=== PATIENT | male | born 1960 | race African-American/Black ===

== ENCOUNTER 2016-07-12 13:59 | Emergency (ER) | payer MEDICARE, OTHER ==
[~2016-07-12] VITALS: Ht 188 cm; Wt 100.0 kg
[~2016-07-12 13:59] MED LIST: ALBU8HFA4 IH; BUPR-93 PO; DOCU250C91 PO; MIRT30TA2 PO; NICO21T TD; OMEP20 PO; TAMS0.4C32 PO
[2016-07-12 14:23] VITALS: BP 123/71
[2016-07-12] MEDS ORDERED: OXYC10IR PO (14:43)
[2016-07-12] MEDS ORDERED: OXYM20TA14 PO (14:43)
[2016-07-12] MEDS ORDERED: METH10SO PO (14:43)
[2016-07-12] MEDS ORDERED: KETOROLAC TROMETHAMINE 30 MG/ML VIAL IVP ONE (18:00)
[2016-07-12 18:26] LABS: BASOPHILS % (AUTO) 0.8 % (0.0-2.0); EOSINOPHILS % (AUTO) 2.6 % (1.0-6.0); HEMATOCRIT 39.8 % (41-53); HEMOGLOBIN 12.5 g/dL (13.5-17.5); LYMPHOCYTES # (AUTO) 4.5 K/uL (1.0-4.8); LYMPHOCYTES % (AUTO) 46.9 % (22.0-44.0); MEAN CORPUSCULAR HEMOGLOBIN 28.5 pg (26.0-34.0); MEAN CORPUSCULAR HGB CONC 31.3 G/dL (31.0-37.0); MEAN CORPUSCULAR VOLUME 91 fL (80-100); MONOCYTES # (AUTO) 1.1 K/uL (0.1-1.0); MONOCYTES % (AUTO) 11.5 % (2.0-9.0); NEUTROPHILS # (AUTO) 3.7 K/uL (1.8-7.7); NEUTROPHILS % (AUTO) 38.2 % (40.0-70.0); PLATELET COUNT (AUTO) 353 K/uL (150-450); RED BLOOD CELL COUNT(AUTO) 4.38 MIL/uL (4.50-5.90); RED CELL DISTRIBUTION WIDTH 16.1 % (11.5-14.5); WHITE BLOOD COUNT (AUTO) 9.7 K/uL (4.5-11.0)
[2016-07-12 18:38] LABS: ANION GAP 6 mmol/L (8-16); CALCIUM, TOTAL 8.7 mg/dL (8.8-10.5); CARBON DIOXIDE 30 mmol/L (22-29); CHLORIDE 103 mmol/L (98-107); CREATININE 1.14 mg/dL (0.60-1.30); GLOMERULAR FILTR. RATE CALC > 60 mL/min (>60); POTASSIUM 4.1 mmol/L (3.5-5.1); SODIUM SERUM 139 mmol/L (136-145); UREA NITROGEN, BLOOD 6 mg/dL (7-18)
[2016-07-12 18:40] LABS: PROTHROMBIN TIME 10.8 SEC (9.4-11.6)
[2016-07-12 18:45] LABS: ALANINE AMINOTRANSFERASE 63 U/L (12-78); ASPARTATE AMINOTRANSFERASE 37 U/L (15-37); BILIRUBIN,TOTAL 0.2 mg/dL (0.1-1.0); TOTAL PROTEIN, SERUM 8.5 g/dL (6.4-8.2)
[2016-07-12] MEDS ORDERED: KETOROLAC TROMETHAMINE 60 MG/2 ML VIAL IM ONE (19:00)
[2016-07-12] MEDS ORDERED: MORPHINE SULFATE 10 MG/ML SYRINGE IM ONE (19:30)
[2016-07-12] MEDS ORDERED: ONDANSETRON HCL 4 MG/2 ML VIAL IM ONE (19:30)
[2016-07-12] MEDS ORDERED: CEPHALEXIN MONOHYDRATE 500 MG CAPSULE PO ONE (19:30)
[2016-07-12] MEDS ORDERED: SULFAMETHOX/TRIMETH DS 800-160 MG/TABLET PO ONE (19:30)
== END 2016-07-12 19:57 | disposition home or self-care (01) ==
LOC: EMS 14:01
DX: L03.116 Cellulitis of left lower limb (principal); F17.210 Nicotine dependence, cigarettes, uncomplicated; Z91.013 Allergy to seafood
CPT/HCPCS: 36415; 80053; 85025; 85610; 85730; 93971; 96372; 99285; J1885; J2270; J2405

== ENCOUNTER 2016-10-03 21:38 | Inpatient (IN) | payer MEDICARE, MEDICAID ==
[~2016-10-03] VITALS: Ht 188 cm; Wt 93.0 kg
[~2016-10-03 21:38] MED LIST changes: -ALBU8HFA4 IH; -DOCU250C91 PO; +METH10SO PO; -NICO21T TD; -OMEP20 PO; +OXYC10IR PO; +OXYM20TA14 PO; -TAMS0.4C32 PO
[2016-10-03] MEDS ORDERED: QUEtiapine FUMARATE 100 MG TABLET PO PRN (22:30)
[2016-10-03 22:56] VITALS: BP 127/78
[2016-10-04 00:21] VITALS: BP 139/77
[2016-10-04] MEDS: ZOLPIDEM TARTRATE 10 MG TABLET PO PRN ×2 (00:38→21:23)
[2016-10-04] MEDS: LORazepam 2 MG TABLET PO PRN (04:10)
[2016-10-04 08:47] VITALS: BP 123/77
[2016-10-04] MEDS: BuPROPion HCL XL 150 MG ER TABLET PO SCH (09:04)
[2016-10-04] MEDS ORDERED: LOPERAMIDE HCL 2 MG CAPSULE PO PRN (09:15)
[2016-10-04] MEDS ORDERED: PETROLATUM,WHITE 71 GM JELLY TP PRN (09:15)
[2016-10-04] MEDS ORDERED: IBUPROFEN 600 MG TABLET PO PRN (09:15)
[2016-10-04] MEDS ORDERED: MAGNESIUM HYDROXIDE SUSPENSION 30 ML UDCUP PO PRN (09:15)
[2016-10-04] MEDS ORDERED: ALBUTEROL SULFATE HFA 90 MCG/PUFF 8 GM INHALER IH PRN (09:15)
[2016-10-04] MEDS ORDERED: ACETAMINOPHEN 325 MG TABLET PO PRN (09:15)
[2016-10-04] MEDS ORDERED: ONDANSETRON HCL 4 MG TABLET PO PRN (09:15)
[2016-10-04] MEDS ORDERED: MAG HYDROX/AL HYDROX/SIMETH ES 30 ML SUSPENSION UDCUP PO PRN (09:15)
[2016-10-04] MEDS ORDERED: BENZOCAINE/MENTHOL LOZENGE MM PRN (09:15)
[2016-10-04] MEDS ORDERED: BACITRACIN 28.4 GM OINTMENT TP PRN (09:15)
[2016-10-04] MEDS ORDERED: METHADONE HCL 10 MG/5 ML SOLUTION ORAL.SYG PO SCH (09:15)
[2016-10-04] MEDS ORDERED: CloNIDine HCL 0.1 MG TABLET PO PRN (09:15)
[2016-10-04] MEDS: NICOTINE 21 MG/24 HOUR PATCH TD SCH (12:52)
[2016-10-04] MEDS ORDERED: METHADONE HCL 10 MG/5 ML SOLUTION ORAL.SYG PO ONE (15:15)
[2016-10-04] MEDS: OxyCODONE HCL 10 MG IR TABLET PO SCH ×2 (16:27→20:34)
[2016-10-04 16:31] VITALS: BP 135/88
[2016-10-04] MEDS ORDERED: DENTURE ADHESIVE 68 GM CREAM DT PRN (19:30)
[2016-10-04] MEDS: MIRTAZAPINE 15 MG TABLET PO SCH (20:34)
[2016-10-05 00:40] VITALS: BP 113/74
[2016-10-05] MEDS: LORazepam 2 MG TABLET PO PRN ×2 (00:44→17:43)
[2016-10-05] MEDS: METHADONE HCL 10 MG/5 ML SOLUTION ORAL.SYG PO SCH (06:57)
[2016-10-05 08:38] VITALS: BP 125/82
[2016-10-05] MEDS: NICOTINE 21 MG/24 HOUR PATCH TD SCH (09:07)
[2016-10-05] MEDS: TAMSULOSIN HCL 0.4 MG CAPSULE PO SCH (09:07)
[2016-10-05] MEDS: OxyCODONE HCL 10 MG IR TABLET PO SCH ×4 (09:07→20:07)
[2016-10-05] MEDS: MULTIVITAMINS WITH MINERALS, THERAPEUTIC TABLET PO SCH (09:07)
[2016-10-05] MEDS: BuPROPion HCL XL 150 MG ER TABLET PO SCH (09:08)
[2016-10-05] MEDS: OMEPRAZOLE 20 MG CAPSULE PO SCH (09:08)
[2016-10-05] MEDS: DOCUSATE SODIUM 100 MG CAPSULE PO SCH (09:08)
[2016-10-05 16:17] VITALS: BP 137/78
[2016-10-05] MEDS: MIRTAZAPINE 15 MG TABLET PO SCH (20:07)
[2016-10-06 00:10] VITALS: BP 138/66
[2016-10-06] MEDS: LORazepam 2 MG TABLET PO PRN (01:21)
[2016-10-06 06:00] VITALS: BP 127/79
[2016-10-06] MEDS: METHADONE HCL 10 MG/5 ML SOLUTION ORAL.SYG PO SCH (06:09)
[2016-10-06 08:24] VITALS: BP 115/60
[2016-10-06] MEDS: OMEPRAZOLE 20 MG CAPSULE PO SCH (09:17)
[2016-10-06] MEDS: DOCUSATE SODIUM 100 MG CAPSULE PO SCH (09:17)
[2016-10-06] MEDS: BuPROPion HCL XL 150 MG ER TABLET PO SCH (09:17)
[2016-10-06] MEDS: TAMSULOSIN HCL 0.4 MG CAPSULE PO SCH (09:17)
[2016-10-06] MEDS: MULTIVITAMINS WITH MINERALS, THERAPEUTIC TABLET PO SCH (09:17)
[2016-10-06] MEDS: NICOTINE 21 MG/24 HOUR PATCH TD SCH (09:18)
[2016-10-06] MEDS: OxyCODONE HCL 10 MG IR TABLET PO SCH ×4 (09:21→20:07)
[2016-10-06 16:07] VITALS: BP 110/73
[2016-10-06] MEDS: MIRTAZAPINE 15 MG TABLET PO SCH (20:06)
[2016-10-06] MEDS: ZOLPIDEM TARTRATE 10 MG TABLET PO PRN (21:00)
[2016-10-07 00:44] VITALS: BP 104/65
[2016-10-07] MEDS: LORazepam 2 MG TABLET PO PRN ×2 (00:57→18:41)
[2016-10-07 05:53] VITALS: BP 119/70
[2016-10-07] MEDS: METHADONE HCL 10 MG/5 ML SOLUTION ORAL.SYG PO SCH (05:54)
[2016-10-07 08:29] VITALS: BP 117/73
[2016-10-07] MEDS: DOCUSATE SODIUM 100 MG CAPSULE PO SCH (08:29)
[2016-10-07] MEDS: OMEPRAZOLE 20 MG CAPSULE PO SCH (08:29)
[2016-10-07] MEDS: BuPROPion HCL XL 150 MG ER TABLET PO SCH (08:29)
[2016-10-07] MEDS: MULTIVITAMINS WITH MINERALS, THERAPEUTIC TABLET PO SCH (08:29)
[2016-10-07] MEDS: TAMSULOSIN HCL 0.4 MG CAPSULE PO SCH (08:29)
[2016-10-07] MEDS: OxyCODONE HCL 10 MG IR TABLET PO SCH ×4 (08:30→21:09)
[2016-10-07] MEDS: NICOTINE 21 MG/24 HOUR PATCH TD SCH (08:30)
[2016-10-07 16:11] VITALS: BP 114/70
[2016-10-07] MEDS: MIRTAZAPINE 15 MG TABLET PO SCH (21:08)
[2016-10-07] MEDS: ZOLPIDEM TARTRATE 10 MG TABLET PO PRN (22:38)
[2016-10-08 01:28] VITALS: BP 112/62
[2016-10-08] MEDS: LORazepam 2 MG TABLET PO PRN ×2 (01:33→23:51)
[2016-10-08 05:41] VITALS: BP 138/72
[2016-10-08] MEDS: METHADONE HCL 10 MG/5 ML SOLUTION ORAL.SYG PO SCH (05:44)
[2016-10-08 08:22] VITALS: BP 114/72
[2016-10-08] MEDS: NICOTINE 21 MG/24 HOUR PATCH TD SCH (09:15)
[2016-10-08] MEDS: MULTIVITAMINS WITH MINERALS, THERAPEUTIC TABLET PO SCH (09:16)
[2016-10-08] MEDS: OMEPRAZOLE 20 MG CAPSULE PO SCH (09:17)
[2016-10-08] MEDS: DOCUSATE SODIUM 100 MG CAPSULE PO SCH (09:17)
[2016-10-08] MEDS: BuPROPion HCL XL 150 MG ER TABLET PO SCH (09:17)
[2016-10-08] MEDS: OxyCODONE HCL 10 MG IR TABLET PO SCH ×4 (09:18→20:17)
[2016-10-08] MEDS: TAMSULOSIN HCL 0.4 MG CAPSULE PO SCH (10:25)
[2016-10-08 16:34] VITALS: BP 122/79
[2016-10-08] MEDS: MIRTAZAPINE 15 MG TABLET PO SCH (20:17)
[2016-10-08] MEDS: ZOLPIDEM TARTRATE 10 MG TABLET PO PRN (22:04)
[2016-10-09 00:01] VITALS: BP 124/86
[2016-10-09] MEDS: METHADONE HCL 10 MG/5 ML SOLUTION ORAL.SYG PO SCH (06:01)
[2016-10-09 08:11] LABS: BASOPHILS % (AUTO) 0.7 % (0.0-2.0); HEMATOCRIT 36.9 % (41-53); HEMOGLOBIN 12.3 g/dL (13.5-17.5); LYMPHOCYTES # (AUTO) 3.1 K/uL (1.0-4.8); LYMPHOCYTES % (AUTO) 47.6 % (22.0-44.0); MEAN CORPUSCULAR HEMOGLOBIN 30.3 pg (26.0-34.0); MEAN CORPUSCULAR HGB CONC 33.2 G/dL (31.0-37.0); MEAN CORPUSCULAR VOLUME 91 fL (80-100); MONOCYTES # (AUTO) 0.8 K/uL (0.1-1.0); NEUTROPHILS # (AUTO) 2.3 K/uL (1.8-7.7); NEUTROPHILS % (AUTO) 35.7 % (40.0-70.0); PLATELET COUNT (AUTO) 282 K/uL (150-450); RED BLOOD CELL COUNT(AUTO) 4.04 MIL/uL (4.50-5.90); RED CELL DISTRIBUTION WIDTH 15.8 % (11.5-14.5); WHITE BLOOD COUNT (AUTO) 6.5 K/uL (4.5-11.0)
[2016-10-09 08:28] VITALS: BP 119/76
[2016-10-09 09:00] LABS: ALANINE AMINOTRANSFERASE 73 U/L (12-78); ALBUMIN 2.9 g/dL (3.4-5.0); ANION GAP 5 mmol/L (8-16); ASPARTATE AMINOTRANSFERASE 55 U/L (15-37); BILIRUBIN,TOTAL 0.2 mg/dL (0.1-1.0); CALCIUM, TOTAL 8.6 mg/dL (8.8-10.5); CARBON DIOXIDE 30 mmol/L (22-29); CHLORIDE 105 mmol/L (98-107); CREATININE 1.12 mg/dL (0.60-1.30); GLOMERULAR FILTR. RATE CALC > 60 mL/min (>60); POTASSIUM 4.8 mmol/L (3.5-5.1); SODIUM SERUM 140 mmol/L (136-145); THYROID STIMULATING HORMONE 3.79 uIU/mL (0.36-3.74); TOTAL PROTEIN, SERUM 7.3 g/dL (6.4-8.2); UREA NITROGEN, BLOOD 13 mg/dL (7-18)
[2016-10-09] MEDS: DOCUSATE SODIUM 100 MG CAPSULE PO SCH (09:04)
[2016-10-09] MEDS: TAMSULOSIN HCL 0.4 MG CAPSULE PO SCH (09:04)
[2016-10-09] MEDS: MULTIVITAMINS WITH MINERALS, THERAPEUTIC TABLET PO SCH (09:05)
[2016-10-09] MEDS: OxyCODONE HCL 10 MG IR TABLET PO SCH ×3 (09:05→16:09)
[2016-10-09] MEDS: BuPROPion HCL XL 150 MG ER TABLET PO SCH (09:05)
[2016-10-09] MEDS: OMEPRAZOLE 20 MG CAPSULE PO SCH (09:05)
[2016-10-09 09:07] LABS: HEMOGLOBIN A1C 5.7 % (4.5-6.2)
[2016-10-09] MEDS: NICOTINE 21 MG/24 HOUR PATCH TD SCH (09:07)
[2016-10-09] MEDS: FUROSEMIDE 20 MG TABLET PO SCH ×2 (09:45→16:08)
[2016-10-09 16:17] VITALS: BP 117/66
[2016-10-09] MEDS ORDERED: OMEP20 PO (17:37)
[2016-10-09] MEDS ORDERED: TAMS0.4C32 PO (17:37)
[2016-10-09] MEDS ORDERED: FURO40 PO (17:37)
[2016-10-09] MEDS ORDERED: DSS100 PO (17:40)
== END 2016-10-09 19:35 | disposition home or self-care (01) | DRG 885 ==
LOC: B2X 22:32 → EDSTATUS 22:59 → B2X 10-07 15:29
PROVIDERS: ADMIT Psychiatry & Neurology Psychiatry; ATTEND Psychiatry & Neurology Psychiatry
DX: F33.2 Major depressive disorder, recurrent severe without psychotic features (principal); R45.851 Suicidal ideations; F11.20 Opioid dependence, uncomplicated; Z91.14 Patient's other noncompliance with medication regimen; I10 Essential (primary) hypertension; G47.00 Insomnia, unspecified; G89.4 Chronic pain syndrome; J44.9 Chronic obstructive pulmonary disease, unspecified; K59.00 Constipation, unspecified; K21.9 Gastro-esophageal reflux disease without esophagitis; M16.10 Unilateral primary osteoarthritis, unspecified hip; M17.0 Bilateral primary osteoarthritis of knee; N40.0 Benign prostatic hyperplasia without lower urinary tract symptoms; Z96.653 Presence of artificial knee joint, bilateral; F12.90 Cannabis use, unspecified, uncomplicated; E78.5 Hyperlipidemia, unspecified; B18.2 Chronic viral hepatitis C; F17.210 Nicotine dependence, cigarettes, uncomplicated; Z79.899 Other long term (current) drug therapy; Z79.51 Long term (current) use of inhaled steroids; Z79.1 Long term (current) use of non-steroidal anti-inflammatories (NSAID); Z99.3 Dependence on wheelchair; Z71.41 Alcohol abuse counseling and surveillance of alcoholic; Z71.6 Tobacco abuse counseling; Z82.49 Family history of ischemic heart disease and other diseases of the circulatory system; Z59.0 Homelessness
CPT/HCPCS: 83036; 84439; 84443

== ENCOUNTER 2016-10-17 04:59 | Inpatient (IN) | payer MEDICARE, MEDICAID ==
[~2016-10-17] VITALS: Ht 188 cm; Wt 102.5 kg
[~2016-10-17 04:59] MED LIST changes: +DSS100 PO; +FURO40 PO; +OMEP20 PO; -OXYC10IR PO; -OXYM20TA14 PO; +TAMS0.4C32 PO
[2016-10-17] MEDS ORDERED: OXYC10 PO (05:15)
[2016-10-17 05:34] LABS: BASOPHILS % (AUTO) 1.5 % (0.0-2.0); EOSINOPHILS % (AUTO) 3.2 % (1.0-6.0); HEMOGLOBIN 12.9 g/dL (13.5-17.5); LYMPHOCYTES # (AUTO) 2.6 K/uL (1.0-4.8); LYMPHOCYTES % (AUTO) 31.8 % (22.0-44.0); MEAN CORPUSCULAR HGB CONC 33.1 G/dL (31.0-37.0); MEAN CORPUSCULAR VOLUME 91 fL (80-100); MONOCYTES % (AUTO) 11.7 % (2.0-9.0); NEUTROPHILS # (AUTO) 4.3 K/uL (1.8-7.7); NEUTROPHILS % (AUTO) 51.8 % (40.0-70.0); PLATELET COUNT (AUTO) 333 K/uL (150-450); RED BLOOD CELL COUNT(AUTO) 4.29 MIL/uL (4.50-5.90); RED CELL DISTRIBUTION WIDTH 15.4 % (11.5-14.5); WHITE BLOOD COUNT (AUTO) 8.3 K/uL (4.5-11.0)
[2016-10-17 05:42] LABS: ANION GAP 7 mmol/L (8-16); CALCIUM, TOTAL 8.8 mg/dL (8.8-10.5); CARBON DIOXIDE 27 mmol/L (22-29); CHLORIDE 103 mmol/L (98-107); CREATININE 1.02 mg/dL (0.60-1.30); GLOMERULAR FILTR. RATE CALC > 60 mL/min (>60); POTASSIUM 4.1 mmol/L (3.5-5.1); SODIUM SERUM 137 mmol/L (136-145); UREA NITROGEN, BLOOD 11 mg/dL (7-18)
[2016-10-17 05:47] LABS: ALANINE AMINOTRANSFERASE 72 U/L (12-78); ALBUMIN 2.9 g/dL (3.4-5.0); ASPARTATE AMINOTRANSFERASE 47 U/L (15-37); BILIRUBIN,TOTAL 0.2 mg/dL (0.1-1.0); TOTAL PROTEIN, SERUM 8.8 g/dL (6.4-8.2)
[2016-10-17] MEDS ORDERED: ONDANSETRON HCL 4 MG TABLET PO PRN (08:15)
[2016-10-17] MEDS ORDERED: BACITRACIN 28.4 GM OINTMENT TP PRN (08:15)
[2016-10-17] MEDS ORDERED: LOPERAMIDE HCL 2 MG CAPSULE PO PRN (08:15)
[2016-10-17] MEDS ORDERED: ACETAMINOPHEN 325 MG TABLET PO PRN (08:15)
[2016-10-17] MEDS ORDERED: MAG HYDROX/AL HYDROX/SIMETH ES 30 ML SUSPENSION UDCUP PO PRN (08:15)
[2016-10-17] MEDS ORDERED: MAGNESIUM HYDROXIDE SUSPENSION 30 ML UDCUP PO PRN (08:15)
[2016-10-17] MEDS ORDERED: PETROLATUM,WHITE 71 GM JELLY TP PRN (08:15)
[2016-10-17] MEDS ORDERED: ALBUTEROL SULFATE HFA 90 MCG/PUFF 8 GM INHALER IH PRN (08:15)
[2016-10-17] MEDS ORDERED: CloNIDine HCL 0.1 MG TABLET PO PRN (08:15)
[2016-10-17] MEDS ORDERED: IBUPROFEN 600 MG TABLET PO PRN (08:15)
[2016-10-17] MEDS ORDERED: BENZOCAINE/MENTHOL LOZENGE [8 LOZENGES/PACKET] MM PRN (08:30)
[2016-10-17] MEDS: METHADONE HCL 10 MG/5 ML SOLUTION ORAL.SYG PO SCH ×2 (09:00→14:56)
[2016-10-17] MEDS: OMEPRAZOLE 20 MG CAPSULE PO SCH (09:45)
[2016-10-17] MEDS: TAMSULOSIN HCL 0.4 MG CAPSULE PO SCH (09:45)
[2016-10-17] MEDS: DOCUSATE SODIUM 100 MG CAPSULE PO SCH (09:45)
[2016-10-17] MEDS: FUROSEMIDE 40 MG TABLET PO SCH (09:45)
[2016-10-17] MEDS: OxyCODONE HCL 10 MG IR TABLET PO PRN ×2 (11:47→19:09)
[2016-10-17 11:49] VITALS: BP 126/69
[2016-10-17 17:58] VITALS: BP 119/67
[2016-10-17 19:07] VITALS: BP 124/77
[2016-10-17] MEDS: ZOLPIDEM TARTRATE 10 MG TABLET PO PRN (22:49)
[2016-10-18] MEDS: LORazepam 1 MG TABLET PO PRN (00:11)
[2016-10-18 00:25] VITALS: BP 122/60
[2016-10-18] MEDS: OxyCODONE HCL 10 MG IR TABLET PO PRN ×4 (02:08→22:17)
[2016-10-18] MEDS: NICOTINE 21 MG/24 HOUR PATCH TD SCH (08:06)
[2016-10-18] MEDS: DOCUSATE SODIUM 100 MG CAPSULE PO SCH (08:07)
[2016-10-18] MEDS: OMEPRAZOLE 20 MG CAPSULE PO SCH (08:07)
[2016-10-18] MEDS: FUROSEMIDE 40 MG TABLET PO SCH (08:07)
[2016-10-18] MEDS: BuPROPion HCL XL 150 MG ER TABLET PO SCH (08:07)
[2016-10-18] MEDS: TAMSULOSIN HCL 0.4 MG CAPSULE PO SCH (08:07)
[2016-10-18 08:30] VITALS: BP 124/64
[2016-10-18] MEDS: METHADONE HCL 10 MG/5 ML SOLUTION ORAL.SYG PO SCH (08:36)
[2016-10-18 09:35] VITALS: BP 130/70
[2016-10-18 16:02] VITALS: BP 117/66
[2016-10-18 19:22] LABS: APPEARANCE,URINE CLEAR (CLEAR); GLUCOSE, URINE (UA) NEGATIVE (NEGATIVE); KETONES,URINE NEGATIVE (NEGATIVE); LEUKOCYTE ESTERASE ,URINE NEGATIVE (NEGATIVE); OCCULT BLOOD,URINE NEGATIVE (NEGATIVE); PH,URINE 5.5 (5.0-8.0); PROTEIN,URINE NEGATIVE (NEGATIVE)
[2016-10-18 19:28] LABS: ADD UA MICROSCOPIC NO
[2016-10-18] MEDS: MIRTAZAPINE 15 MG TABLET PO SCH (20:45)
[2016-10-18 22:13] VITALS: BP 120/68
[2016-10-19 04:00] VITALS: BP 126/79
[2016-10-19] MEDS: OxyCODONE HCL 10 MG IR TABLET PO PRN ×4 (04:05→22:33)
[2016-10-19] MEDS: FERROUS SULFATE 325 MG EC TABLET PO SCH ×2 (06:44→16:31)
[2016-10-19 09:00] VITALS: BP 119/67
[2016-10-19] MEDS: METHADONE HCL 10 MG/5 ML SOLUTION ORAL.SYG PO SCH (09:39)
[2016-10-19] MEDS: TAMSULOSIN HCL 0.4 MG CAPSULE PO SCH (09:47)
[2016-10-19] MEDS: NICOTINE 21 MG/24 HOUR PATCH TD SCH (09:47)
[2016-10-19] MEDS: DOCUSATE SODIUM 100 MG CAPSULE PO SCH (09:48)
[2016-10-19] MEDS: FUROSEMIDE 40 MG TABLET PO SCH (09:48)
[2016-10-19] MEDS: BuPROPion HCL XL 150 MG ER TABLET PO SCH (09:48)
[2016-10-19] MEDS: OMEPRAZOLE 20 MG CAPSULE PO SCH (09:48)
[2016-10-19 16:25] VITALS: BP 113/67
[2016-10-19] MEDS: MIRTAZAPINE 15 MG TABLET PO SCH (20:06)
[2016-10-19 22:25] VITALS: BP 105/71
[2016-10-20] VITALS (7 sets, daily range): BP systolic 110–136; BP diastolic 63–79
[2016-10-20] MEDS: ZOLPIDEM TARTRATE 10 MG TABLET PO PRN (00:34)
[2016-10-20] MEDS: LORazepam 1 MG TABLET PO PRN ×2 (02:11→14:49)
[2016-10-20] MEDS: QUEtiapine FUMARATE 100 MG TABLET PO PRN (02:12)
[2016-10-20] MEDS: OxyCODONE HCL 10 MG IR TABLET PO PRN ×4 (05:04→23:41)
[2016-10-20] MEDS: FERROUS SULFATE 325 MG EC TABLET PO SCH ×2 (06:30→16:23)
[2016-10-20] MEDS: TAMSULOSIN HCL 0.4 MG CAPSULE PO SCH (09:05)
[2016-10-20] MEDS: DOCUSATE SODIUM 100 MG CAPSULE PO SCH (09:05)
[2016-10-20] MEDS: OMEPRAZOLE 20 MG CAPSULE PO SCH (09:05)
[2016-10-20] MEDS: METHADONE HCL 10 MG/5 ML SOLUTION ORAL.SYG PO SCH (09:05)
[2016-10-20] MEDS: BuPROPion HCL XL 150 MG ER TABLET PO SCH (09:06)
[2016-10-20] MEDS: NICOTINE 21 MG/24 HOUR PATCH TD SCH (09:06)
[2016-10-20] MEDS: FUROSEMIDE 40 MG TABLET PO SCH (09:06)
[2016-10-20] MEDS: MIRTAZAPINE 15 MG TABLET PO SCH (20:36)
[2016-10-21 00:40] VITALS: BP 120/75
[2016-10-21] MEDS: ZOLPIDEM TARTRATE 10 MG TABLET PO PRN (00:53)
[2016-10-21] MEDS: QUEtiapine FUMARATE 100 MG TABLET PO PRN (00:54)
[2016-10-21 06:00] VITALS: BP 111/64
[2016-10-21] MEDS: OxyCODONE HCL 10 MG IR TABLET PO PRN ×4 (06:21→22:17)
[2016-10-21] MEDS: FERROUS SULFATE 325 MG EC TABLET PO SCH ×2 (06:49→16:10)
[2016-10-21] MEDS: FUROSEMIDE 40 MG TABLET PO SCH (08:49)
[2016-10-21] MEDS: BuPROPion HCL XL 150 MG ER TABLET PO SCH (08:49)
[2016-10-21] MEDS: OMEPRAZOLE 20 MG CAPSULE PO SCH (08:49)
[2016-10-21] MEDS: TAMSULOSIN HCL 0.4 MG CAPSULE PO SCH (08:49)
[2016-10-21] MEDS: DOCUSATE SODIUM 100 MG CAPSULE PO SCH (08:49)
[2016-10-21 09:38] VITALS: BP 131/63
[2016-10-21] MEDS: METHADONE HCL 10 MG/5 ML SOLUTION ORAL.SYG PO SCH (09:55)
[2016-10-21] MEDS: NICOTINE 21 MG/24 HOUR PATCH TD SCH (10:00)
[2016-10-21 11:51] VITALS: BP 119/70
[2016-10-21 16:14] VITALS: BP 124/69
[2016-10-21] MEDS: MIRTAZAPINE 15 MG TABLET PO SCH (20:22)
[2016-10-21 22:09] VITALS: BP 120/72
[2016-10-22 00:30] VITALS: BP 115/64
[2016-10-22] MEDS: ZOLPIDEM TARTRATE 10 MG TABLET PO PRN ×2 (00:44→22:58)
[2016-10-22] MEDS: FERROUS SULFATE 325 MG EC TABLET PO SCH ×2 (06:53→17:07)
[2016-10-22] MEDS: OxyCODONE HCL 10 MG IR TABLET PO PRN ×2 (07:36→19:07)
[2016-10-22 07:40] VITALS: BP 144/85
[2016-10-22] MEDS: METHADONE HCL 10 MG/5 ML SOLUTION ORAL.SYG PO SCH (08:21)
[2016-10-22] MEDS: TAMSULOSIN HCL 0.4 MG CAPSULE PO SCH (08:21)
[2016-10-22] MEDS: FUROSEMIDE 40 MG TABLET PO SCH (08:22)
[2016-10-22] MEDS: NICOTINE 21 MG/24 HOUR PATCH TD SCH (08:22)
[2016-10-22] MEDS: OMEPRAZOLE 20 MG CAPSULE PO SCH (08:22)
[2016-10-22] MEDS: BuPROPion HCL XL 150 MG ER TABLET PO SCH (08:22)
[2016-10-22] MEDS: DOCUSATE SODIUM 100 MG CAPSULE PO SCH (08:22)
[2016-10-22 16:15] VITALS: BP 115/64
[2016-10-22 19:07] VITALS: BP 125/70
[2016-10-22] MEDS: MIRTAZAPINE 30 MG TABLET PO SCH (20:50)
[2016-10-23] VITALS (8 sets, daily range): BP systolic 103–130; BP diastolic 65–87
[2016-10-23] MEDS: OxyCODONE HCL 10 MG IR TABLET PO PRN ×4 (01:20→20:04)
[2016-10-23] MEDS: FERROUS SULFATE 325 MG EC TABLET PO SCH ×2 (06:43→17:18)
[2016-10-23] MEDS: OMEPRAZOLE 20 MG CAPSULE PO SCH (09:10)
[2016-10-23] MEDS: FUROSEMIDE 40 MG TABLET PO SCH (09:10)
[2016-10-23] MEDS: DOCUSATE SODIUM 100 MG CAPSULE PO SCH (09:10)
[2016-10-23] MEDS: BuPROPion HCL XL 150 MG ER TABLET PO SCH (09:10)
[2016-10-23] MEDS: TAMSULOSIN HCL 0.4 MG CAPSULE PO SCH (09:10)
[2016-10-23] MEDS: NICOTINE 21 MG/24 HOUR PATCH TD SCH (09:11)
[2016-10-23] MEDS: METHADONE HCL 10 MG/5 ML SOLUTION ORAL.SYG PO SCH (09:12)
[2016-10-23] MEDS: MIRTAZAPINE 30 MG TABLET PO SCH (20:40)
[2016-10-24] MEDS: ZOLPIDEM TARTRATE 10 MG TABLET PO PRN ×2 (00:30→22:02)
[2016-10-24] MEDS: LORazepam 1 MG TABLET PO PRN ×3 (00:31→23:56)
[2016-10-24 00:48] VITALS: BP 110/68
[2016-10-24] MEDS: OxyCODONE HCL 10 MG IR TABLET PO PRN ×4 (02:05→20:27)
[2016-10-24 02:07] VITALS: BP 119/70
[2016-10-24] MEDS: DENTURE ADHESIVE 68 GM CREAM DT PRN (06:19)
[2016-10-24] MEDS: FERROUS SULFATE 325 MG EC TABLET PO SCH ×2 (06:19→16:55)
[2016-10-24] MEDS: DOCUSATE SODIUM 100 MG CAPSULE PO SCH (08:02)
[2016-10-24] MEDS: OMEPRAZOLE 20 MG CAPSULE PO SCH (08:02)
[2016-10-24] MEDS: TAMSULOSIN HCL 0.4 MG CAPSULE PO SCH (08:03)
[2016-10-24] MEDS: NICOTINE 21 MG/24 HOUR PATCH TD SCH (08:03)
[2016-10-24] MEDS: BuPROPion HCL XL 150 MG ER TABLET PO SCH (08:04)
[2016-10-24] MEDS: FUROSEMIDE 40 MG TABLET PO SCH (08:04)
[2016-10-24 08:14] VITALS: BP 154/92
[2016-10-24] MEDS: METHADONE HCL 10 MG/5 ML SOLUTION ORAL.SYG PO SCH (10:01)
[2016-10-24 16:27] VITALS: BP 123/80
[2016-10-24 18:36] VITALS: BP 127/67
[2016-10-24 20:02] VITALS: BP 117/63
[2016-10-24] MEDS: MIRTAZAPINE 30 MG TABLET PO SCH (20:34)
[2016-10-25 00:18] VITALS: BP 118/65
[2016-10-25] MEDS: OxyCODONE HCL 10 MG IR TABLET PO PRN (03:19)
[2016-10-25 03:21] VITALS: BP 127/69
[2016-10-25] MEDS: DENTURE ADHESIVE 68 GM CREAM DT PRN (05:43)
[2016-10-25] MEDS: FERROUS SULFATE 325 MG EC TABLET PO SCH ×2 (06:37→17:11)
[2016-10-25 09:00] VITALS: BP 123/85
[2016-10-25] MEDS: OMEPRAZOLE 20 MG CAPSULE PO SCH (09:32)
[2016-10-25] MEDS: FUROSEMIDE 40 MG TABLET PO SCH (09:32)
[2016-10-25] MEDS: TAMSULOSIN HCL 0.4 MG CAPSULE PO SCH (09:32)
[2016-10-25] MEDS: DOCUSATE SODIUM 100 MG CAPSULE PO SCH (09:32)
[2016-10-25] MEDS: NICOTINE 21 MG/24 HOUR PATCH TD SCH (09:33)
[2016-10-25] MEDS: BuPROPion HCL XL 150 MG ER TABLET PO SCH (09:33)
[2016-10-25] MEDS: OxyCODONE HCL 10 MG IR TABLET PO SCH ×4 (09:38→21:05)
[2016-10-25] MEDS: METHADONE HCL 10 MG/5 ML SOLUTION ORAL.SYG PO SCH (09:44)
[2016-10-25 17:32] VITALS: BP 146/84
[2016-10-25] MEDS: LORazepam 1 MG TABLET PO PRN (19:54)
[2016-10-25] MEDS: QUEtiapine FUMARATE 100 MG TABLET PO PRN (19:54)
[2016-10-25] MEDS: MIRTAZAPINE 30 MG TABLET PO SCH (21:04)
[2016-10-26] MEDS: ZOLPIDEM TARTRATE 10 MG TABLET PO PRN (01:46)
[2016-10-26 02:00] VITALS: BP 115/71
[2016-10-26] MEDS: LORazepam 1 MG TABLET PO PRN ×2 (04:10→18:53)
[2016-10-26] MEDS: QUEtiapine FUMARATE 100 MG TABLET PO PRN (04:10)
[2016-10-26 04:13] VITALS: BP 119/68
[2016-10-26] MEDS: FERROUS SULFATE 325 MG EC TABLET PO SCH ×2 (06:44→16:33)
[2016-10-26] MEDS: DOCUSATE SODIUM 100 MG CAPSULE PO SCH (08:14)
[2016-10-26 08:15] VITALS: BP 123/69
[2016-10-26] MEDS: FUROSEMIDE 40 MG TABLET PO SCH (08:15)
[2016-10-26] MEDS: BuPROPion HCL XL 150 MG ER TABLET PO SCH (08:15)
[2016-10-26] MEDS: OxyCODONE HCL 10 MG IR TABLET PO SCH ×4 (08:15→21:17)
[2016-10-26] MEDS: OMEPRAZOLE 20 MG CAPSULE PO SCH (08:15)
[2016-10-26] MEDS: TAMSULOSIN HCL 0.4 MG CAPSULE PO SCH (08:15)
[2016-10-26] MEDS: METHADONE HCL 10 MG/5 ML SOLUTION ORAL.SYG PO SCH (08:16)
[2016-10-26] MEDS: NICOTINE 21 MG/24 HOUR PATCH TD SCH (08:26)
[2016-10-26 16:05] VITALS: BP 115/64
[2016-10-26] MEDS: MIRTAZAPINE 30 MG TABLET PO SCH (21:16)
[2016-10-27] MEDS: ZOLPIDEM TARTRATE 10 MG TABLET PO PRN (00:21)
[2016-10-27 00:22] VITALS: BP 112/69
[2016-10-27 05:00] VITALS: BP 119/64
[2016-10-27] MEDS: LORazepam 1 MG TABLET PO PRN (05:00)
[2016-10-27] MEDS: FERROUS SULFATE 325 MG EC TABLET PO SCH ×2 (06:40→16:32)
[2016-10-27] MEDS: METHADONE HCL 10 MG/5 ML SOLUTION ORAL.SYG PO SCH (08:27)
[2016-10-27] MEDS: TAMSULOSIN HCL 0.4 MG CAPSULE PO SCH (08:28)
[2016-10-27] MEDS: NICOTINE 21 MG/24 HOUR PATCH TD SCH (08:28)
[2016-10-27] MEDS: OxyCODONE HCL 10 MG IR TABLET PO SCH ×4 (08:28→20:43)
[2016-10-27] MEDS: FUROSEMIDE 40 MG TABLET PO SCH (08:29)
[2016-10-27] MEDS: BuPROPion HCL XL 150 MG ER TABLET PO SCH (08:29)
[2016-10-27] MEDS: OMEPRAZOLE 20 MG CAPSULE PO SCH (08:29)
[2016-10-27] MEDS: DOCUSATE SODIUM 100 MG CAPSULE PO SCH (08:29)
[2016-10-27 08:47] VITALS: BP 121/63
[2016-10-27 18:31] VITALS: BP 115/65
[2016-10-27] MEDS: MIRTAZAPINE 30 MG TABLET PO SCH (20:44)
[2016-10-28] VITALS: BP 118/62
[2016-10-28] MEDS: ZOLPIDEM TARTRATE 10 MG TABLET PO PRN (00:03)
[2016-10-28] MEDS: LORazepam 1 MG TABLET PO PRN ×2 (02:24→18:42)
[2016-10-28] MEDS: QUEtiapine FUMARATE 100 MG TABLET PO PRN (02:25)
[2016-10-28] MEDS: FERROUS SULFATE 325 MG EC TABLET PO SCH ×2 (06:56→18:34)
[2016-10-28 09:00] VITALS: BP 117/59
[2016-10-28] MEDS: DOCUSATE SODIUM 100 MG CAPSULE PO SCH (09:05)
[2016-10-28] MEDS: OMEPRAZOLE 20 MG CAPSULE PO SCH (09:05)
[2016-10-28] MEDS: FUROSEMIDE 40 MG TABLET PO SCH (09:05)
[2016-10-28] MEDS: TAMSULOSIN HCL 0.4 MG CAPSULE PO SCH (09:05)
[2016-10-28] MEDS: OxyCODONE HCL 10 MG IR TABLET PO SCH ×4 (09:05→20:53)
[2016-10-28] MEDS: BuPROPion HCL XL 150 MG ER TABLET PO SCH (09:06)
[2016-10-28] MEDS: NICOTINE 21 MG/24 HOUR PATCH TD SCH (09:08)
[2016-10-28] MEDS: METHADONE HCL 10 MG/5 ML SOLUTION ORAL.SYG PO SCH (09:24)
[2016-10-28 16:15] VITALS: BP 111/66
[2016-10-28] MEDS: MIRTAZAPINE 30 MG TABLET PO SCH (20:53)
[2016-10-28 20:54] VITALS: BP 126/79
[2016-10-29] MEDS: LORazepam 1 MG TABLET PO PRN (00:44)
[2016-10-29 00:58] VITALS: BP 119/74
[2016-10-29] MEDS: QUEtiapine FUMARATE 100 MG TABLET PO PRN (03:01)
[2016-10-29] MEDS: FERROUS SULFATE 325 MG EC TABLET PO SCH (06:34)
[2016-10-29] MEDS: METHADONE HCL 10 MG/5 ML SOLUTION ORAL.SYG PO SCH (09:00)
[2016-10-29] MEDS: TAMSULOSIN HCL 0.4 MG CAPSULE PO SCH (09:00)
[2016-10-29] MEDS: DOCUSATE SODIUM 100 MG CAPSULE PO SCH (09:00)
[2016-10-29] MEDS: OMEPRAZOLE 20 MG CAPSULE PO SCH (09:00)
[2016-10-29] MEDS: BuPROPion HCL XL 150 MG ER TABLET PO SCH (09:00)
[2016-10-29] MEDS: FUROSEMIDE 40 MG TABLET PO SCH (09:00)
[2016-10-29] MEDS: OxyCODONE HCL 10 MG IR TABLET PO SCH ×2 (09:00→12:37)
[2016-10-29] MEDS: NICOTINE 21 MG/24 HOUR PATCH TD SCH (09:00)
[2016-10-29] MEDS ORDERED: MIRT30 PO (12:54)
[2016-10-29] MEDS ORDERED: OMEP20 PO (12:56)
[2016-10-29] MEDS ORDERED: FURO40 PO (12:56)
[2016-10-29] MEDS ORDERED: FERR-89 PO (12:56)
[2016-10-29] MEDS ORDERED: DSS100 PO (12:56)
[2016-10-29] MEDS ORDERED: TAMS0.4C32 PO (12:56)
== END 2016-10-29 13:30 | disposition home or self-care (01) | DRG 885 ==
LOC: EMS 05:00 → AHU 05:58 → 3EX 16:50
PROVIDERS: ADMIT Psychiatry & Neurology Psychiatry; ATTEND Psychiatry & Neurology Psychiatry
DX: F33.2 Major depressive disorder, recurrent severe without psychotic features (principal); R45.851 Suicidal ideations; F11.20 Opioid dependence, uncomplicated; B18.2 Chronic viral hepatitis C; E78.5 Hyperlipidemia, unspecified; F17.210 Nicotine dependence, cigarettes, uncomplicated; F41.9 Anxiety disorder, unspecified; G47.00 Insomnia, unspecified; G89.4 Chronic pain syndrome; I10 Essential (primary) hypertension; Z96.653 Presence of artificial knee joint, bilateral; J44.9 Chronic obstructive pulmonary disease, unspecified; K21.9 Gastro-esophageal reflux disease without esophagitis; N40.0 Benign prostatic hyperplasia without lower urinary tract symptoms; Z59.0 Homelessness; Z82.49 Family history of ischemic heart disease and other diseases of the circulatory system; Z91.14 Patient's other noncompliance with medication regimen; Z99.3 Dependence on wheelchair; Z56.0 Unemployment, unspecified; Z91.013 Allergy to seafood
CPT/HCPCS: 80307; 87081; 97161; 97165; 97530; 99285; G0480

== ENCOUNTER 2017-02-24 19:32 | Inpatient (IN) | payer MEDICARE, MEDICAID ==
[~2017-02-24] VITALS: Ht 188 cm; Wt 106.4 kg
[~2017-02-24 19:32] MED LIST changes: +FERR-89 PO; -METH10SO PO; +MIRT30 PO; -MIRT30TA2 PO
[2017-02-24] MEDS ORDERED: METH10 PO (19:48)
[2017-02-24 20:20] VITALS: BP 128/72
[2017-02-24] MEDS ORDERED: DENTURE ADHESIVE 68 GM CREAM DT PRN (21:45)
[2017-02-24] MEDS: MIRTAZAPINE 15 MG TABLET PO SCH (21:48)
[2017-02-24] MEDS: DIVALPROEX SODIUM 500 MG ER TABLET PO SCH (21:48)
[2017-02-24] MEDS ORDERED: INFLUENZA VIRUS VACCINE QVS 2017-18 (3YR+)/PF 60 MCG/0.5 ML SYRINGE IM ONE (22:30)
[2017-02-24] MEDS ORDERED: -PHARMACY VACCINE NOTE- MISC ONE (22:30)
[2017-02-25 04:25] VITALS: BP 134/67
[2017-02-25] MEDS ORDERED: METHADONE HCL 10 MG TABLET PO SCH (06:00)
[2017-02-25] MEDS: FERROUS SULFATE 325 MG EC TABLET PO SCH ×2 (06:37→17:10)
[2017-02-25 08:51] VITALS: BP 116/69
[2017-02-25] MEDS: DOCUSATE SODIUM 100 MG CAPSULE PO SCH (09:05)
[2017-02-25] MEDS: BuPROPion HCL XL 150 MG ER TABLET PO SCH (09:05)
[2017-02-25] MEDS: TAMSULOSIN HCL 0.4 MG CAPSULE PO SCH (09:05)
[2017-02-25] MEDS: FUROSEMIDE 40 MG TABLET PO SCH (09:06)
[2017-02-25] MEDS: METHADONE HCL 10 MG TABLET PO SCH (09:06)
[2017-02-25] MEDS: OMEPRAZOLE 20 MG CAPSULE PO SCH (09:06)
[2017-02-25] MEDS: NICOTINE 21 MG/24 HOUR PATCH TD SCH (09:07)
[2017-02-25] MEDS ORDERED: ACETAMINOPHEN 325 MG TABLET PO PRN (12:30)
[2017-02-25] MEDS ORDERED: MAGNESIUM HYDROXIDE SUSPENSION 30 ML UDCUP PO PRN (12:30)
[2017-02-25] MEDS ORDERED: CloNIDine HCL 0.1 MG TABLET PO PRN (12:30)
[2017-02-25] MEDS ORDERED: IBUPROFEN 600 MG TABLET PO PRN (12:30)
[2017-02-25] MEDS ORDERED: ALBUTEROL SULFATE HFA 90 MCG/PUFF 8 GM INHALER IH PRN (12:30)
[2017-02-25] MEDS ORDERED: MAG HYDROX/AL HYDROX/SIMETH ES 30 ML SUSPENSION UDCUP PO PRN (12:30)
[2017-02-25] MEDS ORDERED: LOPERAMIDE HCL 2 MG CAPSULE PO PRN (12:30)
[2017-02-25] MEDS ORDERED: BACITRACIN 28.4 GM OINTMENT TP PRN (12:30)
[2017-02-25] MEDS ORDERED: BENZOCAINE/MENTHOL LOZENGE MM PRN (12:30)
[2017-02-25] MEDS ORDERED: ONDANSETRON HCL 4 MG TABLET PO PRN (12:30)
[2017-02-25] MEDS ORDERED: PETROLATUM,WHITE 71 GM JELLY TP PRN (12:30)
[2017-02-25 16:24] VITALS: BP 132/66
[2017-02-25] MEDS: CARISOPRODOL 350 MG TABLET PO SCH (17:54)
[2017-02-25] MEDS: MIRTAZAPINE 15 MG TABLET PO SCH (20:28)
[2017-02-25] MEDS: DIVALPROEX SODIUM 500 MG ER TABLET PO SCH (20:28)
[2017-02-25] MEDS: ZOLPIDEM TARTRATE 5 MG TABLET PO PRN (21:25)
[2017-02-26 00:52] VITALS: BP 118/70
[2017-02-26] MEDS: LORazepam 1 MG TABLET PO PRN ×2 (00:53→12:38)
[2017-02-26 06:13] LABS: GLUCOMETER DEV NAME(LOC) BV2S; GLUCOSE,POINT OF CARE 108 MG/DL (70-110)
[2017-02-26] MEDS: FERROUS SULFATE 325 MG EC TABLET PO SCH ×2 (06:25→16:02)
[2017-02-26 08:10] LABS: HEMATOCRIT 42.6 % (41-53); HEMOGLOBIN 14.4 g/dL (13.5-17.5); MEAN CORPUSCULAR HEMOGLOBIN 31.3 pg (26.0-34.0); MEAN CORPUSCULAR HGB CONC 33.8 G/dL (31.0-37.0); MEAN CORPUSCULAR VOLUME 92 fL (80-100); PLATELET COUNT (AUTO) 217 K/uL (150-450)
[2017-02-26 08:39] LABS: ANION GAP 8 mmol/L (8-16); CALCIUM, TOTAL 8.7 mg/dL (8.8-10.5); CARBON DIOXIDE 26 mmol/L (22-29); CHLORIDE 104 mmol/L (98-107); CHOLESTEROL 123 mg/dL (131-200); GLOMERULAR FILTR. RATE CALC > 60 mL/min (>60); GLUCOSE,RANDOM 115 mg/dL (70-110); HDL CHOLESTEROL 61 mg/dL (40-60); LDL CHOL (CALC.) 41 mg/dL (0-130); PHOSPHORUS 3.5 mg/dL (2.5-4.9); POTASSIUM 4.4 mmol/L (3.5-5.1); SODIUM SERUM 138 mmol/L (136-145); THYROID STIMULATING HORMONE 0.98 uIU/mL (0.36-3.74); TRIGLYCERIDES 107 mg/dL (15-150); UREA NITROGEN, BLOOD 17 mg/dL (7-18)
[2017-02-26 08:43] VITALS: BP 117/60
[2017-02-26] MEDS: METHADONE HCL 10 MG TABLET PO SCH (08:58)
[2017-02-26] MEDS: TAMSULOSIN HCL 0.4 MG CAPSULE PO SCH (08:59)
[2017-02-26] MEDS: OMEPRAZOLE 20 MG CAPSULE PO SCH (08:59)
[2017-02-26] MEDS: BuPROPion HCL XL 150 MG ER TABLET PO SCH (08:59)
[2017-02-26] MEDS: CARISOPRODOL 350 MG TABLET PO SCH ×2 (08:59→16:02)
[2017-02-26] MEDS: FUROSEMIDE 40 MG TABLET PO SCH (08:59)
[2017-02-26] MEDS: DOCUSATE SODIUM 100 MG CAPSULE PO SCH (08:59)
[2017-02-26] MEDS: NICOTINE 21 MG/24 HOUR PATCH TD SCH (09:00)
[2017-02-26 11:22] LABS: BAND NEUTROPHILS % (MANUAL) 1 % (1-5); EOSINOPHILS % (MANUAL) 1 % (1-6); LYMPHOCYTES % (MANUAL) 31 % (22-44); MONOCYTES % (MANUAL) 7 % (2-9); SEGMENTED NEUTROPHILS % 60 % (40-70)
[2017-02-26 16:18] VITALS: BP 111/67
[2017-02-26] MEDS: DIVALPROEX SODIUM 500 MG ER TABLET PO SCH (20:06)
[2017-02-26] MEDS: MIRTAZAPINE 15 MG TABLET PO SCH (20:06)
[2017-02-26] MEDS: ZOLPIDEM TARTRATE 5 MG TABLET PO PRN (20:32)
[2017-02-27 02:18] VITALS: BP 123/73
[2017-02-27] MEDS: QUEtiapine FUMARATE 100 MG TABLET PO PRN (02:21)
[2017-02-27] MEDS: FERROUS SULFATE 325 MG EC TABLET PO SCH ×2 (06:58→16:33)
[2017-02-27 08:26] VITALS: BP 100/62
[2017-02-27 08:56] LABS: ANION GAP 6 mmol/L (8-16); CALCIUM, TOTAL 8.7 mg/dL (8.8-10.5); CARBON DIOXIDE 28 mmol/L (22-29); CHLORIDE 106 mmol/L (98-107); CREATININE 1.09 mg/dL (0.60-1.30); GLOMERULAR FILTR. RATE CALC > 60 mL/min (>60); GLUCOSE,RANDOM 114 mg/dL (70-110); POTASSIUM 4.2 mmol/L (3.5-5.1); SODIUM SERUM 140 mmol/L (136-145); UREA NITROGEN, BLOOD 19 mg/dL (7-18)
[2017-02-27 09:05] VITALS: BP 112/62
[2017-02-27] MEDS: METHADONE HCL 10 MG TABLET PO SCH (09:05)
[2017-02-27] MEDS: CARISOPRODOL 350 MG TABLET PO SCH ×2 (09:05→16:33)
[2017-02-27] MEDS: OMEPRAZOLE 20 MG CAPSULE PO SCH (09:05)
[2017-02-27] MEDS: FUROSEMIDE 40 MG TABLET PO SCH (09:05)
[2017-02-27] MEDS: DOCUSATE SODIUM 100 MG CAPSULE PO SCH (09:05)
[2017-02-27] MEDS: TAMSULOSIN HCL 0.4 MG CAPSULE PO SCH (09:05)
[2017-02-27] MEDS: BuPROPion HCL XL 150 MG ER TABLET PO SCH (09:05)
[2017-02-27] MEDS: CHOLECALCIFEROL (VIT D3) 1,000 UNITS TABLET PO SCH (09:06)
[2017-02-27] MEDS: NICOTINE 21 MG/24 HOUR PATCH TD SCH (09:07)
[2017-02-27] MEDS: LORazepam 1 MG TABLET PO PRN (14:02)
[2017-02-27 17:20] VITALS: BP 118/73
[2017-02-27] MEDS: MIRTAZAPINE 15 MG TABLET PO SCH (20:31)
[2017-02-27] MEDS: DIVALPROEX SODIUM 500 MG ER TABLET PO SCH (20:31)
[2017-02-27] MEDS: ZOLPIDEM TARTRATE 5 MG TABLET PO PRN (21:34)
[2017-02-28 01:44] VITALS: BP 111/75
[2017-02-28] MEDS: QUEtiapine FUMARATE 100 MG TABLET PO PRN (01:47)
[2017-02-28] MEDS: FERROUS SULFATE 325 MG EC TABLET PO SCH ×2 (06:13→16:09)
[2017-02-28 08:36] VITALS: BP 108/69
[2017-02-28 09:10] VITALS: BP 112/70
[2017-02-28] MEDS: CHOLECALCIFEROL (VIT D3) 1,000 UNITS TABLET PO SCH (09:13)
[2017-02-28] MEDS: CARISOPRODOL 350 MG TABLET PO SCH ×2 (09:13→16:09)
[2017-02-28] MEDS: OMEPRAZOLE 20 MG CAPSULE PO SCH (09:13)
[2017-02-28] MEDS: DOCUSATE SODIUM 100 MG CAPSULE PO SCH (09:13)
[2017-02-28] MEDS: FUROSEMIDE 40 MG TABLET PO SCH (09:14)
[2017-02-28] MEDS: BuPROPion HCL XL 150 MG ER TABLET PO SCH (09:14)
[2017-02-28] MEDS: METHADONE HCL 10 MG TABLET PO SCH (09:14)
[2017-02-28] MEDS: TAMSULOSIN HCL 0.4 MG CAPSULE PO SCH (09:14)
[2017-02-28] MEDS: NICOTINE 21 MG/24 HOUR PATCH TD SCH (09:14)
[2017-02-28] MEDS: LORazepam 1 MG TABLET PO PRN (16:09)
[2017-02-28 16:22] VITALS: BP 114/67
[2017-02-28] MEDS: DIVALPROEX SODIUM 500 MG ER TABLET PO SCH (20:04)
[2017-02-28] MEDS: MIRTAZAPINE 15 MG TABLET PO SCH (20:04)
[2017-02-28] MEDS: ZOLPIDEM TARTRATE 5 MG TABLET PO PRN (21:53)
[2017-03-01 00:16] VITALS: BP 120/79
[2017-03-01] MEDS: QUEtiapine FUMARATE 100 MG TABLET PO PRN (04:18)
[2017-03-01] MEDS: FERROUS SULFATE 325 MG EC TABLET PO SCH ×2 (06:29→16:14)
[2017-03-01 09:05] VITALS: BP 125/68
[2017-03-01] MEDS: DOCUSATE SODIUM 100 MG CAPSULE PO SCH (09:06)
[2017-03-01] MEDS: OMEPRAZOLE 20 MG CAPSULE PO SCH (09:06)
[2017-03-01] MEDS: CARISOPRODOL 350 MG TABLET PO SCH ×2 (09:06→16:14)
[2017-03-01] MEDS: FUROSEMIDE 40 MG TABLET PO SCH (09:06)
[2017-03-01] MEDS: CHOLECALCIFEROL (VIT D3) 1,000 UNITS TABLET PO SCH (09:06)
[2017-03-01] MEDS: BuPROPion HCL XL 150 MG ER TABLET PO SCH (09:06)
[2017-03-01] MEDS: TAMSULOSIN HCL 0.4 MG CAPSULE PO SCH (09:06)
[2017-03-01] MEDS: METHADONE HCL 10 MG TABLET PO SCH (09:07)
[2017-03-01] MEDS: NICOTINE 21 MG/24 HOUR PATCH TD SCH (09:08)
[2017-03-01] MEDS: LORazepam 1 MG TABLET PO PRN (15:44)
[2017-03-01 16:18] VITALS: BP 118/69
[2017-03-01] MEDS: DIVALPROEX SODIUM 500 MG ER TABLET PO SCH (20:12)
[2017-03-01] MEDS: MIRTAZAPINE 15 MG TABLET PO SCH (20:12)
[2017-03-01] MEDS: ZOLPIDEM TARTRATE 5 MG TABLET PO PRN (21:02)
[2017-03-02] MEDS: LORazepam 1 MG TABLET PO PRN ×2 (02:14→12:13)
[2017-03-02 02:17] VITALS: BP 127/69
[2017-03-02] MEDS: FERROUS SULFATE 325 MG EC TABLET PO SCH ×2 (06:40→16:46)
[2017-03-02 08:18] VITALS: BP 112/62
[2017-03-02] MEDS: FUROSEMIDE 40 MG TABLET PO SCH (08:48)
[2017-03-02] MEDS: CHOLECALCIFEROL (VIT D3) 1,000 UNITS TABLET PO SCH (08:48)
[2017-03-02] MEDS: METHADONE HCL 10 MG TABLET PO SCH (08:48)
[2017-03-02] MEDS: BuPROPion HCL XL 150 MG ER TABLET PO SCH (08:48)
[2017-03-02] MEDS: TAMSULOSIN HCL 0.4 MG CAPSULE PO SCH (08:48)
[2017-03-02] MEDS: OMEPRAZOLE 20 MG CAPSULE PO SCH (08:48)
[2017-03-02] MEDS: CARISOPRODOL 350 MG TABLET PO SCH ×2 (08:48→16:46)
[2017-03-02] MEDS: DOCUSATE SODIUM 100 MG CAPSULE PO SCH (08:48)
[2017-03-02] MEDS: NICOTINE 21 MG/24 HOUR PATCH TD SCH (08:49)
[2017-03-02 16:13] VITALS: BP 117/79
[2017-03-02] MEDS: MIRTAZAPINE 15 MG TABLET PO SCH (20:13)
[2017-03-02] MEDS: ZOLPIDEM TARTRATE 5 MG TABLET PO PRN (20:13)
[2017-03-02] MEDS: DIVALPROEX SODIUM 500 MG ER TABLET PO SCH (20:13)
[2017-03-03 00:01] VITALS: BP 117/76
[2017-03-03] MEDS: LORazepam 1 MG TABLET PO PRN ×2 (00:06→14:35)
[2017-03-03] MEDS: QUEtiapine FUMARATE 100 MG TABLET PO PRN (02:10)
[2017-03-03] MEDS: FERROUS SULFATE 325 MG EC TABLET PO SCH ×2 (06:36→16:38)
[2017-03-03 08:18] VITALS: BP 122/68
[2017-03-03] MEDS: BuPROPion HCL XL 150 MG ER TABLET PO SCH (09:01)
[2017-03-03] MEDS: CARISOPRODOL 350 MG TABLET PO SCH ×2 (09:01→16:38)
[2017-03-03] MEDS: CHOLECALCIFEROL (VIT D3) 1,000 UNITS TABLET PO SCH (09:01)
[2017-03-03] MEDS: DOCUSATE SODIUM 100 MG CAPSULE PO SCH (09:01)
[2017-03-03] MEDS: TAMSULOSIN HCL 0.4 MG CAPSULE PO SCH (09:01)
[2017-03-03] MEDS: FUROSEMIDE 40 MG TABLET PO SCH (09:01)
[2017-03-03] MEDS: OMEPRAZOLE 20 MG CAPSULE PO SCH (09:01)
[2017-03-03] MEDS: METHADONE HCL 10 MG TABLET PO SCH (09:02)
[2017-03-03] MEDS: NICOTINE 21 MG/24 HOUR PATCH TD SCH (09:03)
[2017-03-03 16:07] VITALS: BP 119/66
[2017-03-03] MEDS: ZOLPIDEM TARTRATE 5 MG TABLET PO PRN (20:21)
[2017-03-03] MEDS: DIVALPROEX SODIUM 500 MG ER TABLET PO SCH (20:21)
[2017-03-03] MEDS: MIRTAZAPINE 15 MG TABLET PO SCH (20:21)
[2017-03-04 00:26] VITALS: BP 117/70
[2017-03-04] MEDS: LORazepam 1 MG TABLET PO PRN ×2 (00:39→13:22)
[2017-03-04] MEDS: FERROUS SULFATE 325 MG EC TABLET PO SCH ×2 (06:48→16:39)
[2017-03-04 08:18] VITALS: BP 99/60
[2017-03-04] MEDS: DOCUSATE SODIUM 100 MG CAPSULE PO SCH (08:46)
[2017-03-04] MEDS: METHADONE HCL 10 MG TABLET PO SCH (08:48)
[2017-03-04] MEDS: FUROSEMIDE 40 MG TABLET PO SCH (08:49)
[2017-03-04] MEDS: TAMSULOSIN HCL 0.4 MG CAPSULE PO SCH (08:49)
[2017-03-04] MEDS: OMEPRAZOLE 20 MG CAPSULE PO SCH (08:49)
[2017-03-04] MEDS: CARISOPRODOL 350 MG TABLET PO SCH ×2 (08:50→16:39)
[2017-03-04] MEDS: CHOLECALCIFEROL (VIT D3) 1,000 UNITS TABLET PO SCH (08:50)
[2017-03-04] MEDS: BuPROPion HCL XL 150 MG ER TABLET PO SCH (08:51)
[2017-03-04] MEDS: NICOTINE 21 MG/24 HOUR PATCH TD SCH (08:52)
[2017-03-04 09:30] VITALS: BP 120/72
[2017-03-04 16:05] VITALS: BP 111/63
[2017-03-04] MEDS: DIVALPROEX SODIUM 500 MG ER TABLET PO SCH (20:33)
[2017-03-04] MEDS: MIRTAZAPINE 15 MG TABLET PO SCH (20:33)
[2017-03-04] MEDS: ZOLPIDEM TARTRATE 5 MG TABLET PO PRN (21:16)
[2017-03-05 02:25] VITALS: BP 117/74
[2017-03-05] MEDS: LORazepam 1 MG TABLET PO PRN ×2 (02:28→14:49)
[2017-03-05] MEDS: FERROUS SULFATE 325 MG EC TABLET PO SCH ×2 (06:34→16:53)
[2017-03-05 08:57] VITALS: BP 92/42
[2017-03-05 09:20] VITALS: BP 119/70
[2017-03-05] MEDS: METHADONE HCL 10 MG TABLET PO SCH (09:21)
[2017-03-05] MEDS: CHOLECALCIFEROL (VIT D3) 1,000 UNITS TABLET PO SCH (09:21)
[2017-03-05] MEDS: CARISOPRODOL 350 MG TABLET PO SCH ×2 (09:21→16:53)
[2017-03-05] MEDS: TAMSULOSIN HCL 0.4 MG CAPSULE PO SCH (09:21)
[2017-03-05] MEDS: DOCUSATE SODIUM 100 MG CAPSULE PO SCH (09:23)
[2017-03-05] MEDS: FUROSEMIDE 40 MG TABLET PO SCH (09:23)
[2017-03-05] MEDS: BuPROPion HCL XL 150 MG ER TABLET PO SCH (09:23)
[2017-03-05] MEDS: OMEPRAZOLE 20 MG CAPSULE PO SCH (09:23)
[2017-03-05] MEDS: NICOTINE 21 MG/24 HOUR PATCH TD SCH (09:26)
[2017-03-05 16:04] VITALS: BP 119/76
[2017-03-05] MEDS: MIRTAZAPINE 15 MG TABLET PO SCH (20:02)
[2017-03-05] MEDS: DIVALPROEX SODIUM 500 MG ER TABLET PO SCH (20:03)
[2017-03-05] MEDS: ZOLPIDEM TARTRATE 5 MG TABLET PO PRN (21:04)
[2017-03-06 00:10] VITALS: BP 113/70
[2017-03-06] MEDS: LORazepam 1 MG TABLET PO PRN ×2 (00:18→11:58)
[2017-03-06] MEDS: QUEtiapine FUMARATE 100 MG TABLET PO PRN (02:44)
[2017-03-06] MEDS: FERROUS SULFATE 325 MG EC TABLET PO SCH ×2 (06:07→16:33)
[2017-03-06 08:00] VITALS: BP 104/63
[2017-03-06 08:50] VITALS: BP 114/70
[2017-03-06] MEDS: FUROSEMIDE 40 MG TABLET PO SCH (08:50)
[2017-03-06] MEDS: DOCUSATE SODIUM 100 MG CAPSULE PO SCH (08:51)
[2017-03-06] MEDS: CHOLECALCIFEROL (VIT D3) 1,000 UNITS TABLET PO SCH (08:51)
[2017-03-06] MEDS: METHADONE HCL 10 MG TABLET PO SCH (08:51)
[2017-03-06] MEDS: OMEPRAZOLE 20 MG CAPSULE PO SCH (08:51)
[2017-03-06] MEDS: TAMSULOSIN HCL 0.4 MG CAPSULE PO SCH (08:51)
[2017-03-06] MEDS: CARISOPRODOL 350 MG TABLET PO SCH ×2 (08:51→16:33)
[2017-03-06] MEDS: BuPROPion HCL XL 150 MG ER TABLET PO SCH (08:51)
[2017-03-06] MEDS: NICOTINE 21 MG/24 HOUR PATCH TD SCH (08:52)
[2017-03-06 16:18] VITALS: BP 117/72
[2017-03-06] MEDS: DIVALPROEX SODIUM 500 MG ER TABLET PO SCH (20:24)
[2017-03-06] MEDS: MIRTAZAPINE 15 MG TABLET PO SCH (20:24)
[2017-03-06] MEDS: ZOLPIDEM TARTRATE 5 MG TABLET PO PRN (21:13)
[2017-03-07 00:16] VITALS: BP 117/63
[2017-03-07] MEDS: QUEtiapine FUMARATE 100 MG TABLET PO PRN (02:29)
[2017-03-07] MEDS: FERROUS SULFATE 325 MG EC TABLET PO SCH ×2 (06:23→16:30)
[2017-03-07 08:30] VITALS: BP 120/69
[2017-03-07] MEDS: CHOLECALCIFEROL (VIT D3) 1,000 UNITS TABLET PO SCH (08:59)
[2017-03-07] MEDS: CARISOPRODOL 350 MG TABLET PO SCH ×3 (08:59→16:30)
[2017-03-07] MEDS: DOCUSATE SODIUM 100 MG CAPSULE PO SCH (08:59)
[2017-03-07] MEDS: TAMSULOSIN HCL 0.4 MG CAPSULE PO SCH (09:00)
[2017-03-07] MEDS: BuPROPion HCL XL 150 MG ER TABLET PO SCH (09:00)
[2017-03-07] MEDS: METHADONE HCL 10 MG TABLET PO SCH (09:00)
[2017-03-07] MEDS: FUROSEMIDE 40 MG TABLET PO SCH (09:00)
[2017-03-07] MEDS: OMEPRAZOLE 20 MG CAPSULE PO SCH (09:00)
[2017-03-07] MEDS: NICOTINE 21 MG/24 HOUR PATCH TD SCH (09:01)
[2017-03-07] MEDS: LORazepam 1 MG TABLET PO PRN ×2 (11:07→18:42)
[2017-03-07 16:03] VITALS: BP 122/78
[2017-03-07] MEDS: DIVALPROEX SODIUM 500 MG ER TABLET PO SCH (20:32)
[2017-03-07] MEDS: MIRTAZAPINE 15 MG TABLET PO SCH (20:32)
[2017-03-07] MEDS: ZOLPIDEM TARTRATE 5 MG TABLET PO PRN (21:32)
[2017-03-08] MEDS: QUEtiapine FUMARATE 100 MG TABLET PO PRN (00:40)
[2017-03-08 00:44] VITALS: BP 125/77
[2017-03-08] MEDS: LORazepam 1 MG TABLET PO PRN ×2 (04:14→19:14)
[2017-03-08] MEDS: FERROUS SULFATE 325 MG EC TABLET PO SCH ×2 (06:57→16:07)
[2017-03-08 08:11] VITALS: BP 102/60
[2017-03-08 08:55] VITALS: BP 110/79
[2017-03-08] MEDS: FUROSEMIDE 40 MG TABLET PO SCH (08:57)
[2017-03-08] MEDS: DOCUSATE SODIUM 100 MG CAPSULE PO SCH (08:57)
[2017-03-08] MEDS: CHOLECALCIFEROL (VIT D3) 1,000 UNITS TABLET PO SCH (08:57)
[2017-03-08] MEDS: CARISOPRODOL 350 MG TABLET PO SCH ×3 (08:57→16:59)
[2017-03-08] MEDS: TAMSULOSIN HCL 0.4 MG CAPSULE PO SCH (08:57)
[2017-03-08] MEDS: BuPROPion HCL XL 150 MG ER TABLET PO SCH (08:57)
[2017-03-08] MEDS: OMEPRAZOLE 20 MG CAPSULE PO SCH (08:57)
[2017-03-08] MEDS: METHADONE HCL 10 MG TABLET PO SCH (08:58)
[2017-03-08] MEDS: NICOTINE 21 MG/24 HOUR PATCH TD SCH (08:58)
[2017-03-08 16:00] VITALS: BP 123/73
[2017-03-08] MEDS: DIVALPROEX SODIUM 500 MG ER TABLET PO SCH (20:12)
[2017-03-08] MEDS: MIRTAZAPINE 15 MG TABLET PO SCH (20:12)
[2017-03-08] MEDS: ZOLPIDEM TARTRATE 5 MG TABLET PO PRN (20:13)
[2017-03-09 00:22] VITALS: BP 121/79
[2017-03-09] MEDS: LORazepam 1 MG TABLET PO PRN ×3 (00:25→19:46)
[2017-03-09] MEDS: FERROUS SULFATE 325 MG EC TABLET PO SCH ×2 (07:03→16:46)
[2017-03-09 08:13] LABS: BASOPHILS % (AUTO) 0.6 % (0.0-2.0); HEMATOCRIT 40.9 % (41-53); HEMOGLOBIN 13.6 g/dL (13.5-17.5); LYMPHOCYTES # (AUTO) 3.7 K/uL (1.0-4.8); LYMPHOCYTES % (AUTO) 48.5 % (22.0-44.0); MEAN CORPUSCULAR HGB CONC 33.3 G/dL (31.0-37.0); MEAN CORPUSCULAR VOLUME 93 fL (80-100); MONOCYTES % (AUTO) 13.1 % (2.0-9.0); NEUTROPHILS # (AUTO) 2.7 K/uL (1.8-7.7); NEUTROPHILS % (AUTO) 34.8 % (40.0-70.0); PLATELET COUNT (AUTO) 228 K/uL (150-450); RED BLOOD CELL COUNT(AUTO) 4.38 MIL/uL (4.50-5.90); RED CELL DISTRIBUTION WIDTH 15.5 % (11.5-14.5)
[2017-03-09 08:28] VITALS: BP 106/62
[2017-03-09 08:30] VITALS: BP 117/74
[2017-03-09] MEDS: TAMSULOSIN HCL 0.4 MG CAPSULE PO SCH (08:30)
[2017-03-09] MEDS: FUROSEMIDE 40 MG TABLET PO SCH (08:30)
[2017-03-09] MEDS: CARISOPRODOL 350 MG TABLET PO SCH ×3 (08:30→16:46)
[2017-03-09] MEDS: OMEPRAZOLE 20 MG CAPSULE PO SCH (08:30)
[2017-03-09] MEDS: DOCUSATE SODIUM 100 MG CAPSULE PO SCH (08:30)
[2017-03-09] MEDS: CHOLECALCIFEROL (VIT D3) 1,000 UNITS TABLET PO SCH (08:30)
[2017-03-09] MEDS: BuPROPion HCL XL 150 MG ER TABLET PO SCH (08:30)
[2017-03-09] MEDS: METHADONE HCL 10 MG TABLET PO SCH (08:31)
[2017-03-09] MEDS: NICOTINE 21 MG/24 HOUR PATCH TD SCH (08:31)
[2017-03-09 08:36] LABS: ANION GAP 7 mmol/L (8-16); CALCIUM, TOTAL 8.6 mg/dL (8.8-10.5); CARBON DIOXIDE 27 mmol/L (22-29); CHLORIDE 105 mmol/L (98-107); CREATININE 0.89 mg/dL (0.60-1.30); GLOMERULAR FILTR. RATE CALC > 60 mL/min (>60); GLUCOSE,RANDOM 98 mg/dL (70-110); PHOSPHORUS 4.2 mg/dL (2.5-4.9); POTASSIUM 4.9 mmol/L (3.5-5.1); SODIUM SERUM 139 mmol/L (136-145); UREA NITROGEN, BLOOD 21 mg/dL (7-18)
[2017-03-09] MEDS: QUEtiapine FUMARATE 100 MG TABLET PO PRN (15:30)
[2017-03-09 16:05] VITALS: BP 119/65
[2017-03-09] MEDS: MIRTAZAPINE 15 MG TABLET PO SCH (20:14)
[2017-03-09] MEDS: DIVALPROEX SODIUM 500 MG ER TABLET PO SCH (20:14)
[2017-03-09] MEDS: ZOLPIDEM TARTRATE 5 MG TABLET PO PRN (21:09)
[2017-03-10] MEDS: QUEtiapine FUMARATE 100 MG TABLET PO PRN ×2 (00:16→10:23)
[2017-03-10 00:52] VITALS: BP 117/68
[2017-03-10] MEDS: LORazepam 1 MG TABLET PO PRN (06:07)
[2017-03-10] MEDS: FERROUS SULFATE 325 MG EC TABLET PO SCH ×2 (06:52→16:34)
[2017-03-10 08:30] VITALS: BP 104/60
[2017-03-10 08:58] VITALS: BP 116/73
[2017-03-10] MEDS: BuPROPion HCL XL 150 MG ER TABLET PO SCH (08:59)
[2017-03-10] MEDS: FUROSEMIDE 40 MG TABLET PO SCH (08:59)
[2017-03-10] MEDS: CHOLECALCIFEROL (VIT D3) 1,000 UNITS TABLET PO SCH (08:59)
[2017-03-10] MEDS: DOCUSATE SODIUM 100 MG CAPSULE PO SCH (08:59)
[2017-03-10] MEDS: TAMSULOSIN HCL 0.4 MG CAPSULE PO SCH (08:59)
[2017-03-10] MEDS: OMEPRAZOLE 20 MG CAPSULE PO SCH (08:59)
[2017-03-10] MEDS: METHADONE HCL 10 MG TABLET PO SCH (09:00)
[2017-03-10] MEDS: CARISOPRODOL 350 MG TABLET PO SCH ×3 (09:00→16:34)
[2017-03-10] MEDS: NICOTINE 21 MG/24 HOUR PATCH TD SCH (09:00)
[2017-03-10 16:19] VITALS: BP 117/70
[2017-03-10] MEDS: DIVALPROEX SODIUM 500 MG ER TABLET PO SCH (20:31)
[2017-03-10] MEDS: MIRTAZAPINE 15 MG TABLET PO SCH (20:31)
[2017-03-10] MEDS: ZOLPIDEM TARTRATE 5 MG TABLET PO PRN (21:01)
[2017-03-11 00:24] VITALS: BP 122/77
[2017-03-11] MEDS: LORazepam 1 MG TABLET PO PRN ×2 (00:26→10:58)
[2017-03-11] MEDS: QUEtiapine FUMARATE 100 MG TABLET PO PRN ×2 (03:51→15:40)
[2017-03-11] MEDS: FERROUS SULFATE 325 MG EC TABLET PO SCH ×2 (06:25→17:16)
[2017-03-11] MEDS: CHOLECALCIFEROL (VIT D3) 1,000 UNITS TABLET PO SCH (08:34)
[2017-03-11] MEDS: CARISOPRODOL 350 MG TABLET PO SCH ×3 (08:34→17:16)
[2017-03-11] MEDS: BuPROPion HCL XL 150 MG ER TABLET PO SCH (08:34)
[2017-03-11] MEDS: FUROSEMIDE 40 MG TABLET PO SCH (08:34)
[2017-03-11] MEDS: TAMSULOSIN HCL 0.4 MG CAPSULE PO SCH (08:34)
[2017-03-11] MEDS: OMEPRAZOLE 20 MG CAPSULE PO SCH (08:34)
[2017-03-11] MEDS: DOCUSATE SODIUM 100 MG CAPSULE PO SCH (08:34)
[2017-03-11 08:36] VITALS: BP 112/71
[2017-03-11] MEDS: METHADONE HCL 10 MG TABLET PO SCH (08:37)
[2017-03-11] MEDS: NICOTINE 21 MG/24 HOUR PATCH TD SCH (08:37)
[2017-03-11 16:00] VITALS: BP 109/70
[2017-03-11] MEDS: MIRTAZAPINE 15 MG TABLET PO SCH (20:30)
[2017-03-11] MEDS: DIVALPROEX SODIUM 500 MG ER TABLET PO SCH (20:30)
[2017-03-11] MEDS: ZOLPIDEM TARTRATE 5 MG TABLET PO PRN (21:33)
[2017-03-12 00:43] VITALS: BP 118/76
[2017-03-12] MEDS: LORazepam 1 MG TABLET PO PRN ×3 (00:45→11:01)
[2017-03-12 05:05] VITALS: BP 128/74
[2017-03-12] MEDS: FERROUS SULFATE 325 MG EC TABLET PO SCH ×2 (06:32→16:31)
[2017-03-12] MEDS: CARISOPRODOL 350 MG TABLET PO SCH ×3 (08:37→16:31)
[2017-03-12] MEDS: OMEPRAZOLE 20 MG CAPSULE PO SCH (08:37)
[2017-03-12] MEDS: BuPROPion HCL XL 150 MG ER TABLET PO SCH (08:37)
[2017-03-12] MEDS: DOCUSATE SODIUM 100 MG CAPSULE PO SCH (08:37)
[2017-03-12] MEDS: CHOLECALCIFEROL (VIT D3) 1,000 UNITS TABLET PO SCH (08:37)
[2017-03-12] MEDS: FUROSEMIDE 40 MG TABLET PO SCH (08:37)
[2017-03-12] MEDS: TAMSULOSIN HCL 0.4 MG CAPSULE PO SCH (08:37)
[2017-03-12] MEDS: METHADONE HCL 10 MG TABLET PO SCH (08:38)
[2017-03-12] MEDS: NICOTINE 21 MG/24 HOUR PATCH TD SCH (08:38)
[2017-03-12 08:39] VITALS: BP 122/78
[2017-03-12 16:35] VITALS: BP 122/74
[2017-03-12] MEDS: DIVALPROEX SODIUM 500 MG ER TABLET PO SCH (20:34)
[2017-03-12] MEDS: MIRTAZAPINE 15 MG TABLET PO SCH (20:34)
[2017-03-12] MEDS: ZOLPIDEM TARTRATE 5 MG TABLET PO PRN (21:03)
[2017-03-13] MEDS: QUEtiapine FUMARATE 100 MG TABLET PO PRN ×3 (01:13→16:18)
[2017-03-13] MEDS: LORazepam 1 MG TABLET PO PRN ×3 (01:13→14:30)
[2017-03-13 01:19] VITALS: BP 120/81
[2017-03-13] MEDS: FERROUS SULFATE 325 MG EC TABLET PO SCH ×2 (07:04→17:05)
[2017-03-13 08:40] VITALS: BP 121/60
[2017-03-13] MEDS: DOCUSATE SODIUM 100 MG CAPSULE PO SCH (08:42)
[2017-03-13] MEDS: METHADONE HCL 10 MG TABLET PO SCH (08:42)
[2017-03-13] MEDS: TAMSULOSIN HCL 0.4 MG CAPSULE PO SCH (08:42)
[2017-03-13] MEDS: OMEPRAZOLE 20 MG CAPSULE PO SCH (08:42)
[2017-03-13] MEDS: CHOLECALCIFEROL (VIT D3) 1,000 UNITS TABLET PO SCH (08:42)
[2017-03-13] MEDS: FUROSEMIDE 40 MG TABLET PO SCH (08:42)
[2017-03-13] MEDS: BuPROPion HCL XL 150 MG ER TABLET PO SCH (08:42)
[2017-03-13] MEDS: CARISOPRODOL 350 MG TABLET PO SCH ×3 (08:43→17:05)
[2017-03-13] MEDS: NICOTINE 21 MG/24 HOUR PATCH TD SCH (08:43)
[2017-03-13 16:23] VITALS: BP 110/64
[2017-03-13] MEDS: MIRTAZAPINE 15 MG TABLET PO SCH (20:32)
[2017-03-13] MEDS: DIVALPROEX SODIUM 500 MG ER TABLET PO SCH (20:32)
[2017-03-13] MEDS: ZOLPIDEM TARTRATE 5 MG TABLET PO PRN (21:08)
[2017-03-14] MEDS: LORazepam 1 MG TABLET PO PRN ×5 (00:05→23:59)
[2017-03-14] MEDS: QUEtiapine FUMARATE 100 MG TABLET PO PRN ×3 (00:05→23:59)
[2017-03-14 01:03] VITALS: BP 120/81
[2017-03-14] MEDS: FERROUS SULFATE 325 MG EC TABLET PO SCH ×2 (07:11→17:04)
[2017-03-14 08:21] VITALS: BP 100/66
[2017-03-14 08:35] VITALS: BP 117/68
[2017-03-14] MEDS: BuPROPion HCL XL 150 MG ER TABLET PO SCH (08:35)
[2017-03-14] MEDS: OMEPRAZOLE 20 MG CAPSULE PO SCH (08:35)
[2017-03-14] MEDS: CHOLECALCIFEROL (VIT D3) 1,000 UNITS TABLET PO SCH (08:35)
[2017-03-14] MEDS: FUROSEMIDE 40 MG TABLET PO SCH (08:35)
[2017-03-14] MEDS: METHADONE HCL 10 MG TABLET PO SCH (08:35)
[2017-03-14] MEDS: TAMSULOSIN HCL 0.4 MG CAPSULE PO SCH (08:35)
[2017-03-14] MEDS: CARISOPRODOL 350 MG TABLET PO SCH ×3 (08:35→17:04)
[2017-03-14] MEDS: DOCUSATE SODIUM 100 MG CAPSULE PO SCH (08:35)
[2017-03-14] MEDS: NICOTINE 21 MG/24 HOUR PATCH TD SCH (08:36)
[2017-03-14 16:05] VITALS: BP 119/65
[2017-03-14] MEDS: MIRTAZAPINE 15 MG TABLET PO SCH (20:14)
[2017-03-14] MEDS: DIVALPROEX SODIUM 500 MG ER TABLET PO SCH (20:14)
[2017-03-14] MEDS: ZOLPIDEM TARTRATE 5 MG TABLET PO PRN (20:53)
[2017-03-15 00:01] VITALS: BP 109/71
[2017-03-15] MEDS: LORazepam 1 MG TABLET PO PRN (05:48)
[2017-03-15] MEDS: QUEtiapine FUMARATE 100 MG TABLET PO PRN (05:49)
[2017-03-15 05:50] VITALS: BP 110/72
[2017-03-15] MEDS: FERROUS SULFATE 325 MG EC TABLET PO SCH ×2 (06:28→16:33)
[2017-03-15] MEDS: FUROSEMIDE 40 MG TABLET PO SCH (08:06)
[2017-03-15] MEDS: OMEPRAZOLE 20 MG CAPSULE PO SCH (08:06)
[2017-03-15] MEDS: DOCUSATE SODIUM 100 MG CAPSULE PO SCH (08:06)
[2017-03-15] MEDS: CHOLECALCIFEROL (VIT D3) 1,000 UNITS TABLET PO SCH (08:06)
[2017-03-15] MEDS: TAMSULOSIN HCL 0.4 MG CAPSULE PO SCH (08:07)
[2017-03-15] MEDS: METHADONE HCL 10 MG TABLET PO SCH (08:07)
[2017-03-15] MEDS: CARISOPRODOL 350 MG TABLET PO SCH ×3 (08:07→16:33)
[2017-03-15] MEDS: BuPROPion HCL XL 150 MG ER TABLET PO SCH (08:07)
[2017-03-15] MEDS: NICOTINE 21 MG/24 HOUR PATCH TD SCH (08:08)
[2017-03-15 08:24] VITALS: BP 116/60
[2017-03-15 16:24] VITALS: BP 108/60
[2017-03-15] MEDS: DIVALPROEX SODIUM 500 MG ER TABLET PO SCH (20:32)
[2017-03-15] MEDS: MIRTAZAPINE 15 MG TABLET PO SCH (20:32)
[2017-03-15] MEDS: ZOLPIDEM TARTRATE 5 MG TABLET PO PRN (21:04)
[2017-03-16] MEDS: LORazepam 1 MG TABLET PO PRN ×3 (00:05→10:44)
[2017-03-16] MEDS: QUEtiapine FUMARATE 100 MG TABLET PO PRN ×2 (00:05→05:47)
[2017-03-16 00:10] VITALS: BP 116/75
[2017-03-16] MEDS: FERROUS SULFATE 325 MG EC TABLET PO SCH ×2 (06:56→16:30)
[2017-03-16 08:04] VITALS: BP 107/69
[2017-03-16 08:07] VITALS: BP 110/67
[2017-03-16] MEDS: FUROSEMIDE 40 MG TABLET PO SCH (08:07)
[2017-03-16] MEDS: OMEPRAZOLE 20 MG CAPSULE PO SCH (08:07)
[2017-03-16] MEDS: CARISOPRODOL 350 MG TABLET PO SCH ×3 (08:07→16:31)
[2017-03-16] MEDS: TAMSULOSIN HCL 0.4 MG CAPSULE PO SCH (08:08)
[2017-03-16] MEDS: METHADONE HCL 10 MG TABLET PO SCH (08:08)
[2017-03-16] MEDS: BuPROPion HCL XL 150 MG ER TABLET PO SCH (08:08)
[2017-03-16] MEDS: DOCUSATE SODIUM 100 MG CAPSULE PO SCH (08:08)
[2017-03-16] MEDS: CHOLECALCIFEROL (VIT D3) 1,000 UNITS TABLET PO SCH (08:08)
[2017-03-16] MEDS: NICOTINE 21 MG/24 HOUR PATCH TD SCH (08:09)
[2017-03-16 16:03] VITALS: BP 118/93
[2017-03-16] MEDS: MIRTAZAPINE 15 MG TABLET PO SCH (20:30)
[2017-03-16] MEDS: DIVALPROEX SODIUM 500 MG ER TABLET PO SCH (20:30)
[2017-03-16] MEDS: ZOLPIDEM TARTRATE 5 MG TABLET PO PRN (21:06)
[2017-03-17 00:15] VITALS: BP 114/68
[2017-03-17] MEDS: QUEtiapine FUMARATE 100 MG TABLET PO PRN (00:16)
[2017-03-17] MEDS: LORazepam 1 MG TABLET PO PRN ×2 (00:17→14:26)
[2017-03-17] MEDS: FERROUS SULFATE 325 MG EC TABLET PO SCH ×2 (06:52→16:36)
[2017-03-17] MEDS: CARISOPRODOL 350 MG TABLET PO SCH ×3 (08:03→16:36)
[2017-03-17] MEDS: OMEPRAZOLE 20 MG CAPSULE PO SCH (08:04)
[2017-03-17] MEDS: FUROSEMIDE 40 MG TABLET PO SCH (08:04)
[2017-03-17] MEDS: CHOLECALCIFEROL (VIT D3) 1,000 UNITS TABLET PO SCH (08:04)
[2017-03-17] MEDS: TAMSULOSIN HCL 0.4 MG CAPSULE PO SCH (08:04)
[2017-03-17] MEDS: DOCUSATE SODIUM 100 MG CAPSULE PO SCH (08:04)
[2017-03-17] MEDS: BuPROPion HCL XL 150 MG ER TABLET PO SCH (08:04)
[2017-03-17] MEDS: METHADONE HCL 10 MG TABLET PO SCH (08:06)
[2017-03-17] MEDS: NICOTINE 21 MG/24 HOUR PATCH TD SCH (08:09)
[2017-03-17 08:33] VITALS: BP 121/80
[2017-03-17 16:13] VITALS: BP 116/86
[2017-03-17] MEDS: DIVALPROEX SODIUM 500 MG ER TABLET PO SCH (20:40)
[2017-03-17] MEDS: MIRTAZAPINE 15 MG TABLET PO SCH (20:40)
[2017-03-17] MEDS: ZOLPIDEM TARTRATE 5 MG TABLET PO PRN (21:15)
[2017-03-18 00:42] VITALS: BP 125/83
[2017-03-18] MEDS: LORazepam 1 MG TABLET PO PRN ×2 (00:50→15:51)
[2017-03-18] MEDS: QUEtiapine FUMARATE 100 MG TABLET PO PRN (00:50)
[2017-03-18] MEDS: FERROUS SULFATE 325 MG EC TABLET PO SCH ×2 (07:00→17:01)
[2017-03-18] MEDS: DOCUSATE SODIUM 100 MG CAPSULE PO SCH (08:10)
[2017-03-18] MEDS: CHOLECALCIFEROL (VIT D3) 1,000 UNITS TABLET PO SCH (08:11)
[2017-03-18] MEDS: TAMSULOSIN HCL 0.4 MG CAPSULE PO SCH (08:11)
[2017-03-18] MEDS: FUROSEMIDE 40 MG TABLET PO SCH (08:11)
[2017-03-18] MEDS: CARISOPRODOL 350 MG TABLET PO SCH ×3 (08:11→17:01)
[2017-03-18] MEDS: OMEPRAZOLE 20 MG CAPSULE PO SCH (08:11)
[2017-03-18] MEDS: BuPROPion HCL XL 150 MG ER TABLET PO SCH (08:11)
[2017-03-18] MEDS: METHADONE HCL 10 MG TABLET PO SCH (08:13)
[2017-03-18] MEDS: NICOTINE 21 MG/24 HOUR PATCH TD SCH (08:13)
[2017-03-18 08:38] VITALS: BP 111/72
[2017-03-18 16:10] VITALS: BP 140/82
[2017-03-18] MEDS: MIRTAZAPINE 15 MG TABLET PO SCH (20:27)
[2017-03-18] MEDS: DIVALPROEX SODIUM 500 MG ER TABLET PO SCH (20:27)
[2017-03-18] MEDS: ZOLPIDEM TARTRATE 5 MG TABLET PO PRN (21:10)
[2017-03-19 00:01] VITALS: BP 121/72
[2017-03-19] MEDS: LORazepam 1 MG TABLET PO PRN ×2 (00:08→19:18)
[2017-03-19] MEDS: QUEtiapine FUMARATE 100 MG TABLET PO PRN (00:08)
[2017-03-19] MEDS: FERROUS SULFATE 325 MG EC TABLET PO SCH ×2 (06:41→16:31)
[2017-03-19] MEDS: TAMSULOSIN HCL 0.4 MG CAPSULE PO SCH (08:06)
[2017-03-19] MEDS: OMEPRAZOLE 20 MG CAPSULE PO SCH (08:07)
[2017-03-19] MEDS: CARISOPRODOL 350 MG TABLET PO SCH ×3 (08:07→16:31)
[2017-03-19] MEDS: NICOTINE 21 MG/24 HOUR PATCH TD SCH (08:07)
[2017-03-19] MEDS: DOCUSATE SODIUM 100 MG CAPSULE PO SCH (08:07)
[2017-03-19] MEDS: CHOLECALCIFEROL (VIT D3) 1,000 UNITS TABLET PO SCH (08:07)
[2017-03-19] MEDS: BuPROPion HCL XL 150 MG ER TABLET PO SCH (08:07)
[2017-03-19] MEDS: FUROSEMIDE 40 MG TABLET PO SCH (08:07)
[2017-03-19] MEDS: METHADONE HCL 10 MG TABLET PO SCH (08:08)
[2017-03-19 08:29] VITALS: BP 123/77
[2017-03-19 16:02] VITALS: BP 119/76
[2017-03-19] MEDS: MIRTAZAPINE 15 MG TABLET PO SCH (20:33)
[2017-03-19] MEDS: DIVALPROEX SODIUM 500 MG ER TABLET PO SCH (20:33)
[2017-03-19] MEDS: ZOLPIDEM TARTRATE 5 MG TABLET PO PRN (20:54)
[2017-03-20 00:01] VITALS: BP 119/74
[2017-03-20] MEDS: LORazepam 1 MG TABLET PO PRN ×2 (00:08→05:22)
[2017-03-20] MEDS: QUEtiapine FUMARATE 100 MG TABLET PO PRN (00:08)
[2017-03-20] MEDS: FERROUS SULFATE 325 MG EC TABLET PO SCH ×2 (06:51→16:03)
[2017-03-20 08:36] VITALS: BP 117/81
[2017-03-20] MEDS: FUROSEMIDE 40 MG TABLET PO SCH (08:41)
[2017-03-20] MEDS: NICOTINE 21 MG/24 HOUR PATCH TD SCH (08:41)
[2017-03-20] MEDS: OMEPRAZOLE 20 MG CAPSULE PO SCH (08:41)
[2017-03-20] MEDS: DOCUSATE SODIUM 100 MG CAPSULE PO SCH (08:42)
[2017-03-20] MEDS: CARISOPRODOL 350 MG TABLET PO SCH ×3 (08:42→16:03)
[2017-03-20] MEDS: BuPROPion HCL XL 150 MG ER TABLET PO SCH (08:42)
[2017-03-20] MEDS: TAMSULOSIN HCL 0.4 MG CAPSULE PO SCH (08:43)
[2017-03-20] MEDS: CHOLECALCIFEROL (VIT D3) 1,000 UNITS TABLET PO SCH (08:43)
[2017-03-20] MEDS: METHADONE HCL 10 MG TABLET PO SCH (08:43)
[2017-03-20 16:00] VITALS: BP 117/83
[2017-03-20] MEDS ORDERED: OMEP20 PO (16:19)
[2017-03-20] MEDS ORDERED: MIRT15 PO (16:19)
[2017-03-20] MEDS ORDERED: DSS100 PO (16:19)
[2017-03-20] MEDS ORDERED: BUPR-93 PO (16:19)
[2017-03-20] MEDS ORDERED: NICO-704 TD (16:19)
[2017-03-20] MEDS ORDERED: TAMS0.4C32 PO (16:19)
[2017-03-20] MEDS ORDERED: FURO40 PO (16:19)
[2017-03-20] MEDS ORDERED: FERR-89 PO (16:19)
[2017-03-20] MEDS ORDERED: CARI350 PO (16:19)
[2017-03-20] MEDS ORDERED: DIVA500T52 PO (16:19)
[2017-03-20] MEDS ORDERED: METH10SO PO (16:19)
[2017-03-20] MEDS ORDERED: VITAD1000 PO (16:19)
== END 2017-03-20 16:30 | DRG 885 ==
LOC: B2X 20:13 → EDSTATUS 20:50
PROVIDERS: ADMIT Psychiatry & Neurology Psychiatry; ATTEND Psychiatry & Neurology Psychiatry
DX: F33.2 Major depressive disorder, recurrent severe without psychotic features (principal); R45.851 Suicidal ideations; F11.20 Opioid dependence, uncomplicated; Z91.14 Patient's other noncompliance with medication regimen; Z56.0 Unemployment, unspecified; Z91.013 Allergy to seafood; B19.20 Unspecified viral hepatitis C without hepatic coma; D64.9 Anemia, unspecified; E55.9 Vitamin D deficiency, unspecified; G47.00 Insomnia, unspecified; G89.4 Chronic pain syndrome; I10 Essential (primary) hypertension; K21.9 Gastro-esophageal reflux disease without esophagitis; K59.09 Other constipation; M17.10 Unilateral primary osteoarthritis, unspecified knee; N40.0 Benign prostatic hyperplasia without lower urinary tract symptoms; Z91.19 Patient's noncompliance with other medical treatment and regimen; D72.829 Elevated white blood cell count, unspecified; J44.9 Chronic obstructive pulmonary disease, unspecified; F17.200 Nicotine dependence, unspecified, uncomplicated; Z71.51 Drug abuse counseling and surveillance of drug abuser; Z71.6 Tobacco abuse counseling
CPT/HCPCS: 82306; 82962; 83735; 84100; 84443; 85007; 87081

== ENCOUNTER 2017-05-30 20:23 | Inpatient (IN) | payer MEDICARE, MEDICAID ==
[~2017-05-30] VITALS: Ht 188 cm; Wt 105.7 kg
[~2017-05-30 20:23] MED LIST changes: -DSS100 PO; +MIRT15 PO; -MIRT30 PO; -OMEP20 PO; +VITAD1000 PO
[2017-05-30 20:49] VITALS: BP 131/70
[2017-05-30] MEDS ORDERED: QUEtiapine FUMARATE 100 MG TABLET PO PRN (21:00)
[2017-05-30] MEDS ORDERED: -PHARMACY VACCINE NOTE- MISC ONE (22:00)
[2017-05-30] MEDS ORDERED: ALBUTEROL SULFATE HFA 90 MCG/PUFF 8 GM INHALER IH PRN (22:45)
[2017-05-30] MEDS ORDERED: ONDANSETRON HCL 4 MG TABLET PO PRN (22:45)
[2017-05-30] MEDS ORDERED: PETROLATUM,WHITE 71 GM JELLY TP PRN (22:45)
[2017-05-30] MEDS ORDERED: ACETAMINOPHEN 325 MG TABLET PO PRN (22:45)
[2017-05-30] MEDS ORDERED: MAGNESIUM HYDROXIDE SUSPENSION 30 ML UDCUP PO PRN (22:45)
[2017-05-30] MEDS ORDERED: BENZOCAINE/MENTHOL LOZENGE MM PRN (22:45)
[2017-05-30] MEDS ORDERED: BACITRACIN 28.4 GM OINTMENT TP PRN (22:45)
[2017-05-30] MEDS ORDERED: LOPERAMIDE HCL 2 MG CAPSULE PO PRN (22:45)
[2017-05-30] MEDS ORDERED: CloNIDine HCL 0.1 MG TABLET PO PRN (22:45)
[2017-05-30] MEDS ORDERED: MAG HYDROX/AL HYDROX/SIMETH ES 30 ML SUSPENSION UDCUP PO PRN (22:45)
[2017-05-31] MEDS ORDERED: INFLUENZA VIRUS VACCINE QVS 2017-18 (3YR+)/PF 60 MCG/0.5 ML SYRINGE IM ONE (03:00)
[2017-05-31] MEDS ORDERED: -PHARMACY VACCINE NOTE- MISC ONE (03:00)
[2017-05-31 07:14] VITALS: BP 130/86
[2017-05-31] MEDS: IBUPROFEN 600 MG TABLET PO PRN (07:16)
[2017-05-31] MEDS ORDERED: METHADONE HCL 10 MG TABLET PO ONE (08:00)
[2017-05-31 08:18] VITALS: BP 129/75
[2017-05-31] MEDS: OMEPRAZOLE 20 MG CAPSULE PO SCH (09:14)
[2017-05-31] MEDS: FUROSEMIDE 40 MG TABLET PO SCH (09:14)
[2017-05-31] MEDS: NICOTINE 21 MG/24 HOUR PATCH TD SCH (09:14)
[2017-05-31] MEDS: DOCUSATE SODIUM 100 MG CAPSULE PO SCH (09:14)
[2017-05-31] MEDS: TAMSULOSIN HCL 0.4 MG CAPSULE PO SCH (09:15)
[2017-05-31] MEDS: LORazepam 2 MG TABLET PO PRN (12:32)
[2017-05-31 16:26] VITALS: BP 115/72
[2017-05-31] MEDS ORDERED: CARISOPRODOL 350 MG TABLET PO ONE (18:30)
[2017-05-31 19:57] VITALS: BP 130/69
[2017-05-31] MEDS: MIRTAZAPINE 15 MG TABLET PO SCH (20:09)
[2017-06-01 01:48] VITALS: BP 126/82
[2017-06-01] MEDS: LORazepam 2 MG TABLET PO PRN ×2 (01:53→13:27)
[2017-06-01] MEDS: ZOLPIDEM TARTRATE 10 MG TABLET PO PRN ×2 (01:54→21:50)
[2017-06-01 06:05] VITALS: BP 128/76
[2017-06-01] MEDS: METHADONE HCL 10 MG TABLET PO SCH (06:07)
[2017-06-01] MEDS: BuPROPion HCL XL 150 MG ER TABLET PO SCH (08:25)
[2017-06-01] MEDS: DOCUSATE SODIUM 100 MG CAPSULE PO SCH (08:25)
[2017-06-01] MEDS: CARISOPRODOL 350 MG TABLET PO SCH ×2 (08:25→16:47)
[2017-06-01] MEDS: OMEPRAZOLE 20 MG CAPSULE PO SCH (08:25)
[2017-06-01] MEDS: NICOTINE 21 MG/24 HOUR PATCH TD SCH (08:25)
[2017-06-01] MEDS: TAMSULOSIN HCL 0.4 MG CAPSULE PO SCH (08:25)
[2017-06-01] MEDS: FUROSEMIDE 40 MG TABLET PO SCH (08:25)
[2017-06-01 08:37] VITALS: BP 124/66
[2017-06-01 16:28] VITALS: BP 108/76
[2017-06-01] MEDS: MIRTAZAPINE 15 MG TABLET PO SCH (20:20)
[2017-06-01 21:50] VITALS: BP 120/76
[2017-06-02 00:03] VITALS: BP 126/81
[2017-06-02] MEDS: LORazepam 2 MG TABLET PO PRN ×3 (00:03→21:02)
[2017-06-02 06:20] VITALS: BP 116/74
[2017-06-02] MEDS: METHADONE HCL 10 MG TABLET PO SCH (06:25)
[2017-06-02 08:28] VITALS: BP 121/62
[2017-06-02] MEDS: NICOTINE 21 MG/24 HOUR PATCH TD SCH (08:56)
[2017-06-02] MEDS: OMEPRAZOLE 20 MG CAPSULE PO SCH (08:56)
[2017-06-02] MEDS: TAMSULOSIN HCL 0.4 MG CAPSULE PO SCH (08:57)
[2017-06-02] MEDS: DOCUSATE SODIUM 100 MG CAPSULE PO SCH (08:57)
[2017-06-02] MEDS: BuPROPion HCL XL 150 MG ER TABLET PO SCH (08:57)
[2017-06-02] MEDS: CARISOPRODOL 350 MG TABLET PO SCH ×2 (08:57→17:17)
[2017-06-02] MEDS: FUROSEMIDE 40 MG TABLET PO SCH (09:38)
[2017-06-02 16:18] VITALS: BP 110/69
[2017-06-02] MEDS: MIRTAZAPINE 15 MG TABLET PO SCH (20:06)
[2017-06-03] MEDS: LORazepam 2 MG TABLET PO PRN ×3 (01:05→22:33)
[2017-06-03 05:43] VITALS: BP 120/88
[2017-06-03] MEDS: METHADONE HCL 10 MG TABLET PO SCH (06:18)
[2017-06-03] MEDS: BuPROPion HCL XL 150 MG ER TABLET PO SCH (08:21)
[2017-06-03] MEDS: DOCUSATE SODIUM 100 MG CAPSULE PO SCH (08:21)
[2017-06-03] MEDS: NICOTINE 21 MG/24 HOUR PATCH TD SCH (08:21)
[2017-06-03] MEDS: TAMSULOSIN HCL 0.4 MG CAPSULE PO SCH (08:22)
[2017-06-03] MEDS: CARISOPRODOL 350 MG TABLET PO SCH ×2 (08:22→16:14)
[2017-06-03] MEDS: FUROSEMIDE 40 MG TABLET PO SCH (08:22)
[2017-06-03] MEDS: OMEPRAZOLE 20 MG CAPSULE PO SCH (08:22)
[2017-06-03 08:30] VITALS: BP 117/70
[2017-06-03 17:45] VITALS: BP 112/67
[2017-06-03] MEDS: MIRTAZAPINE 15 MG TABLET PO SCH (20:05)
[2017-06-03] MEDS: ZOLPIDEM TARTRATE 10 MG TABLET PO PRN (20:23)
[2017-06-04 02:23] VITALS: BP 117/63
[2017-06-04] MEDS: IBUPROFEN 600 MG TABLET PO PRN (02:23)
[2017-06-04] MEDS: LORazepam 2 MG TABLET PO PRN ×2 (02:50→16:18)
[2017-06-04] MEDS ORDERED: CARI350 PO (03:57)
[2017-06-04] MEDS ORDERED: METH10 PO (03:57)
[2017-06-04] MEDS ORDERED: OMEP20 PO (03:57)
[2017-06-04] MEDS ORDERED: DSS100 PO (03:57)
[2017-06-04] MEDS: METHADONE HCL 10 MG TABLET PO SCH (06:39)
[2017-06-04 08:33] VITALS: BP 111/71
[2017-06-04] MEDS: BuPROPion HCL XL 150 MG ER TABLET PO SCH (08:51)
[2017-06-04] MEDS: DOCUSATE SODIUM 100 MG CAPSULE PO SCH (08:51)
[2017-06-04] MEDS: CARISOPRODOL 350 MG TABLET PO SCH ×2 (08:51→20:07)
[2017-06-04] MEDS: FUROSEMIDE 40 MG TABLET PO SCH (08:51)
[2017-06-04] MEDS: TAMSULOSIN HCL 0.4 MG CAPSULE PO SCH (08:51)
[2017-06-04] MEDS: NICOTINE 21 MG/24 HOUR PATCH TD SCH (08:51)
[2017-06-04] MEDS: OMEPRAZOLE 20 MG CAPSULE PO SCH (08:51)
[2017-06-04 09:53] LABS: BASOPHILS % (AUTO) 0.7 % (0.0-2.0); EOSINOPHILS % (AUTO) 2.8 % (1.0-6.0); HEMATOCRIT 37.3 % (41-53); HEMOGLOBIN 12.7 g/dL (13.5-17.5); LYMPHOCYTES # (AUTO) 3.2 K/uL (1.0-4.8); LYMPHOCYTES % (AUTO) 46.8 % (22.0-44.0); MEAN CORPUSCULAR HEMOGLOBIN 31.2 pg (26.0-34.0); MEAN CORPUSCULAR VOLUME 92 fL (80-100); MONOCYTES # (AUTO) 0.8 K/uL (0.1-1.0); MONOCYTES % (AUTO) 11.9 % (2.0-9.0); NEUTROPHILS # (AUTO) 2.6 K/uL (1.8-7.7); NEUTROPHILS % (AUTO) 37.8 % (40.0-70.0); PLATELET COUNT (AUTO) 359 K/uL (150-450); RED BLOOD CELL COUNT(AUTO) 4.07 MIL/uL (4.50-5.90); RED CELL DISTRIBUTION WIDTH 13.9 % (11.5-14.5)
[2017-06-04 10:39] LABS: ALANINE AMINOTRANSFERASE 101 U/L (12-78); ALBUMIN 3.2 g/dL (3.4-5.0); ALKALINE PHOSPHATASE 88 U/L (46-116); ANION GAP 10 mmol/L (8-16); ASPARTATE AMINOTRANSFERASE 63 U/L (15-37); BILIRUBIN,TOTAL 0.1 mg/dL (0.1-1.0); CALCIUM, TOTAL 8.3 mg/dL (8.8-10.5); CARBON DIOXIDE 26 mmol/L (22-29); CHLORIDE 103 mmol/L (98-107); CHOLESTEROL 134 mg/dL (131-200); CREATININE 1.13 mg/dL (0.60-1.30); FREE T4 (FREE THYROXINE) 1.07 ng/dL (0.76-1.46); GLOMERULAR FILTR. RATE CALC > 60 mL/min (>60); GLUCOSE,RANDOM 112 mg/dL (70-110); HDL CHOLESTEROL 66 mg/dL (40-60); LDL CHOL (CALC.) 48 mg/dL (0-130); POTASSIUM 4.1 mmol/L (3.5-5.1); SODIUM SERUM 139 mmol/L (136-145); THYROID STIMULATING HORMONE 2.65 uIU/mL (0.36-3.74); TOTAL PROTEIN, SERUM 7.9 g/dL (6.4-8.2); TRIGLYCERIDES 102 mg/dL (15-150); UREA NITROGEN, BLOOD 23 mg/dL (7-18)
[2017-06-04 16:27] VITALS: BP 119/67
[2017-06-04] MEDS: MIRTAZAPINE 15 MG TABLET PO SCH (20:07)
[2017-06-04] MEDS: ZOLPIDEM TARTRATE 10 MG TABLET PO PRN (21:12)
[2017-06-05 00:35] VITALS: BP 121/68
[2017-06-05] MEDS: LORazepam 2 MG TABLET PO PRN ×2 (00:40→15:35)
[2017-06-05 03:05] VITALS: BP 118/62
[2017-06-05] MEDS: IBUPROFEN 600 MG TABLET PO PRN (03:11)
[2017-06-05] MEDS: METHADONE HCL 10 MG TABLET PO SCH (06:24)
[2017-06-05 08:00] VITALS: BP 114/65
[2017-06-05] MEDS: CARISOPRODOL 350 MG TABLET PO SCH ×2 (09:38→20:15)
[2017-06-05] MEDS: OMEPRAZOLE 20 MG CAPSULE PO SCH (09:38)
[2017-06-05] MEDS: TAMSULOSIN HCL 0.4 MG CAPSULE PO SCH (09:38)
[2017-06-05] MEDS: FUROSEMIDE 40 MG TABLET PO SCH (09:38)
[2017-06-05] MEDS: BuPROPion HCL XL 150 MG ER TABLET PO SCH (09:38)
[2017-06-05] MEDS: DOCUSATE SODIUM 100 MG CAPSULE PO SCH (09:39)
[2017-06-05] MEDS: NICOTINE 21 MG/24 HOUR PATCH TD SCH (12:35)
[2017-06-05 16:13] VITALS: BP 110/68
[2017-06-05] MEDS: MIRTAZAPINE 30 MG TABLET PO SCH (20:15)
[2017-06-05] MEDS: ZOLPIDEM TARTRATE 10 MG TABLET PO PRN (20:57)
[2017-06-06 00:05] VITALS: BP 120/86
[2017-06-06] MEDS: LORazepam 2 MG TABLET PO PRN ×2 (00:05→17:25)
[2017-06-06 06:02] VITALS: BP 118/78
[2017-06-06] MEDS: METHADONE HCL 10 MG TABLET PO SCH (06:04)
[2017-06-06 08:54] VITALS: BP 122/69
[2017-06-06] MEDS: BuPROPion HCL XL 150 MG ER TABLET PO SCH (09:01)
[2017-06-06] MEDS: DOCUSATE SODIUM 100 MG CAPSULE PO SCH (09:02)
[2017-06-06] MEDS: FUROSEMIDE 40 MG TABLET PO SCH (09:02)
[2017-06-06] MEDS: CARISOPRODOL 350 MG TABLET PO SCH (09:02)
[2017-06-06] MEDS: OMEPRAZOLE 20 MG CAPSULE PO SCH (09:02)
[2017-06-06] MEDS: TAMSULOSIN HCL 0.4 MG CAPSULE PO SCH (09:02)
[2017-06-06] MEDS: NICOTINE 21 MG/24 HOUR PATCH TD SCH (09:03)
[2017-06-06 09:12] LABS: % IRON SATURATION 25.9 % (30-44)
[2017-06-06 16:51] VITALS: BP 119/65
[2017-06-06] MEDS ORDERED: CARISOPRODOL 350 MG TABLET PO ONE (20:00)
[2017-06-06] MEDS: MIRTAZAPINE 30 MG TABLET PO SCH (20:09)
[2017-06-06] MEDS: ZOLPIDEM TARTRATE 10 MG TABLET PO PRN (20:42)
[2017-06-06 23:46] VITALS: BP 112/75
[2017-06-07] MEDS: LORazepam 2 MG TABLET PO PRN ×3 (00:02→16:05)
[2017-06-07] MEDS: METHADONE HCL 10 MG TABLET PO SCH (06:03)
[2017-06-07 08:29] VITALS: BP 117/73
[2017-06-07] MEDS: NICOTINE 21 MG/24 HOUR PATCH TD SCH (09:16)
[2017-06-07] MEDS: MULTIVITAMINS WITH IRON TABLET PO SCH (09:16)
[2017-06-07] MEDS: BuPROPion HCL XL 150 MG ER TABLET PO SCH (09:16)
[2017-06-07] MEDS: OMEPRAZOLE 20 MG CAPSULE PO SCH (09:17)
[2017-06-07] MEDS: TAMSULOSIN HCL 0.4 MG CAPSULE PO SCH (09:17)
[2017-06-07] MEDS: DOCUSATE SODIUM 100 MG CAPSULE PO SCH (09:17)
[2017-06-07] MEDS: CARISOPRODOL 350 MG TABLET PO SCH ×2 (09:17→16:05)
[2017-06-07] MEDS: FUROSEMIDE 40 MG TABLET PO SCH (09:18)
[2017-06-07 16:20] VITALS: BP 115/71
[2017-06-07] MEDS: MIRTAZAPINE 30 MG TABLET PO SCH (20:33)
[2017-06-07] MEDS: ZOLPIDEM TARTRATE 10 MG TABLET PO PRN (20:38)
[2017-06-08 00:15] VITALS: BP 115/72
[2017-06-08] MEDS: LORazepam 2 MG TABLET PO PRN (00:22)
[2017-06-08] MEDS: IBUPROFEN 600 MG TABLET PO PRN (04:42)
[2017-06-08] MEDS: METHADONE HCL 10 MG TABLET PO SCH (06:29)
[2017-06-08 08:39] VITALS: BP 117/64
[2017-06-08] MEDS: OMEPRAZOLE 20 MG CAPSULE PO SCH (09:15)
[2017-06-08] MEDS: DOCUSATE SODIUM 100 MG CAPSULE PO SCH (09:15)
[2017-06-08] MEDS: BuPROPion HCL XL 150 MG ER TABLET PO SCH (09:15)
[2017-06-08] MEDS: FUROSEMIDE 40 MG TABLET PO SCH (09:15)
[2017-06-08] MEDS: MULTIVITAMINS WITH IRON TABLET PO SCH (09:15)
[2017-06-08] MEDS: CARISOPRODOL 350 MG TABLET PO SCH (09:16)
[2017-06-08] MEDS: TAMSULOSIN HCL 0.4 MG CAPSULE PO SCH (09:16)
[2017-06-08] MEDS: NICOTINE 21 MG/24 HOUR PATCH TD SCH (09:17)
[2017-06-08] MEDS ORDERED: MULT-57 PO (15:48)
== END 2017-06-08 16:30 | disposition home or self-care (01) | DRG 885 ==
LOC: B2S 20:49 → EDSTATUS 20:58
PROVIDERS: ADMIT Psychiatry & Neurology Psychiatry; ATTEND Psychiatry & Neurology Psychiatry
DX: F33.2 Major depressive disorder, recurrent severe without psychotic features (principal); R45.851 Suicidal ideations; F25.9 Schizoaffective disorder, unspecified; Z91.14 Patient's other noncompliance with medication regimen; B18.2 Chronic viral hepatitis C; E78.5 Hyperlipidemia, unspecified; Z28.21 Immunization not carried out because of patient refusal; Z91.013 Allergy to seafood; Z56.0 Unemployment, unspecified; Z59.0 Homelessness; N40.0 Benign prostatic hyperplasia without lower urinary tract symptoms; F17.200 Nicotine dependence, unspecified, uncomplicated; F41.9 Anxiety disorder, unspecified; G47.00 Insomnia, unspecified; G89.4 Chronic pain syndrome; I10 Essential (primary) hypertension; J44.9 Chronic obstructive pulmonary disease, unspecified; K21.9 Gastro-esophageal reflux disease without esophagitis; M17.0 Bilateral primary osteoarthritis of knee; Z82.49 Family history of ischemic heart disease and other diseases of the circulatory system; Z96.653 Presence of artificial knee joint, bilateral; Z99.3 Dependence on wheelchair; Z71.6 Tobacco abuse counseling
CPT/HCPCS: 83540; 83550; 84439; 84443; 87081; 99285

== ENCOUNTER 2017-07-02 20:00 | Inpatient (IN) | payer MEDICARE, MEDICAID ==
[~2017-07-02] VITALS: Ht 188 cm; Wt 103.0 kg
[~2017-07-02 20:00] MED LIST changes: -BUPR-93 PO; +DSS100 PO; -FERR-89 PO; -MIRT15 PO; +MULT-57 PO; +OMEP20 PO; -VITAD1000 PO
[2017-07-02] MEDS: MIRTAZAPINE 15 MG TABLET PO SCH (22:08)
[2017-07-02 22:20] VITALS: BP 112/69
[2017-07-03 06:35] VITALS: BP 137/62
[2017-07-03] MEDS ORDERED: ALBUTEROL SULFATE HFA 90 MCG/PUFF 8 GM INHALER IH PRN (08:45)
[2017-07-03] MEDS ORDERED: ONDANSETRON HCL 4 MG TABLET PO PRN (08:45)
[2017-07-03] MEDS ORDERED: LOPERAMIDE HCL 2 MG CAPSULE PO PRN (08:45)
[2017-07-03] MEDS ORDERED: ACETAMINOPHEN 325 MG TABLET PO PRN (08:45)
[2017-07-03] MEDS ORDERED: MAGNESIUM HYDROXIDE SUSPENSION 30 ML UDCUP PO PRN (08:45)
[2017-07-03] MEDS ORDERED: MAG HYDROX/AL HYDROX/SIMETH ES 30 ML SUSPENSION UDCUP PO PRN (08:45)
[2017-07-03] MEDS ORDERED: CloNIDine HCL 0.1 MG TABLET PO PRN (08:45)
[2017-07-03] MEDS ORDERED: PETROLATUM,WHITE 71 GM JELLY TP PRN (08:45)
[2017-07-03] MEDS ORDERED: BACITRACIN 28.4 GM OINTMENT TP PRN (08:45)
[2017-07-03] MEDS ORDERED: BENZOCAINE/MENTHOL LOZENGE MM PRN (08:45)
[2017-07-03] MEDS ORDERED: METHADONE HCL 10 MG/5 ML SOLUTION ORAL.SYG PO SCH ×2 (09:00→12:00)
[2017-07-03] MEDS: BuPROPion HCL XL 150 MG ER TABLET PO SCH (09:53)
[2017-07-03] MEDS: FUROSEMIDE 40 MG TABLET PO SCH (09:53)
[2017-07-03] MEDS: DOCUSATE SODIUM 100 MG CAPSULE PO SCH (09:53)
[2017-07-03] MEDS: CARISOPRODOL 350 MG TABLET PO SCH ×2 (09:53→17:11)
[2017-07-03] MEDS: TAMSULOSIN HCL 0.4 MG CAPSULE PO SCH (09:53)
[2017-07-03] MEDS: OMEPRAZOLE 20 MG CAPSULE PO SCH (09:53)
[2017-07-03] MEDS: MULTIVITAMINS WITH IRON TABLET PO SCH (09:53)
[2017-07-03] MEDS: NICOTINE 21 MG/24 HOUR PATCH TD SCH (09:54)
[2017-07-03 10:33] VITALS: BP 116/63
[2017-07-03] MEDS: LORazepam 1 MG TABLET PO PRN (16:01)
[2017-07-03 16:18] VITALS: BP 111/61
[2017-07-03] MEDS ORDERED: CARISOPRODOL 350 MG TABLET PO SCH (17:00)
[2017-07-03] MEDS: MIRTAZAPINE 15 MG TABLET PO SCH (20:31)
[2017-07-03] MEDS: ZOLPIDEM TARTRATE 10 MG TABLET PO PRN (21:03)
[2017-07-04 01:41] VITALS: BP 116/62
[2017-07-04] MEDS: LORazepam 1 MG TABLET PO PRN ×2 (01:43→23:51)
[2017-07-04 08:00] VITALS: BP 121/66
[2017-07-04] MEDS: MULTIVITAMINS WITH IRON TABLET PO SCH (08:23)
[2017-07-04] MEDS: OMEPRAZOLE 20 MG CAPSULE PO SCH (08:23)
[2017-07-04] MEDS: FUROSEMIDE 40 MG TABLET PO SCH (08:23)
[2017-07-04] MEDS: DOCUSATE SODIUM 100 MG CAPSULE PO SCH (08:24)
[2017-07-04] MEDS: CARISOPRODOL 350 MG TABLET PO SCH ×2 (08:24→16:35)
[2017-07-04] MEDS: BuPROPion HCL XL 150 MG ER TABLET PO SCH (08:24)
[2017-07-04] MEDS: TAMSULOSIN HCL 0.4 MG CAPSULE PO SCH (08:24)
[2017-07-04] MEDS: NICOTINE 21 MG/24 HOUR PATCH TD SCH (08:27)
[2017-07-04] MEDS ORDERED: METHADONE HCL 10 MG/5 ML SOLUTION ORAL.SYG PO SCH (12:00)
[2017-07-04 16:12] VITALS: BP 128/77
[2017-07-04] MEDS: MIRTAZAPINE 15 MG TABLET PO SCH (20:42)
[2017-07-04] MEDS: ZOLPIDEM TARTRATE 10 MG TABLET PO PRN (21:36)
[2017-07-05] VITALS: BP 117/66
[2017-07-05 06:37] VITALS: BP 122/83
[2017-07-05] MEDS: METHADONE HCL 10 MG TABLET PO SCH (06:38)
[2017-07-05] MEDS: BuPROPion HCL XL 150 MG ER TABLET PO SCH (08:21)
[2017-07-05] MEDS: MULTIVITAMINS WITH IRON TABLET PO SCH (08:21)
[2017-07-05] MEDS: TAMSULOSIN HCL 0.4 MG CAPSULE PO SCH (08:21)
[2017-07-05] MEDS: CARISOPRODOL 350 MG TABLET PO SCH ×2 (08:21→16:34)
[2017-07-05] MEDS: FUROSEMIDE 40 MG TABLET PO SCH (08:21)
[2017-07-05] MEDS: OMEPRAZOLE 20 MG CAPSULE PO SCH (08:21)
[2017-07-05] MEDS: DOCUSATE SODIUM 100 MG CAPSULE PO SCH (08:21)
[2017-07-05] MEDS: NICOTINE 21 MG/24 HOUR PATCH TD SCH (08:22)
[2017-07-05 08:33] VITALS: BP 111/71
[2017-07-05] MEDS: LORazepam 1 MG TABLET PO PRN (10:10)
[2017-07-05 16:25] VITALS: BP 105/69
[2017-07-05] MEDS ORDERED: PERMETHRIN 5% 60 GM CREAM TP ONE (17:00)
[2017-07-05] MEDS: MIRTAZAPINE 15 MG TABLET PO SCH (20:39)
[2017-07-05] MEDS: ZOLPIDEM TARTRATE 10 MG TABLET PO PRN (21:23)
[2017-07-06 00:29] VITALS: BP 114/60
[2017-07-06] MEDS: LORazepam 1 MG TABLET PO PRN ×2 (00:32→12:56)
[2017-07-06] MEDS: IBUPROFEN 600 MG TABLET PO PRN ×2 (00:45→19:59)
[2017-07-06] MEDS: METHADONE HCL 10 MG TABLET PO SCH (06:02)
[2017-07-06] MEDS: MULTIVITAMINS WITH IRON TABLET PO SCH (08:15)
[2017-07-06] MEDS: TAMSULOSIN HCL 0.4 MG CAPSULE PO SCH (08:15)
[2017-07-06] MEDS: DOCUSATE SODIUM 100 MG CAPSULE PO SCH (08:15)
[2017-07-06] MEDS: FUROSEMIDE 40 MG TABLET PO SCH (08:15)
[2017-07-06] MEDS: CARISOPRODOL 350 MG TABLET PO SCH ×2 (08:16→16:37)
[2017-07-06] MEDS: NICOTINE 21 MG/24 HOUR PATCH TD SCH (08:16)
[2017-07-06] MEDS: OMEPRAZOLE 20 MG CAPSULE PO SCH (08:16)
[2017-07-06 08:17] LABS: BASOPHILS % (AUTO) 0.4 % (0.0-2.0); EOSINOPHILS % (AUTO) 3.9 % (1.0-6.0); HEMATOCRIT 39.9 % (41-53); HEMOGLOBIN 13.4 g/dL (13.5-17.5); LYMPHOCYTES # (AUTO) 2.8 K/uL (1.0-4.8); LYMPHOCYTES % (AUTO) 52.9 % (22.0-44.0); MEAN CORPUSCULAR HEMOGLOBIN 30.3 pg (26.0-34.0); MEAN CORPUSCULAR HGB CONC 33.6 G/dL (31.0-37.0); MEAN CORPUSCULAR VOLUME 90 fL (80-100); MONOCYTES # (AUTO) 0.5 K/uL (0.1-1.0); MONOCYTES % (AUTO) 9.6 % (2.0-9.0); NEUTROPHILS # (AUTO) 1.8 K/uL (1.8-7.7); NEUTROPHILS % (AUTO) 33.2 % (40.0-70.0); PLATELET COUNT (AUTO) 249 K/uL (150-450); RED BLOOD CELL COUNT(AUTO) 4.42 MIL/uL (4.50-5.90); RED CELL DISTRIBUTION WIDTH 13.5 % (11.5-14.5)
[2017-07-06] MEDS: HYDROCORTISONE 1% 30 GM OINTMENT TP SCH ×2 (08:20→16:37)
[2017-07-06 08:22] VITALS: BP 110/67
[2017-07-06 08:40] LABS: ALANINE AMINOTRANSFERASE 73 U/L (12-78); ALKALINE PHOSPHATASE 82 U/L (46-116); ANION GAP 6 mmol/L (8-16); ASPARTATE AMINOTRANSFERASE 44 U/L (15-37); BILIRUBIN,TOTAL 0.2 mg/dL (0.1-1.0); CALCIUM, TOTAL 8.5 mg/dL (8.8-10.5); CARBON DIOXIDE 29 mmol/L (22-29); CHLORIDE 105 mmol/L (98-107); CHOL/HDL RATIO 2.1 (4.2-7.3); CHOLESTEROL 112 mg/dL (131-200); CREATININE 1.16 mg/dL (0.60-1.30); FREE T4 (FREE THYROXINE) 1.03 ng/dL (0.76-1.46); GLOMERULAR FILTR. RATE CALC > 60 mL/min (>60); GLUCOSE,RANDOM 108 mg/dL (70-110); HDL CHOLESTEROL 53 mg/dL (40-60); LDL CHOL (CALC.) 42 mg/dL (0-130); POTASSIUM 4.1 mmol/L (3.5-5.1); SODIUM SERUM 140 mmol/L (136-145); THYROID STIMULATING HORMONE 1.66 uIU/mL (0.36-3.74); TOTAL PROTEIN, SERUM 7.6 g/dL (6.4-8.2); TRIGLYCERIDES 83 mg/dL (15-150); UREA NITROGEN, BLOOD 21 mg/dL (7-18)
[2017-07-06 08:46] LABS: HEMOGLOBIN A1C 5.8 % (4.5-6.2)
[2017-07-06] MEDS ORDERED: BuPROPion HCL XL 150 MG ER TABLET PO SCH (09:00)
[2017-07-06 16:06] VITALS: BP 121/63
[2017-07-06] MEDS ORDERED: BuPROPion HCL XL 150 MG ER TABLET PO ONE (19:45)
[2017-07-06 19:59] VITALS: BP 117/72
[2017-07-06] MEDS: MIRTAZAPINE 15 MG TABLET PO SCH (21:00)
[2017-07-06] MEDS: ZOLPIDEM TARTRATE 10 MG TABLET PO PRN (21:22)
[2017-07-07 00:23] VITALS: BP 105/64
[2017-07-07] MEDS: LORazepam 1 MG TABLET PO PRN (00:24)
[2017-07-07] MEDS: METHADONE HCL 10 MG TABLET PO SCH (07:06)
[2017-07-07 08:28] VITALS: BP 111/60
[2017-07-07] MEDS: DOCUSATE SODIUM 100 MG CAPSULE PO SCH (08:41)
[2017-07-07] MEDS: OMEPRAZOLE 20 MG CAPSULE PO SCH (08:42)
[2017-07-07] MEDS: NICOTINE 21 MG/24 HOUR PATCH TD SCH (08:42)
[2017-07-07] MEDS: CARISOPRODOL 350 MG TABLET PO SCH ×2 (08:42→16:26)
[2017-07-07] MEDS: FUROSEMIDE 40 MG TABLET PO SCH (08:42)
[2017-07-07] MEDS: MULTIVITAMINS WITH IRON TABLET PO SCH (08:42)
[2017-07-07] MEDS: BuPROPion HCL XL 150 MG ER TABLET PO SCH (08:42)
[2017-07-07] MEDS: TAMSULOSIN HCL 0.4 MG CAPSULE PO SCH (08:42)
[2017-07-07] MEDS: HYDROCORTISONE 1% 30 GM OINTMENT TP SCH ×2 (08:44→16:26)
[2017-07-07] MEDS ORDERED: PERMETHRIN 5% 60 GM CREAM TP ONE (11:45)
[2017-07-07 16:02] VITALS: BP 105/61
[2017-07-07] MEDS: MIRTAZAPINE 15 MG TABLET PO SCH (20:50)
[2017-07-07] MEDS: ZOLPIDEM TARTRATE 10 MG TABLET PO PRN (22:29)
[2017-07-08 01:00] VITALS: BP 120/81
[2017-07-08] MEDS: LORazepam 1 MG TABLET PO PRN ×2 (01:02→11:57)
[2017-07-08] MEDS: IBUPROFEN 600 MG TABLET PO PRN (01:03)
[2017-07-08] MEDS: METHADONE HCL 10 MG TABLET PO SCH (06:03)
[2017-07-08 08:28] VITALS: BP 115/60
[2017-07-08] MEDS: CARISOPRODOL 350 MG TABLET PO SCH ×2 (08:57→16:54)
[2017-07-08] MEDS: NICOTINE 21 MG/24 HOUR PATCH TD SCH (08:58)
[2017-07-08] MEDS: HYDROCORTISONE 1% 30 GM OINTMENT TP SCH ×2 (08:58→16:53)
[2017-07-08] MEDS: OMEPRAZOLE 20 MG CAPSULE PO SCH (08:59)
[2017-07-08] MEDS: BuPROPion HCL XL 150 MG ER TABLET PO SCH (08:59)
[2017-07-08] MEDS: MULTIVITAMINS WITH IRON TABLET PO SCH (08:59)
[2017-07-08] MEDS: FUROSEMIDE 40 MG TABLET PO SCH (08:59)
[2017-07-08] MEDS: CHOLECALCIFEROL (VIT D3) 1,000 UNITS TABLET PO SCH (09:00)
[2017-07-08] MEDS: TAMSULOSIN HCL 0.4 MG CAPSULE PO SCH (09:00)
[2017-07-08] MEDS: DOCUSATE SODIUM 100 MG CAPSULE PO SCH (09:00)
[2017-07-08 16:02] VITALS: BP 127/78
[2017-07-08] MEDS: QUEtiapine FUMARATE 100 MG TABLET PO PRN ×2 (16:05→16:52)
[2017-07-08] MEDS: MIRTAZAPINE 15 MG TABLET PO SCH (20:38)
[2017-07-08] MEDS: ESZOPICLONE 2 MG TABLET PO PRN (20:58)
[2017-07-09 02:05] VITALS: BP 120/80
[2017-07-09] MEDS: QUEtiapine FUMARATE 100 MG TABLET PO PRN ×3 (02:09→20:09)
[2017-07-09] MEDS: IBUPROFEN 600 MG TABLET PO PRN ×3 (02:09→20:09)
[2017-07-09] MEDS: METHADONE HCL 10 MG TABLET PO SCH (06:15)
[2017-07-09 08:20] VITALS: BP 110/62
[2017-07-09] MEDS: FUROSEMIDE 40 MG TABLET PO SCH (08:23)
[2017-07-09] MEDS: MULTIVITAMINS WITH IRON TABLET PO SCH (08:23)
[2017-07-09] MEDS: CHOLECALCIFEROL (VIT D3) 1,000 UNITS TABLET PO SCH (08:23)
[2017-07-09] MEDS: BuPROPion HCL XL 150 MG ER TABLET PO SCH (08:23)
[2017-07-09] MEDS: DOCUSATE SODIUM 100 MG CAPSULE PO SCH (08:23)
[2017-07-09] MEDS: CARISOPRODOL 350 MG TABLET PO SCH ×2 (08:23→16:10)
[2017-07-09] MEDS: OMEPRAZOLE 20 MG CAPSULE PO SCH (08:23)
[2017-07-09] MEDS: TAMSULOSIN HCL 0.4 MG CAPSULE PO SCH (08:23)
[2017-07-09] MEDS: NICOTINE 21 MG/24 HOUR PATCH TD SCH (08:24)
[2017-07-09] MEDS: HYDROCORTISONE 1% 30 GM OINTMENT TP SCH ×2 (08:25→16:10)
[2017-07-09 12:36] VITALS: BP 114/68
[2017-07-09 16:02] VITALS: BP 116/68
[2017-07-09 20:09] VITALS: BP 112/72
[2017-07-09] MEDS: MIRTAZAPINE 15 MG TABLET PO SCH (20:09)
[2017-07-09] MEDS: ESZOPICLONE 2 MG TABLET PO PRN (22:35)
[2017-07-10 00:02] VITALS: BP 111/60
[2017-07-10] MEDS: QUEtiapine FUMARATE 100 MG TABLET PO PRN (05:09)
[2017-07-10] MEDS: METHADONE HCL 10 MG TABLET PO SCH (06:21)
[2017-07-10 08:30] VITALS: BP 122/64
[2017-07-10] MEDS: FUROSEMIDE 40 MG TABLET PO SCH (08:31)
[2017-07-10] MEDS: TAMSULOSIN HCL 0.4 MG CAPSULE PO SCH (08:31)
[2017-07-10] MEDS: CHOLECALCIFEROL (VIT D3) 1,000 UNITS TABLET PO SCH (08:31)
[2017-07-10] MEDS: BuPROPion HCL XL 150 MG ER TABLET PO SCH (08:31)
[2017-07-10] MEDS: DOCUSATE SODIUM 100 MG CAPSULE PO SCH (08:31)
[2017-07-10] MEDS: OMEPRAZOLE 20 MG CAPSULE PO SCH (08:31)
[2017-07-10] MEDS: CARISOPRODOL 350 MG TABLET PO SCH ×2 (08:32→16:39)
[2017-07-10] MEDS: NICOTINE 21 MG/24 HOUR PATCH TD SCH (08:32)
[2017-07-10] MEDS: MULTIVITAMINS WITH IRON TABLET PO SCH (08:32)
[2017-07-10] MEDS: HYDROCORTISONE 1% 30 GM OINTMENT TP SCH ×2 (08:32→16:39)
[2017-07-10 13:21] VITALS: BP 113/64
[2017-07-10] MEDS: IBUPROFEN 600 MG TABLET PO PRN (13:21)
[2017-07-10] MEDS: LORazepam 1 MG TABLET PO PRN (13:21)
[2017-07-10] MEDS ORDERED: BUPR-93 PO (16:02)
[2017-07-10] MEDS ORDERED: MIRT15 PO (16:02)
[2017-07-10] MEDS ORDERED: NICO-802 TD (16:02)
[2017-07-10] MEDS ORDERED: HYDR30OI13 TP (16:02)
[2017-07-10] MEDS ORDERED: CARI350T PO (16:02)
[2017-07-10] MEDS ORDERED: CHOL10002 PO (16:02)
[2017-07-10] MEDS ORDERED: METH10SO PO (16:02)
[2017-07-10 16:39] VITALS: BP 115/66
== END 2017-07-10 18:10 | DRG 885 ==
LOC: B2X 21:04
PROVIDERS: ADMIT Psychiatry & Neurology Psychiatry; ATTEND Psychiatry & Neurology Psychiatry
DX: F33.2 Major depressive disorder, recurrent severe without psychotic features (principal); R45.851 Suicidal ideations; Z91.19 Patient's noncompliance with other medical treatment and regimen; B18.2 Chronic viral hepatitis C; F17.200 Nicotine dependence, unspecified, uncomplicated; B86 Scabies; L30.9 Dermatitis, unspecified; E55.9 Vitamin D deficiency, unspecified; E78.5 Hyperlipidemia, unspecified; F41.9 Anxiety disorder, unspecified; G47.00 Insomnia, unspecified; G89.4 Chronic pain syndrome; I10 Essential (primary) hypertension; J44.9 Chronic obstructive pulmonary disease, unspecified; K21.9 Gastro-esophageal reflux disease without esophagitis; M17.0 Bilateral primary osteoarthritis of knee; N40.0 Benign prostatic hyperplasia without lower urinary tract symptoms; Z96.653 Presence of artificial knee joint, bilateral; Z59.0 Homelessness; Z91.013 Allergy to seafood; Z99.3 Dependence on wheelchair; Z71.6 Tobacco abuse counseling; Z82.49 Family history of ischemic heart disease and other diseases of the circulatory system
CPT/HCPCS: 82306; 83036; 84439; 84443; 87081

== ENCOUNTER 2017-08-09 18:01 | Inpatient (IN) | payer MEDICARE, MEDICAID ==
[~2017-08-09] VITALS: Ht 188 cm; Wt 104.3 kg
[~2017-08-09 18:01] MED LIST changes: +BUPR-93 PO; +CARI350T PO; +CHOL10002 PO; +HYDR30OI13 TP; +METH10SO PO; +MIRT15 PO; +NICO-802 TD
[2017-08-09] MEDS ORDERED: CARISOPRODOL 350 MG TABLET PO ONE (21:15)
[2017-08-09 21:27] VITALS: BP 116/76
[2017-08-09] MEDS: MIRTAZAPINE 15 MG TABLET PO SCH (21:29)
[2017-08-09] MEDS ORDERED: -PHARMACY VACCINE NOTE- MISC ONE (21:30)
[2017-08-09] MEDS ORDERED: CloNIDine HCL 0.1 MG TABLET PO PRN (22:45)
[2017-08-09] MEDS ORDERED: ALBUTEROL SULFATE HFA 90 MCG/PUFF 8 GM INHALER IH PRN (22:45)
[2017-08-09] MEDS ORDERED: MAGNESIUM HYDROXIDE SUSPENSION 30 ML UDCUP PO PRN (22:45)
[2017-08-09] MEDS ORDERED: ACETAMINOPHEN 325 MG TABLET PO PRN (22:45)
[2017-08-09] MEDS ORDERED: BENZOCAINE/MENTHOL LOZENGE MM PRN (22:45)
[2017-08-09] MEDS ORDERED: PETROLATUM,WHITE 71 GM JELLY TP PRN (22:45)
[2017-08-09] MEDS ORDERED: ONDANSETRON HCL 4 MG TABLET PO PRN (22:45)
[2017-08-09] MEDS ORDERED: LOPERAMIDE HCL 2 MG CAPSULE PO PRN (22:45)
[2017-08-09] MEDS ORDERED: BACITRACIN 28.4 GM OINTMENT TP PRN (22:45)
[2017-08-09] MEDS ORDERED: MAG HYDROX/AL HYDROX/SIMETH ES 30 ML SUSPENSION UDCUP PO PRN (22:45)
[2017-08-10 05:35] VITALS: BP 108/70
[2017-08-10] MEDS: METHADONE HCL 10 MG TABLET PO SCH (05:41)
[2017-08-10 08:32] VITALS: BP 118/69
[2017-08-10] MEDS: CHOLECALCIFEROL (VIT D3) 1,000 UNITS TABLET PO SCH (08:34)
[2017-08-10] MEDS: OMEPRAZOLE 20 MG CAPSULE PO SCH (08:34)
[2017-08-10] MEDS: BuPROPion HCL XL 150 MG ER TABLET PO SCH (08:34)
[2017-08-10] MEDS: DOCUSATE SODIUM 100 MG CAPSULE PO SCH (08:34)
[2017-08-10] MEDS: TAMSULOSIN HCL 0.4 MG CAPSULE PO SCH (08:34)
[2017-08-10] MEDS: CARISOPRODOL 350 MG TABLET PO SCH ×2 (08:35→16:37)
[2017-08-10] MEDS: NICOTINE 21 MG/24 HOUR PATCH TD SCH (08:39)
[2017-08-10] MEDS ORDERED: CARISOPRODOL 350 MG TABLET PO SCH (09:00)
[2017-08-10] MEDS: FUROSEMIDE 40 MG TABLET PO SCH (09:53)
[2017-08-10] MEDS: BACITRACIN 28.4 GM OINTMENT TP SCH ×2 (09:53→16:37)
[2017-08-10 16:29] VITALS: BP 114/56
[2017-08-10 16:35] VITALS: BP 116/69
[2017-08-10] MEDS: QUEtiapine FUMARATE 100 MG TABLET PO PRN (17:53)
[2017-08-10] MEDS: MIRTAZAPINE 15 MG TABLET PO SCH (20:31)
[2017-08-10] MEDS: ESZOPICLONE 2 MG TABLET PO PRN (22:50)
[2017-08-10 22:51] VITALS: BP 118/74
[2017-08-11 05:15] VITALS: BP 140/75
[2017-08-11] MEDS: METHADONE HCL 10 MG TABLET PO SCH (05:32)
[2017-08-11] MEDS: OMEPRAZOLE 20 MG CAPSULE PO SCH (08:42)
[2017-08-11] MEDS: FUROSEMIDE 40 MG TABLET PO SCH (08:42)
[2017-08-11] MEDS: TAMSULOSIN HCL 0.4 MG CAPSULE PO SCH (08:42)
[2017-08-11] MEDS: CARISOPRODOL 350 MG TABLET PO SCH ×2 (08:42→16:08)
[2017-08-11] MEDS: BuPROPion HCL XL 150 MG ER TABLET PO SCH (08:43)
[2017-08-11] MEDS: BACITRACIN 28.4 GM OINTMENT TP SCH ×2 (08:43→16:08)
[2017-08-11] MEDS: NICOTINE 21 MG/24 HOUR PATCH TD SCH (08:43)
[2017-08-11] MEDS: CHOLECALCIFEROL (VIT D3) 1,000 UNITS TABLET PO SCH (08:43)
[2017-08-11] MEDS: DOCUSATE SODIUM 100 MG CAPSULE PO SCH (08:43)
[2017-08-11 08:54] VITALS: BP 129/61
[2017-08-11] MEDS: CEPHALEXIN MONOHYDRATE 500 MG CAPSULE PO SCH ×3 (09:31→16:08)
[2017-08-11 16:00] VITALS: BP 115/60
[2017-08-11 16:42] VITALS: BP 125/69
[2017-08-11] MEDS: LORazepam 1 MG TABLET PO PRN (16:42)
[2017-08-11] MEDS: MIRTAZAPINE 15 MG TABLET PO SCH (20:39)
[2017-08-11 21:04] VITALS: BP 120/77
[2017-08-11] MEDS: ESZOPICLONE 2 MG TABLET PO PRN (21:04)
[2017-08-12 00:26] VITALS: BP 120/60
[2017-08-12] MEDS: QUEtiapine FUMARATE 100 MG TABLET PO PRN (00:28)
[2017-08-12] MEDS: IBUPROFEN 600 MG TABLET PO PRN ×2 (00:28→20:26)
[2017-08-12] MEDS: METHADONE HCL 10 MG TABLET PO SCH (05:56)
[2017-08-12 08:26] VITALS: BP 110/62
[2017-08-12] MEDS: CARISOPRODOL 350 MG TABLET PO SCH ×2 (08:37→16:49)
[2017-08-12] MEDS: OMEPRAZOLE 20 MG CAPSULE PO SCH (08:37)
[2017-08-12] MEDS: TAMSULOSIN HCL 0.4 MG CAPSULE PO SCH (08:37)
[2017-08-12] MEDS: FUROSEMIDE 40 MG TABLET PO SCH (08:37)
[2017-08-12] MEDS: CHOLECALCIFEROL (VIT D3) 1,000 UNITS TABLET PO SCH (08:37)
[2017-08-12] MEDS: DOCUSATE SODIUM 100 MG CAPSULE PO SCH (08:38)
[2017-08-12] MEDS: BuPROPion HCL XL 150 MG ER TABLET PO SCH (08:38)
[2017-08-12] MEDS: CEPHALEXIN MONOHYDRATE 500 MG CAPSULE PO SCH ×3 (08:38→16:49)
[2017-08-12] MEDS: NICOTINE 21 MG/24 HOUR PATCH TD SCH (08:38)
[2017-08-12] MEDS: BACITRACIN 28.4 GM OINTMENT TP SCH ×2 (08:40→16:49)
[2017-08-12 15:50] VITALS: BP 115/70
[2017-08-12] MEDS: LORazepam 1 MG TABLET PO PRN (15:51)
[2017-08-12 16:38] VITALS: BP 117/61
[2017-08-12] MEDS: MIRTAZAPINE 15 MG TABLET PO SCH (20:23)
[2017-08-12 20:26] VITALS: BP 120/77
[2017-08-12] MEDS: ESZOPICLONE 2 MG TABLET PO PRN (20:52)
[2017-08-13 00:43] VITALS: BP 114/63
[2017-08-13] MEDS: LORazepam 1 MG TABLET PO PRN ×2 (00:47→14:01)
[2017-08-13] MEDS: METHADONE HCL 10 MG TABLET PO SCH (06:31)
[2017-08-13 08:05] LABS: BASOPHILS % (AUTO) 0.7 % (0.0-2.0); EOSINOPHILS % (AUTO) 3.9 % (1.0-6.0); HEMATOCRIT 39.3 % (41-53); HEMOGLOBIN 13.6 g/dL (13.5-17.5); LYMPHOCYTES # (AUTO) 2.7 K/uL (1.0-4.8); LYMPHOCYTES % (AUTO) 36.9 % (22.0-44.0); MEAN CORPUSCULAR HEMOGLOBIN 30.4 pg (26.0-34.0); MEAN CORPUSCULAR HGB CONC 34.6 G/dL (31.0-37.0); MEAN CORPUSCULAR VOLUME 88 fL (80-100); MONOCYTES % (AUTO) 13.5 % (2.0-9.0); NEUTROPHILS # (AUTO) 3.3 K/uL (1.8-7.7); PLATELET COUNT (AUTO) 250 K/uL (150-450); RED BLOOD CELL COUNT(AUTO) 4.46 MIL/uL (4.50-5.90); RED CELL DISTRIBUTION WIDTH 14.6 % (11.5-14.5)
[2017-08-13 08:29] VITALS: BP 105/67
[2017-08-13 08:29] LABS: HEMOGLOBIN A1C 6.3 % (4.5-6.2)
[2017-08-13 08:51] LABS: ALANINE AMINOTRANSFERASE 74 U/L (12-78); ALBUMIN 2.9 g/dL (3.4-5.0); ALKALINE PHOSPHATASE 133 U/L (46-116); ANION GAP 8 mmol/L (8-16); ASPARTATE AMINOTRANSFERASE 49 U/L (15-37); BILIRUBIN,TOTAL 0.3 mg/dL (0.1-1.0); CALCIUM, TOTAL 8.1 mg/dL (8.8-10.5); CARBON DIOXIDE 28 mmol/L (22-29); CHLORIDE 104 mmol/L (98-107); CHOL/HDL RATIO 2.3 (4.2-7.3); CHOLESTEROL 109 mg/dL (131-200); CREATININE 0.84 mg/dL (0.60-1.30); FREE T4 (FREE THYROXINE) 1.27 ng/dL (0.76-1.46); GLOMERULAR FILTR. RATE CALC > 60 mL/min (>60); GLUCOSE,RANDOM 93 mg/dL (70-110); HDL CHOLESTEROL 47 mg/dL (40-60); LDL CHOL (CALC.) 44 mg/dL (0-130); POTASSIUM 4.8 mmol/L (3.5-5.1); SODIUM SERUM 140 mmol/L (136-145); THYROID STIMULATING HORMONE 2.04 uIU/mL (0.36-3.74); TOTAL PROTEIN, SERUM 7.7 g/dL (6.4-8.2); TRIGLYCERIDES 91 mg/dL (15-150); UREA NITROGEN, BLOOD 11 mg/dL (7-18)
[2017-08-13] MEDS: NICOTINE 21 MG/24 HOUR PATCH TD SCH (09:28)
[2017-08-13] MEDS: BuPROPion HCL XL 150 MG ER TABLET PO SCH (09:28)
[2017-08-13] MEDS: OMEPRAZOLE 20 MG CAPSULE PO SCH (09:28)
[2017-08-13] MEDS: CHOLECALCIFEROL (VIT D3) 1,000 UNITS TABLET PO SCH (09:28)
[2017-08-13] MEDS: DOCUSATE SODIUM 100 MG CAPSULE PO SCH (09:29)
[2017-08-13] MEDS: CEPHALEXIN MONOHYDRATE 500 MG CAPSULE PO SCH ×3 (09:29→16:46)
[2017-08-13] MEDS: TAMSULOSIN HCL 0.4 MG CAPSULE PO SCH (09:29)
[2017-08-13] MEDS: CARISOPRODOL 350 MG TABLET PO SCH ×2 (09:29→16:46)
[2017-08-13] MEDS: FUROSEMIDE 40 MG TABLET PO SCH (09:29)
[2017-08-13] MEDS: BACITRACIN 28.4 GM OINTMENT TP SCH ×2 (09:30→16:48)
[2017-08-13] MEDS ORDERED: HYDROCORTISONE 1% 120 ML LOTION TP PRN (12:30)
[2017-08-13] MEDS ORDERED: HYDROCORTISONE 1% 30 GM CREAM TP PRN (12:45)
[2017-08-13] MEDS: QUEtiapine FUMARATE 100 MG TABLET PO PRN (14:01)
[2017-08-13] MEDS: IBUPROFEN 600 MG TABLET PO PRN (14:02)
[2017-08-13 16:00] VITALS: BP 105/54
[2017-08-13] MEDS: HYDROCORTISONE 1% 30 GM CREAM TP SCH (16:46)
[2017-08-13] MEDS: MIRTAZAPINE 15 MG TABLET PO SCH (20:18)
[2017-08-13] MEDS: ESZOPICLONE 2 MG TABLET PO PRN (22:02)
[2017-08-14 00:10] VITALS: BP 110/68
[2017-08-14] MEDS: LORazepam 1 MG TABLET PO PRN ×3 (00:19→20:39)
[2017-08-14] MEDS: QUEtiapine FUMARATE 100 MG TABLET PO PRN ×3 (00:19→20:39)
[2017-08-14] MEDS: METHADONE HCL 10 MG TABLET PO SCH (06:26)
[2017-08-14] MEDS: NICOTINE 21 MG/24 HOUR PATCH TD SCH (08:18)
[2017-08-14] MEDS: FUROSEMIDE 40 MG TABLET PO SCH (08:18)
[2017-08-14] MEDS: DOCUSATE SODIUM 100 MG CAPSULE PO SCH (08:18)
[2017-08-14] MEDS: OMEPRAZOLE 20 MG CAPSULE PO SCH (08:18)
[2017-08-14] MEDS: CHOLECALCIFEROL (VIT D3) 1,000 UNITS TABLET PO SCH (08:18)
[2017-08-14] MEDS: TAMSULOSIN HCL 0.4 MG CAPSULE PO SCH (08:18)
[2017-08-14] MEDS: BACITRACIN 28.4 GM OINTMENT TP SCH ×2 (08:19→16:59)
[2017-08-14] MEDS: BuPROPion HCL XL 150 MG ER TABLET PO SCH (08:19)
[2017-08-14] MEDS: CARISOPRODOL 350 MG TABLET PO SCH ×2 (08:19→17:00)
[2017-08-14] MEDS: CEPHALEXIN MONOHYDRATE 500 MG CAPSULE PO SCH ×3 (08:19→17:00)
[2017-08-14] MEDS: HYDROCORTISONE 1% 30 GM CREAM TP SCH ×2 (08:20→16:59)
[2017-08-14 08:28] VITALS: BP 105/60
[2017-08-14] MEDS: IBUPROFEN 600 MG TABLET PO PRN ×2 (13:18→20:40)
[2017-08-14 13:19] VITALS: BP 110/64
[2017-08-14 16:41] VITALS: BP 105/60
[2017-08-14] MEDS: MIRTAZAPINE 15 MG TABLET PO SCH (21:54)
[2017-08-14] MEDS: ESZOPICLONE 2 MG TABLET PO PRN (21:54)
[2017-08-15 02:19] VITALS: BP 115/88
[2017-08-15] MEDS: QUEtiapine FUMARATE 100 MG TABLET PO PRN ×3 (02:19→22:00)
[2017-08-15] MEDS: LORazepam 1 MG TABLET PO PRN ×3 (02:19→22:00)
[2017-08-15] MEDS: METHADONE HCL 10 MG TABLET PO SCH (06:18)
[2017-08-15 08:35] VITALS: BP 123/67
[2017-08-15] MEDS: DOCUSATE SODIUM 100 MG CAPSULE PO SCH (08:47)
[2017-08-15] MEDS: CARISOPRODOL 350 MG TABLET PO SCH ×2 (08:47→16:06)
[2017-08-15] MEDS: TAMSULOSIN HCL 0.4 MG CAPSULE PO SCH (08:47)
[2017-08-15] MEDS: FUROSEMIDE 40 MG TABLET PO SCH (08:47)
[2017-08-15] MEDS: OMEPRAZOLE 20 MG CAPSULE PO SCH (08:47)
[2017-08-15] MEDS: CEPHALEXIN MONOHYDRATE 500 MG CAPSULE PO SCH ×3 (08:47→16:06)
[2017-08-15] MEDS: CHOLECALCIFEROL (VIT D3) 1,000 UNITS TABLET PO SCH (08:47)
[2017-08-15] MEDS: NICOTINE 21 MG/24 HOUR PATCH TD SCH (08:47)
[2017-08-15] MEDS: BuPROPion HCL XL 150 MG ER TABLET PO SCH (08:47)
[2017-08-15] MEDS: BACITRACIN 28.4 GM OINTMENT TP SCH ×2 (08:48→16:08)
[2017-08-15] MEDS: HYDROCORTISONE 1% 30 GM CREAM TP SCH ×2 (08:48→16:08)
[2017-08-15 11:08] VITALS: BP 126/71
[2017-08-15] MEDS: IBUPROFEN 600 MG TABLET PO PRN ×2 (11:08→21:08)
[2017-08-15 16:05] VITALS: BP 107/68
[2017-08-15] MEDS: MIRTAZAPINE 15 MG TABLET PO SCH (21:07)
[2017-08-15] MEDS: ESZOPICLONE 2 MG TABLET PO PRN (21:07)
[2017-08-15 22:00] VITALS: BP 123/71
[2017-08-16 06:50] VITALS: BP 122/76
[2017-08-16] MEDS: METHADONE HCL 10 MG TABLET PO SCH (06:59)
[2017-08-16 08:00] VITALS: BP 125/66
[2017-08-16] MEDS: CEPHALEXIN MONOHYDRATE 500 MG CAPSULE PO SCH ×3 (08:25→16:42)
[2017-08-16] MEDS: OMEPRAZOLE 20 MG CAPSULE PO SCH (08:25)
[2017-08-16] MEDS: DOCUSATE SODIUM 100 MG CAPSULE PO SCH (08:25)
[2017-08-16] MEDS: CARISOPRODOL 350 MG TABLET PO SCH ×2 (08:25→16:42)
[2017-08-16] MEDS: CHOLECALCIFEROL (VIT D3) 1,000 UNITS TABLET PO SCH (08:25)
[2017-08-16] MEDS: BuPROPion HCL XL 150 MG ER TABLET PO SCH (08:26)
[2017-08-16] MEDS: NICOTINE 21 MG/24 HOUR PATCH TD SCH (08:26)
[2017-08-16] MEDS: BACITRACIN 28.4 GM OINTMENT TP SCH ×2 (08:26→16:42)
[2017-08-16] MEDS: FUROSEMIDE 40 MG TABLET PO SCH (08:26)
[2017-08-16] MEDS: TAMSULOSIN HCL 0.4 MG CAPSULE PO SCH (08:26)
[2017-08-16] MEDS: HYDROCORTISONE 1% 30 GM CREAM TP SCH ×2 (08:27→16:42)
[2017-08-16 13:13] VITALS: BP 111/74
[2017-08-16] MEDS: IBUPROFEN 600 MG TABLET PO PRN (13:13)
[2017-08-16] MEDS: LORazepam 1 MG TABLET PO PRN ×2 (13:13→21:46)
[2017-08-16] MEDS: QUEtiapine FUMARATE 100 MG TABLET PO PRN ×2 (14:05→21:46)
[2017-08-16 16:15] VITALS: BP 111/62
[2017-08-16 20:50] VITALS: BP 115/68
[2017-08-16] MEDS: MIRTAZAPINE 15 MG TABLET PO SCH (20:53)
[2017-08-16] MEDS: ESZOPICLONE 2 MG TABLET PO PRN (20:53)
[2017-08-17 00:10] VITALS: BP 130/86
[2017-08-17] MEDS: LORazepam 1 MG TABLET PO PRN (00:21)
[2017-08-17] MEDS: METHADONE HCL 10 MG TABLET PO SCH (06:12)
[2017-08-17 08:21] VITALS: BP 106/60
[2017-08-17] MEDS: CEPHALEXIN MONOHYDRATE 500 MG CAPSULE PO SCH ×3 (08:31→16:28)
[2017-08-17] MEDS: BuPROPion HCL XL 150 MG ER TABLET PO SCH (08:31)
[2017-08-17] MEDS: CARISOPRODOL 350 MG TABLET PO SCH ×2 (08:32→16:28)
[2017-08-17] MEDS: TAMSULOSIN HCL 0.4 MG CAPSULE PO SCH (08:32)
[2017-08-17] MEDS: FUROSEMIDE 40 MG TABLET PO SCH (08:32)
[2017-08-17] MEDS: OMEPRAZOLE 20 MG CAPSULE PO SCH (08:32)
[2017-08-17] MEDS: CHOLECALCIFEROL (VIT D3) 1,000 UNITS TABLET PO SCH (08:32)
[2017-08-17] MEDS: DOCUSATE SODIUM 100 MG CAPSULE PO SCH (08:32)
[2017-08-17] MEDS: BACITRACIN 28.4 GM OINTMENT TP SCH ×2 (08:33→16:29)
[2017-08-17] MEDS: HYDROCORTISONE 1% 30 GM CREAM TP SCH ×2 (08:33→16:29)
[2017-08-17] MEDS: NICOTINE 21 MG/24 HOUR PATCH TD SCH (08:41)
[2017-08-17] MEDS: QUEtiapine FUMARATE 100 MG TABLET PO PRN (11:49)
[2017-08-17] MEDS: IBUPROFEN 600 MG TABLET PO PRN ×2 (11:50→20:06)
[2017-08-17 11:53] VITALS: BP 110/60
[2017-08-17 16:33] VITALS: BP 119/65
[2017-08-17] MEDS: MIRTAZAPINE 15 MG TABLET PO SCH (20:05)
[2017-08-17 20:06] VITALS: BP 116/68
[2017-08-18 00:16] VITALS: BP 121/67
[2017-08-18] MEDS: LORazepam 1 MG TABLET PO PRN (00:20)
[2017-08-18] MEDS: QUEtiapine FUMARATE 100 MG TABLET PO PRN (00:20)
[2017-08-18 05:14] VITALS: BP 117/67
[2017-08-18] MEDS: IBUPROFEN 600 MG TABLET PO PRN (05:20)
[2017-08-18] MEDS: METHADONE HCL 10 MG TABLET PO SCH (06:01)
[2017-08-18] MEDS: CARISOPRODOL 350 MG TABLET PO SCH (08:32)
[2017-08-18] MEDS: OMEPRAZOLE 20 MG CAPSULE PO SCH (08:32)
[2017-08-18] MEDS: BuPROPion HCL XL 150 MG ER TABLET PO SCH (08:32)
[2017-08-18] MEDS: DOCUSATE SODIUM 100 MG CAPSULE PO SCH (08:32)
[2017-08-18] MEDS: TAMSULOSIN HCL 0.4 MG CAPSULE PO SCH (08:32)
[2017-08-18 08:33] VITALS: BP 126/77
[2017-08-18] MEDS: NICOTINE 21 MG/24 HOUR PATCH TD SCH (08:33)
[2017-08-18] MEDS: FUROSEMIDE 40 MG TABLET PO SCH (08:33)
[2017-08-18] MEDS: CHOLECALCIFEROL (VIT D3) 1,000 UNITS TABLET PO SCH (08:33)
[2017-08-18] MEDS: BACITRACIN 28.4 GM OINTMENT TP SCH (08:34)
[2017-08-18] MEDS: HYDROCORTISONE 1% 30 GM CREAM TP SCH (08:34)
== END 2017-08-18 13:15 | disposition home or self-care (01) | DRG 885 ==
LOC: B2S 20:00
PROVIDERS: ADMIT Psychiatry & Neurology Psychiatry; ATTEND Psychiatry & Neurology Psychiatry
DX: F33.2 Major depressive disorder, recurrent severe without psychotic features (principal); F11.20 Opioid dependence, uncomplicated; R45.851 Suicidal ideations; F41.9 Anxiety disorder, unspecified; B18.2 Chronic viral hepatitis C; F17.200 Nicotine dependence, unspecified, uncomplicated; G89.29 Other chronic pain; F25.9 Schizoaffective disorder, unspecified; G47.00 Insomnia, unspecified; I10 Essential (primary) hypertension; J44.9 Chronic obstructive pulmonary disease, unspecified; K21.9 Gastro-esophageal reflux disease without esophagitis; L30.9 Dermatitis, unspecified; N40.0 Benign prostatic hyperplasia without lower urinary tract symptoms; Z96.653 Presence of artificial knee joint, bilateral; Z59.0 Homelessness; Z91.14 Patient's other noncompliance with medication regimen; Z99.3 Dependence on wheelchair; Z91.013 Allergy to seafood; Z82.49 Family history of ischemic heart disease and other diseases of the circulatory system; Z71.6 Tobacco abuse counseling
CPT/HCPCS: 83036; 84439; 84443; 87081

== ENCOUNTER 2017-09-16 21:18 | Inpatient (IN) | payer MEDICARE, MEDICAID ==
[~2017-09-16] VITALS: Ht 188 cm; Wt 93.9 kg
[~2017-09-16 21:18] MED LIST changes: -METH10SO PO; -NICO-802 TD
[2017-09-16 22:08] VITALS: BP 116/76
[2017-09-17 06:06] VITALS: BP 110/68
[2017-09-17] MEDS ORDERED: PETROLATUM,WHITE 71 GM JELLY TP PRN (07:00)
[2017-09-17] MEDS ORDERED: ACETAMINOPHEN 325 MG TABLET PO PRN (07:00)
[2017-09-17] MEDS ORDERED: ALBUTEROL SULFATE HFA 90 MCG/PUFF 8 GM INHALER IH PRN (07:00)
[2017-09-17] MEDS ORDERED: BENZOCAINE/MENTHOL LOZENGE MM PRN (07:00)
[2017-09-17] MEDS ORDERED: MAG HYDROX/AL HYDROX/SIMETH ES 30 ML SUSPENSION UDCUP PO PRN (07:00)
[2017-09-17] MEDS ORDERED: ONDANSETRON HCL 4 MG TABLET PO PRN (07:00)
[2017-09-17] MEDS ORDERED: LOPERAMIDE HCL 2 MG CAPSULE PO PRN (07:00)
[2017-09-17] MEDS ORDERED: CloNIDine HCL 0.1 MG TABLET PO PRN (07:00)
[2017-09-17] MEDS ORDERED: BACITRACIN 28.4 GM OINTMENT TP PRN (07:00)
[2017-09-17] MEDS ORDERED: MAGNESIUM HYDROXIDE SUSPENSION 30 ML UDCUP PO PRN (07:00)
[2017-09-17 08:18] VITALS: BP 119/63
[2017-09-17] MEDS: TAMSULOSIN HCL 0.4 MG CAPSULE PO SCH (08:38)
[2017-09-17] MEDS: OMEPRAZOLE 20 MG CAPSULE PO SCH (08:38)
[2017-09-17] MEDS: CHOLECALCIFEROL (VIT D3) 1,000 UNITS TABLET PO SCH (08:38)
[2017-09-17] MEDS: IBUPROFEN 600 MG TABLET PO PRN (08:38)
[2017-09-17] MEDS: DOCUSATE SODIUM 100 MG CAPSULE PO SCH (08:39)
[2017-09-17] MEDS: NICOTINE 21 MG/24 HOUR PATCH TD SCH (08:39)
[2017-09-17] MEDS: DULoxetine HCL 20 MG CAPSULE PO SCH (08:39)
[2017-09-17] MEDS: CARISOPRODOL 350 MG TABLET PO SCH ×2 (08:39→16:58)
[2017-09-17] MEDS: MULTIVITAMINS WITH IRON TABLET PO SCH (08:39)
[2017-09-17] MEDS: FUROSEMIDE 40 MG TABLET PO SCH (08:39)
[2017-09-17] MEDS: METHADONE HCL 10 MG TABLET PO SCH (14:28)
[2017-09-17 16:00] VITALS: BP 117/66
[2017-09-17] MEDS: LORazepam 1 MG TABLET PO PRN (20:41)
[2017-09-17] MEDS: MIRTAZAPINE 15 MG TABLET PO SCH (20:41)
[2017-09-17] MEDS: ChlorproMAZINE HCL 50 MG TABLET PO PRN (20:41)
[2017-09-18 06:39] VITALS: BP 120/67
[2017-09-18 08:12] VITALS: BP 134/71
[2017-09-18] MEDS: METHADONE HCL 10 MG TABLET PO SCH (08:22)
[2017-09-18] MEDS: MULTIVITAMINS WITH IRON TABLET PO SCH (08:28)
[2017-09-18] MEDS: TAMSULOSIN HCL 0.4 MG CAPSULE PO SCH (08:28)
[2017-09-18] MEDS: CHOLECALCIFEROL (VIT D3) 1,000 UNITS TABLET PO SCH (08:28)
[2017-09-18] MEDS: OMEPRAZOLE 20 MG CAPSULE PO SCH (08:29)
[2017-09-18] MEDS: CARISOPRODOL 350 MG TABLET PO SCH ×2 (08:29→17:04)
[2017-09-18] MEDS: DOCUSATE SODIUM 100 MG CAPSULE PO SCH (08:29)
[2017-09-18] MEDS: FUROSEMIDE 40 MG TABLET PO SCH (08:30)
[2017-09-18] MEDS: DULoxetine HCL 20 MG CAPSULE PO SCH (08:33)
[2017-09-18] MEDS: LORazepam 1 MG TABLET PO PRN (08:38)
[2017-09-18] MEDS: NICOTINE 21 MG/24 HOUR PATCH TD SCH (09:00)
[2017-09-18] MEDS: GABAPENTIN 300 MG CAPSULE PO SCH ×3 (14:09→20:38)
[2017-09-18 16:00] VITALS: BP 113/64
[2017-09-18] MEDS: MIRTAZAPINE 15 MG TABLET PO SCH (20:38)
[2017-09-19 00:45] VITALS: BP 107/73
[2017-09-19] MEDS: ZOLPIDEM TARTRATE 5 MG TABLET PO PRN ×2 (00:48→21:07)
[2017-09-19] MEDS: METHADONE HCL 10 MG TABLET PO SCH (08:32)
[2017-09-19] MEDS: DULoxetine HCL 20 MG CAPSULE PO SCH (08:32)
[2017-09-19] MEDS: NICOTINE 21 MG/24 HOUR PATCH TD SCH (08:32)
[2017-09-19] MEDS: OMEPRAZOLE 20 MG CAPSULE PO SCH (08:32)
[2017-09-19] MEDS: TAMSULOSIN HCL 0.4 MG CAPSULE PO SCH (08:32)
[2017-09-19] MEDS: GABAPENTIN 300 MG CAPSULE PO SCH ×4 (08:33→20:09)
[2017-09-19] MEDS: MULTIVITAMINS WITH IRON TABLET PO SCH (08:33)
[2017-09-19] MEDS: CHOLECALCIFEROL (VIT D3) 1,000 UNITS TABLET PO SCH (08:33)
[2017-09-19] MEDS: CARISOPRODOL 350 MG TABLET PO SCH ×2 (08:33→16:11)
[2017-09-19] MEDS: DOCUSATE SODIUM 100 MG CAPSULE PO SCH (08:33)
[2017-09-19 08:38] VITALS: BP 114/66
[2017-09-19] MEDS: FUROSEMIDE 40 MG TABLET PO SCH (08:39)
[2017-09-19 09:12] LABS: BASOPHILS % (AUTO) 0.4 % (0.0-2.0); EOSINOPHILS % (AUTO) 3.4 % (1.0-6.0); HEMATOCRIT 37.2 % (41-53); HEMOGLOBIN 12.6 g/dL (13.5-17.5); LYMPHOCYTES # (AUTO) 2.6 K/uL (1.0-4.8); LYMPHOCYTES % (AUTO) 44.9 % (22.0-44.0); MEAN CORPUSCULAR HEMOGLOBIN 30.1 pg (26.0-34.0); MEAN CORPUSCULAR HGB CONC 33.8 G/dL (31.0-37.0); MEAN CORPUSCULAR VOLUME 89 fL (80-100); MONOCYTES # (AUTO) 0.6 K/uL (0.1-1.0); MONOCYTES % (AUTO) 10.4 % (2.0-9.0); NEUTROPHILS # (AUTO) 2.4 K/uL (1.8-7.7); NEUTROPHILS % (AUTO) 40.9 % (40.0-70.0); PLATELET COUNT (AUTO) 241 K/uL (150-450); RED BLOOD CELL COUNT(AUTO) 4.17 MIL/uL (4.50-5.90); RED CELL DISTRIBUTION WIDTH 15.2 % (11.5-14.5)
[2017-09-19 09:45] LABS: ALANINE AMINOTRANSFERASE 41 U/L (12-78); ALBUMIN 2.6 g/dL (3.4-5.0); ALKALINE PHOSPHATASE 71 U/L (46-116); ANION GAP 4 mmol/L (8-16); ASPARTATE AMINOTRANSFERASE 27 U/L (15-37); BILIRUBIN,TOTAL 0.2 mg/dL (0.1-1.0); CALCIUM, TOTAL 8.3 mg/dL (8.8-10.5); CARBON DIOXIDE 29 mmol/L (22-29); CHLORIDE 104 mmol/L (98-107); CHOL/HDL RATIO 2.1 (4.2-7.3); CHOLESTEROL 103 mg/dL (131-200); CREATININE 0.93 mg/dL (0.60-1.30); FREE T4 (FREE THYROXINE) 1.18 ng/dL (0.76-1.46); GLOMERULAR FILTR. RATE CALC > 60 mL/min (>60); GLUCOSE,RANDOM 91 mg/dL (70-110); HDL CHOLESTEROL 49 mg/dL (40-60); LDL CHOL (CALC.) 47 mg/dL (0-130); POTASSIUM 4.3 mmol/L (3.5-5.1); SODIUM SERUM 137 mmol/L (136-145); THYROID STIMULATING HORMONE 1.56 uIU/mL (0.36-3.74); TOTAL PROTEIN, SERUM 6.7 g/dL (6.4-8.2); TRIGLYCERIDES 37 mg/dL (15-150); UREA NITROGEN, BLOOD 15 mg/dL (7-18)
[2017-09-19] MEDS: ChlorproMAZINE HCL 50 MG TABLET PO PRN (14:02)
[2017-09-19 17:01] VITALS: BP 121/60
[2017-09-19] MEDS: MIRTAZAPINE 15 MG TABLET PO SCH (20:10)
[2017-09-20 00:30] VITALS: BP 108/67
[2017-09-20] MEDS: ChlorproMAZINE HCL 50 MG TABLET PO PRN ×2 (00:50→15:06)
[2017-09-20] MEDS: IBUPROFEN 600 MG TABLET PO PRN (00:51)
[2017-09-20 08:32] VITALS: BP 117/67
[2017-09-20] MEDS: MULTIVITAMINS WITH IRON TABLET PO SCH (08:51)
[2017-09-20] MEDS: TAMSULOSIN HCL 0.4 MG CAPSULE PO SCH (08:51)
[2017-09-20] MEDS: NICOTINE 21 MG/24 HOUR PATCH TD SCH (08:51)
[2017-09-20] MEDS: DULoxetine HCL 20 MG CAPSULE PO SCH (08:52)
[2017-09-20] MEDS: CARISOPRODOL 350 MG TABLET PO SCH ×2 (08:52→16:32)
[2017-09-20] MEDS: METHADONE HCL 10 MG TABLET PO SCH (08:52)
[2017-09-20] MEDS: GABAPENTIN 300 MG CAPSULE PO SCH ×4 (08:52→21:52)
[2017-09-20] MEDS: OMEPRAZOLE 20 MG CAPSULE PO SCH (08:52)
[2017-09-20] MEDS: CHOLECALCIFEROL (VIT D3) 1,000 UNITS TABLET PO SCH (08:52)
[2017-09-20] MEDS: DOCUSATE SODIUM 100 MG CAPSULE PO SCH (08:52)
[2017-09-20] MEDS: FUROSEMIDE 40 MG TABLET PO SCH (08:56)
[2017-09-20] MEDS: LORazepam 1 MG TABLET PO PRN (12:40)
[2017-09-20] MEDS ORDERED: VITAMINS A & D 60 GM OINTMENT TP PRN (13:45)
[2017-09-20 16:31] VITALS: BP 115/64
[2017-09-20] MEDS: MIRTAZAPINE 15 MG TABLET PO SCH (21:51)
[2017-09-20] MEDS: ZOLPIDEM TARTRATE 5 MG TABLET PO PRN (21:52)
[2017-09-21 00:30] VITALS: BP 112/72
[2017-09-21] MEDS: LORazepam 1 MG TABLET PO PRN (00:35)
[2017-09-21] MEDS: ChlorproMAZINE HCL 50 MG TABLET PO PRN ×2 (04:17→21:31)
[2017-09-21] MEDS: OMEPRAZOLE 20 MG CAPSULE PO SCH (08:20)
[2017-09-21] MEDS: TAMSULOSIN HCL 0.4 MG CAPSULE PO SCH (08:20)
[2017-09-21] MEDS: FUROSEMIDE 40 MG TABLET PO SCH (08:20)
[2017-09-21] MEDS: DULoxetine HCL 20 MG CAPSULE PO SCH (08:20)
[2017-09-21] MEDS: CHOLECALCIFEROL (VIT D3) 1,000 UNITS TABLET PO SCH (08:21)
[2017-09-21] MEDS: NICOTINE 21 MG/24 HOUR PATCH TD SCH (08:21)
[2017-09-21] MEDS: CARISOPRODOL 350 MG TABLET PO SCH ×2 (08:21→16:05)
[2017-09-21] MEDS: GABAPENTIN 300 MG CAPSULE PO SCH ×4 (08:21→20:03)
[2017-09-21] MEDS: DOCUSATE SODIUM 100 MG CAPSULE PO SCH (08:22)
[2017-09-21] MEDS: METHADONE HCL 10 MG TABLET PO SCH (08:22)
[2017-09-21] MEDS: MULTIVITAMINS WITH IRON TABLET PO SCH (08:22)
[2017-09-21 08:30] VITALS: BP 113/61
[2017-09-21] MEDS: DICLOFENAC SODIUM 1% 100 GM GEL [4GM] TP SCH ×2 (11:31→16:05)
[2017-09-21 12:37] VITALS: BP 115/68
[2017-09-21] MEDS: IBUPROFEN 600 MG TABLET PO PRN (12:39)
[2017-09-21 16:18] VITALS: BP 113/66
[2017-09-21] MEDS: MIRTAZAPINE 15 MG TABLET PO SCH (20:03)
[2017-09-21] MEDS: ZOLPIDEM TARTRATE 5 MG TABLET PO PRN (22:04)
[2017-09-22 05:42] VITALS: BP 110/61
[2017-09-22] MEDS: DULoxetine HCL 60 MG CAPSULE PO SCH (07:01)
[2017-09-22] MEDS: GABAPENTIN 300 MG CAPSULE PO SCH ×4 (07:02→20:11)
[2017-09-22] MEDS: METHADONE HCL 10 MG TABLET PO SCH (07:02)
[2017-09-22] MEDS: CARISOPRODOL 350 MG TABLET PO SCH ×2 (07:03→15:05)
[2017-09-22 08:00] VITALS: BP 111/64
[2017-09-22] MEDS: NICOTINE 21 MG/24 HOUR PATCH TD SCH (08:40)
[2017-09-22] MEDS: MULTIVITAMINS WITH IRON TABLET PO SCH (08:41)
[2017-09-22] MEDS: TAMSULOSIN HCL 0.4 MG CAPSULE PO SCH (08:41)
[2017-09-22] MEDS: CHOLECALCIFEROL (VIT D3) 1,000 UNITS TABLET PO SCH (08:42)
[2017-09-22] MEDS: DICLOFENAC SODIUM 1% 100 GM GEL [4GM] TP SCH ×2 (08:42→16:19)
[2017-09-22] MEDS: DOCUSATE SODIUM 100 MG CAPSULE PO SCH (08:42)
[2017-09-22] MEDS: OMEPRAZOLE 20 MG CAPSULE PO SCH (08:42)
[2017-09-22] MEDS: FUROSEMIDE 40 MG TABLET PO SCH (08:42)
[2017-09-22 16:30] VITALS: BP 121/64
[2017-09-22] MEDS: MIRTAZAPINE 15 MG TABLET PO SCH (20:11)
[2017-09-22] MEDS: ChlorproMAZINE HCL 50 MG TABLET PO PRN (21:07)
[2017-09-22] MEDS: ZOLPIDEM TARTRATE 5 MG TABLET PO PRN (21:52)
[2017-09-23 04:35] VITALS: BP 117/69
[2017-09-23] MEDS: LORazepam 1 MG TABLET PO PRN (04:39)
[2017-09-23] MEDS: IBUPROFEN 600 MG TABLET PO PRN (04:39)
[2017-09-23] MEDS: METHADONE HCL 10 MG TABLET PO SCH (06:42)
[2017-09-23] MEDS: GABAPENTIN 300 MG CAPSULE PO SCH ×4 (06:42→20:08)
[2017-09-23] MEDS: DULoxetine HCL 60 MG CAPSULE PO SCH (06:42)
[2017-09-23] MEDS: CARISOPRODOL 350 MG TABLET PO SCH ×2 (06:43→14:56)
[2017-09-23] MEDS: FUROSEMIDE 40 MG TABLET PO SCH (08:07)
[2017-09-23] MEDS: MULTIVITAMINS WITH IRON TABLET PO SCH (08:08)
[2017-09-23] MEDS: CHOLECALCIFEROL (VIT D3) 1,000 UNITS TABLET PO SCH (08:08)
[2017-09-23] MEDS: TAMSULOSIN HCL 0.4 MG CAPSULE PO SCH (08:08)
[2017-09-23] MEDS: DICLOFENAC SODIUM 1% 100 GM GEL [4GM] TP SCH ×2 (08:08→16:12)
[2017-09-23] MEDS: DOCUSATE SODIUM 100 MG CAPSULE PO SCH (08:08)
[2017-09-23] MEDS: OMEPRAZOLE 20 MG CAPSULE PO SCH (08:08)
[2017-09-23] MEDS: NICOTINE 21 MG/24 HOUR PATCH TD SCH (08:08)
[2017-09-23 08:27] VITALS: BP 108/76
[2017-09-23] MEDS: ChlorproMAZINE HCL 50 MG TABLET PO PRN ×2 (10:15→21:05)
[2017-09-23 16:00] VITALS: BP 107/66
[2017-09-23 16:08] VITALS: BP 107/66
[2017-09-23] MEDS: MIRTAZAPINE 15 MG TABLET PO SCH (20:08)
[2017-09-23] MEDS: ZOLPIDEM TARTRATE 5 MG TABLET PO PRN (22:01)
[2017-09-24] VITALS: BP 120/78
[2017-09-24 03:07] VITALS: BP 113/76
[2017-09-24] MEDS: ChlorproMAZINE HCL 50 MG TABLET PO PRN (03:12)
[2017-09-24] MEDS: IBUPROFEN 600 MG TABLET PO PRN ×2 (03:12→18:39)
[2017-09-24] MEDS: DULoxetine HCL 60 MG CAPSULE PO SCH (07:04)
[2017-09-24] MEDS: GABAPENTIN 300 MG CAPSULE PO SCH ×4 (07:06→21:29)
[2017-09-24] MEDS: CARISOPRODOL 350 MG TABLET PO SCH ×2 (07:06→14:45)
[2017-09-24] MEDS: METHADONE HCL 10 MG TABLET PO SCH (07:07)
[2017-09-24 08:34] VITALS: BP 110/65
[2017-09-24] MEDS: TAMSULOSIN HCL 0.4 MG CAPSULE PO SCH (08:40)
[2017-09-24] MEDS: FUROSEMIDE 40 MG TABLET PO SCH (08:40)
[2017-09-24] MEDS: DOCUSATE SODIUM 100 MG CAPSULE PO SCH (08:40)
[2017-09-24] MEDS: OMEPRAZOLE 20 MG CAPSULE PO SCH (08:41)
[2017-09-24] MEDS: NICOTINE 21 MG/24 HOUR PATCH TD SCH (08:41)
[2017-09-24] MEDS: MULTIVITAMINS WITH IRON TABLET PO SCH (08:41)
[2017-09-24] MEDS: CHOLECALCIFEROL (VIT D3) 1,000 UNITS TABLET PO SCH (08:41)
[2017-09-24] MEDS: DICLOFENAC SODIUM 1% 100 GM GEL [4GM] TP SCH ×2 (08:43→17:16)
[2017-09-24 16:07] VITALS: BP 108/71
[2017-09-24] MEDS: ClonazePAM 0.5 MG TABLET PO PRN (18:40)
[2017-09-24] MEDS: MIRTAZAPINE 15 MG TABLET PO SCH (21:29)
[2017-09-25 03:11] VITALS: BP 118/69
[2017-09-25] MEDS: ClonazePAM 0.5 MG TABLET PO PRN ×2 (03:15→10:16)
[2017-09-25] MEDS: IBUPROFEN 600 MG TABLET PO PRN (03:16)
[2017-09-25] MEDS: GABAPENTIN 300 MG CAPSULE PO SCH ×2 (06:49→13:16)
[2017-09-25] MEDS: CARISOPRODOL 350 MG TABLET PO SCH ×2 (06:49→14:27)
[2017-09-25] MEDS: METHADONE HCL 10 MG TABLET PO SCH (06:49)
[2017-09-25] MEDS: DULoxetine HCL 60 MG CAPSULE PO SCH (06:49)
[2017-09-25 08:17] VITALS: BP 108/66
[2017-09-25] MEDS: DOCUSATE SODIUM 100 MG CAPSULE PO SCH (08:47)
[2017-09-25] MEDS: FUROSEMIDE 40 MG TABLET PO SCH (08:47)
[2017-09-25] MEDS: CHOLECALCIFEROL (VIT D3) 1,000 UNITS TABLET PO SCH (08:47)
[2017-09-25] MEDS: MULTIVITAMINS WITH IRON TABLET PO SCH (08:48)
[2017-09-25] MEDS: TAMSULOSIN HCL 0.4 MG CAPSULE PO SCH (08:48)
[2017-09-25] MEDS: OMEPRAZOLE 20 MG CAPSULE PO SCH (08:48)
[2017-09-25] MEDS: NICOTINE 21 MG/24 HOUR PATCH TD SCH (08:49)
[2017-09-25] MEDS: DICLOFENAC SODIUM 1% 100 GM GEL [4GM] TP SCH (08:50)
[2017-09-25 10:20] VITALS: BP 108/66
[2017-09-25] MEDS ORDERED: MIRT15 PO (14:07)
[2017-09-25] MEDS ORDERED: GABA-531 PO (14:07)
[2017-09-25] MEDS ORDERED: DULO60CA44 PO (14:07)
[2017-09-25] MEDS ORDERED: ACAM333T7 PO (14:07)
== END 2017-09-25 15:05 | disposition home or self-care (01) | DRG 885 ==
LOC: B3A 21:50 → B2S 09-18 16:44
PROVIDERS: ADMIT Psychiatry & Neurology Psychiatry; ATTEND Psychiatry & Neurology Psychiatry
DX: F25.9 Schizoaffective disorder, unspecified (principal); F11.20 Opioid dependence, uncomplicated; R45.851 Suicidal ideations; B18.2 Chronic viral hepatitis C; N40.0 Benign prostatic hyperplasia without lower urinary tract symptoms; K21.9 Gastro-esophageal reflux disease without esophagitis; I10 Essential (primary) hypertension; F17.200 Nicotine dependence, unspecified, uncomplicated; J44.9 Chronic obstructive pulmonary disease, unspecified; Z96.653 Presence of artificial knee joint, bilateral; Z96.643 Presence of artificial hip joint, bilateral; F12.90 Cannabis use, unspecified, uncomplicated; G89.29 Other chronic pain; Z91.013 Allergy to seafood; Z59.0 Homelessness; Z79.899 Other long term (current) drug therapy; Z99.3 Dependence on wheelchair; Z82.49 Family history of ischemic heart disease and other diseases of the circulatory system; Z91.14 Patient's other noncompliance with medication regimen; Z71.6 Tobacco abuse counseling; Z56.0 Unemployment, unspecified
CPT/HCPCS: 82306; 83036; 84439; 84443; 87081; 99285; Q0162

== ENCOUNTER 2018-03-25 14:10 | Inpatient (IN) | payer MEDICARE, MEDICAID ==
[~2018-03-25] VITALS: Ht 188 cm; Wt 128.5 kg
[~2018-03-25 14:10] MED LIST changes: +ACAM333T7 PO; +BACI30OI6 TP; +BACTDSB PO; -BUPR-93 PO; -CARI350T PO; +DULO60CA44 PO; +GABA-533 PO; -HYDR30OI13 TP; -MULT-57 PO
[2018-03-25 15:13] VITALS: BP 144/75
[2018-03-25] MEDS ORDERED: HydrOXYzine PAMOATE 50 MG CAPSULE PO PRN ×2 (15:15→16:15)
[2018-03-25] MEDS ORDERED: MIRT15 PO (15:53)
[2018-03-25] MEDS ORDERED: ACAM333T7 PO (15:53)
[2018-03-25] MEDS ORDERED: DULO60CA44 PO (15:53)
[2018-03-25] MEDS ORDERED: TUBERCULIN, PURIFIED PROTEIN DERIVATIVE 5 TU/0.1 ML SYG ID ONE (16:15)
[2018-03-25] MEDS ORDERED: PROMETHAZINE HCL 25 MG TABLET PO PRN (16:15)
[2018-03-25] MEDS ORDERED: GABAPENTIN 300 MG CAPSULE PO PRN (16:15)
[2018-03-25] MEDS ORDERED: ACETAMINOPHEN 325 MG TABLET PO PRN (16:15)
[2018-03-25] MEDS ORDERED: LOPERAMIDE HCL 2 MG CAPSULE PO PRN (16:15)
[2018-03-25] MEDS ORDERED: GuaiFENesin/D-METHORPHAN [SUGAR-FREE] 200-20MG/10 ML SYRUP UDCUP PO PRN (16:15)
[2018-03-25] MEDS ORDERED: MAGNESIUM HYDROXIDE SUSPENSION 30 ML UDCUP PO PRN (16:15)
[2018-03-25] MEDS ORDERED: MAG HYDROX/AL HYDROX/SIMETH ES 30 ML SUSPENSION UDCUP PO PRN (16:15)
[2018-03-25] MEDS: CARISOPRODOL 350 MG TABLET PO SCH (16:42)
[2018-03-25 16:44] VITALS: BP 122/79
[2018-03-25 17:03] VITALS: BP 125/80
[2018-03-25] MEDS: OxyCODONE HCL/ACETAMINOPHEN 5-325 MG TABLET PO PRN (17:03)
[2018-03-25] MEDS ORDERED: ChlorproMAZINE HCL 100 MG TABLET PO PRN (19:30)
[2018-03-25] MEDS: THIAMINE HCL 100 MG TABLET PO SCH (20:09)
[2018-03-25] MEDS: MIRTAZAPINE 15 MG TABLET PO SCH (20:09)
[2018-03-26 06:55] VITALS: BP 124/82
[2018-03-26 08:13] VITALS: BP 106/63
[2018-03-26] MEDS ORDERED: BuPROPion HCL 75 MG TABLET PO SCH (09:00)
[2018-03-26] MEDS: THIAMINE HCL 100 MG TABLET PO SCH ×2 (09:02→16:01)
[2018-03-26] MEDS: FOLIC ACID 1 MG TABLET PO SCH (09:03)
[2018-03-26] MEDS: CARISOPRODOL 350 MG TABLET PO SCH ×2 (09:03→17:07)
[2018-03-26] MEDS: MULTIVITAMINS WITH MINERALS, THERAPEUTIC TABLET PO SCH (09:03)
[2018-03-26] MEDS: BuPROPion HCL XL 150 MG ER TABLET PO SCH (09:03)
[2018-03-26 10:35] VITALS: BP 110/72
[2018-03-26] MEDS: OxyCODONE HCL/ACETAMINOPHEN 5-325 MG TABLET PO PRN ×3 (10:35→21:52)
[2018-03-26 16:00] VITALS: BP 108/82
[2018-03-26] MEDS: GABAPENTIN 300 MG CAPSULE PO SCH ×2 (16:01→21:51)
[2018-03-26 21:45] VITALS: BP 114/76
[2018-03-26] MEDS: MIRTAZAPINE 15 MG TABLET PO SCH (21:51)
[2018-03-27 01:15] VITALS: BP 110/80
[2018-03-27 08:15] VITALS: BP 121/72
[2018-03-27] MEDS: BuPROPion HCL XL 150 MG ER TABLET PO SCH (08:42)
[2018-03-27] MEDS: MULTIVITAMINS WITH MINERALS, THERAPEUTIC TABLET PO SCH (08:42)
[2018-03-27] MEDS: THIAMINE HCL 100 MG TABLET PO SCH ×2 (08:42→17:07)
[2018-03-27] MEDS: FOLIC ACID 1 MG TABLET PO SCH (08:42)
[2018-03-27] MEDS: CARISOPRODOL 350 MG TABLET PO SCH ×2 (08:42→17:07)
[2018-03-27] MEDS: GABAPENTIN 300 MG CAPSULE PO SCH ×2 (08:42→12:08)
[2018-03-27 10:50] VITALS: BP 114/68
[2018-03-27] MEDS: OxyCODONE HCL/ACETAMINOPHEN 5-325 MG TABLET PO PRN ×2 (10:50→16:01)
[2018-03-27] MEDS ORDERED: GABAPENTIN 400 MG CAPSULE PO SCH (13:00)
[2018-03-27 16:01] VITALS: BP 121/76
[2018-03-27] MEDS: GABAPENTIN 400 MG CAPSULE PO SCH ×2 (17:06→20:17)
[2018-03-27] MEDS: MIRTAZAPINE 15 MG TABLET PO SCH (20:17)
[2018-03-27] MEDS ORDERED: ALBUTEROL SULFATE HFA 90 MCG/PUFF 8 GM INHALER IH PRN (23:15)
[2018-03-27] MEDS ORDERED: ACETAMINOPHEN 325 MG TABLET PO PRN (23:15)
[2018-03-27] MEDS ORDERED: BACITRACIN 28.4 GM OINTMENT TP PRN (23:15)
[2018-03-27] MEDS ORDERED: CloNIDine HCL 0.1 MG TABLET PO PRN (23:15)
[2018-03-27] MEDS ORDERED: ONDANSETRON HCL 4 MG TABLET PO PRN (23:15)
[2018-03-27] MEDS ORDERED: IBUPROFEN 600 MG TABLET PO PRN (23:15)
[2018-03-27] MEDS ORDERED: BENZOCAINE/MENTHOL LOZENGE MM PRN (23:15)
[2018-03-27] MEDS ORDERED: PETROLATUM,WHITE 71 GM JELLY TP PRN (23:15)
[2018-03-28 00:52] VITALS: BP 129/77
[2018-03-28 08:02] VITALS: BP 112/68
[2018-03-28] MEDS: GABAPENTIN 400 MG CAPSULE PO SCH ×4 (08:26→20:01)
[2018-03-28] MEDS: BuPROPion HCL XL 150 MG ER TABLET PO SCH (08:26)
[2018-03-28] MEDS: THIAMINE HCL 100 MG TABLET PO SCH ×2 (08:26→16:14)
[2018-03-28] MEDS: TAMSULOSIN HCL 0.4 MG CAPSULE PO SCH (08:26)
[2018-03-28] MEDS: DOCUSATE SODIUM 100 MG CAPSULE PO SCH (08:26)
[2018-03-28] MEDS: FUROSEMIDE 40 MG TABLET PO SCH (08:26)
[2018-03-28] MEDS: CHOLECALCIFEROL (VIT D3) 1,000 UNITS TABLET PO SCH (08:27)
[2018-03-28] MEDS: FOLIC ACID 1 MG TABLET PO SCH (08:27)
[2018-03-28] MEDS: MULTIVITAMINS WITH MINERALS, THERAPEUTIC TABLET PO SCH (08:27)
[2018-03-28] MEDS: CARISOPRODOL 350 MG TABLET PO SCH ×3 (08:27→20:33)
[2018-03-28] MEDS: OMEPRAZOLE 20 MG CAPSULE PO SCH (08:27)
[2018-03-28 10:25] VITALS: BP 121/74
[2018-03-28] MEDS: OxyCODONE HCL/ACETAMINOPHEN 5-325 MG TABLET PO PRN ×2 (10:25→18:51)
[2018-03-28 16:01] VITALS: BP 112/62
[2018-03-28 19:00] VITALS: BP 120/66
[2018-03-28] MEDS: MIRTAZAPINE 15 MG TABLET PO SCH (20:00)
[2018-03-28] MEDS: ESZOPICLONE 2 MG TABLET PO PRN (20:52)
[2018-03-29 01:26] VITALS: BP 122/73
[2018-03-29 08:11] VITALS: BP 119/62
[2018-03-29] MEDS: BuPROPion HCL XL 150 MG ER TABLET PO SCH (08:14)
[2018-03-29] MEDS: CHOLECALCIFEROL (VIT D3) 1,000 UNITS TABLET PO SCH (08:15)
[2018-03-29] MEDS: TAMSULOSIN HCL 0.4 MG CAPSULE PO SCH (08:15)
[2018-03-29] MEDS: GABAPENTIN 400 MG CAPSULE PO SCH ×4 (08:15→20:05)
[2018-03-29] MEDS: DOCUSATE SODIUM 100 MG CAPSULE PO SCH (08:16)
[2018-03-29] MEDS: MULTIVITAMINS WITH MINERALS, THERAPEUTIC TABLET PO SCH (08:16)
[2018-03-29] MEDS: OMEPRAZOLE 20 MG CAPSULE PO SCH (08:16)
[2018-03-29] MEDS: CARISOPRODOL 350 MG TABLET PO SCH ×3 (08:16→20:05)
[2018-03-29] MEDS: FUROSEMIDE 40 MG TABLET PO SCH (08:16)
[2018-03-29] MEDS: THIAMINE HCL 100 MG TABLET PO SCH ×2 (08:16→16:30)
[2018-03-29] MEDS: FOLIC ACID 1 MG TABLET PO SCH (08:16)
[2018-03-29 08:48] LABS: BASOPHILS % (AUTO) 0.4 % (0.0-2.0); EOSINOPHILS % (AUTO) 2.7 % (1.0-6.0); HEMATOCRIT 43.8 % (41-53); HEMOGLOBIN 14.8 g/dL (13.5-17.5); LYMPHOCYTES # (AUTO) 2.7 K/uL (1.0-4.8); LYMPHOCYTES % (AUTO) 43.3 % (22.0-44.0); MEAN CORPUSCULAR HGB CONC 33.8 G/dL (31.0-37.0); MEAN CORPUSCULAR VOLUME 95 fL (80-100); MONOCYTES # (AUTO) 0.7 K/uL (0.1-1.0); MONOCYTES % (AUTO) 11.8 % (2.0-9.0); NEUTROPHILS # (AUTO) 2.6 K/uL (1.8-7.7); NEUTROPHILS % (AUTO) 41.8 % (40.0-70.0); PLATELET COUNT (AUTO) 225 K/uL (150-450); RED BLOOD CELL COUNT(AUTO) 4.64 MIL/uL (4.50-5.90); RED CELL DISTRIBUTION WIDTH 13.9 % (11.5-14.5)
[2018-03-29 09:06] LABS: ALANINE AMINOTRANSFERASE 119 U/L (12-78); ALBUMIN 3.2 g/dL (3.4-5.0); ALKALINE PHOSPHATASE 69 U/L (46-116); ANION GAP 4 mmol/L (8-16); ASPARTATE AMINOTRANSFERASE 64 U/L (15-37); BILIRUBIN,TOTAL 0.2 mg/dL (0.1-1.0); CALCIUM, TOTAL 8.7 mg/dL (8.8-10.5); CARBON DIOXIDE 31 mmol/L (22-29); CHLORIDE 103 mmol/L (98-107); CHOL/HDL RATIO 2.3 (4.2-7.3); CHOLESTEROL 121 mg/dL (131-200); CREATININE 1.03 mg/dL (0.60-1.30); FREE T4 (FREE THYROXINE) 1.14 ng/dL (0.76-1.46); GLOMERULAR FILTR. RATE CALC > 60 mL/min (>60); GLUCOSE,RANDOM 93 mg/dL (70-110); HDL CHOLESTEROL 52 mg/dL (40-60); LDL CHOL (CALC.) 43 mg/dL (0-130); POTASSIUM 4.2 mmol/L (3.5-5.1); SODIUM SERUM 138 mmol/L (136-145); THYROID STIMULATING HORMONE 2.45 uIU/mL (0.36-3.74); TOTAL PROTEIN, SERUM 7.2 g/dL (6.4-8.2); TRIGLYCERIDES 130 mg/dL (15-150); UREA NITROGEN, BLOOD 17 mg/dL (7-18)
[2018-03-29 10:57] VITALS: BP 120/84
[2018-03-29] MEDS: OxyCODONE HCL/ACETAMINOPHEN 5-325 MG TABLET PO PRN (10:57)
[2018-03-29 16:01] VITALS: BP 116/73
[2018-03-29] MEDS: MIRTAZAPINE 15 MG TABLET PO SCH (20:05)
[2018-03-30 00:15] VITALS: BP 118/76
[2018-03-30 08:36] VITALS: BP 114/65
[2018-03-30] MEDS: FUROSEMIDE 40 MG TABLET PO SCH (08:53)
[2018-03-30] MEDS: CHOLECALCIFEROL (VIT D3) 1,000 UNITS TABLET PO SCH (08:54)
[2018-03-30] MEDS: CARISOPRODOL 350 MG TABLET PO SCH ×3 (08:54→20:27)
[2018-03-30] MEDS: BuPROPion HCL XL 150 MG ER TABLET PO SCH (08:55)
[2018-03-30] MEDS: DOCUSATE SODIUM 100 MG CAPSULE PO SCH (09:00)
[2018-03-30] MEDS: OMEPRAZOLE 20 MG CAPSULE PO SCH (10:19)
[2018-03-30] MEDS: MULTIVITAMINS WITH MINERALS, THERAPEUTIC TABLET PO SCH (10:19)
[2018-03-30] MEDS: GABAPENTIN 400 MG CAPSULE PO SCH ×2 (10:19→13:02)
[2018-03-30] MEDS: THIAMINE HCL 100 MG TABLET PO SCH ×2 (10:19→16:30)
[2018-03-30] MEDS: FOLIC ACID 1 MG TABLET PO SCH (10:20)
[2018-03-30] MEDS: TAMSULOSIN HCL 0.4 MG CAPSULE PO SCH (10:35)
[2018-03-30] MEDS: OxyCODONE HCL/ACETAMINOPHEN 5-325 MG TABLET PO PRN ×2 (10:43→19:28)
[2018-03-30 16:06] VITALS: BP 115/83
[2018-03-30] MEDS: GABAPENTIN 300 MG CAPSULE PO SCH (16:31)
[2018-03-30 19:26] VITALS: BP 119/85
[2018-03-30] MEDS: MIRTAZAPINE 15 MG TABLET PO SCH (20:27)
[2018-03-31 01:40] VITALS: BP 118/91
[2018-03-31 08:01] VITALS: BP 119/63
[2018-03-31] MEDS: FUROSEMIDE 40 MG TABLET PO SCH (08:23)
[2018-03-31] MEDS: DOCUSATE SODIUM 100 MG CAPSULE PO SCH (08:23)
[2018-03-31] MEDS: OMEPRAZOLE 20 MG CAPSULE PO SCH (08:23)
[2018-03-31] MEDS: BuPROPion HCL XL 150 MG ER TABLET PO SCH (08:23)
[2018-03-31] MEDS: MULTIVITAMINS WITH MINERALS, THERAPEUTIC TABLET PO SCH (08:23)
[2018-03-31] MEDS: THIAMINE HCL 100 MG TABLET PO SCH ×2 (08:23→16:44)
[2018-03-31] MEDS: CARISOPRODOL 350 MG TABLET PO SCH ×3 (08:24→20:15)
[2018-03-31] MEDS: GABAPENTIN 300 MG CAPSULE PO SCH ×3 (08:24→16:44)
[2018-03-31] MEDS: CHOLECALCIFEROL (VIT D3) 1,000 UNITS TABLET PO SCH (08:24)
[2018-03-31] MEDS: FOLIC ACID 1 MG TABLET PO SCH (08:24)
[2018-03-31] MEDS: TAMSULOSIN HCL 0.4 MG CAPSULE PO SCH (08:24)
[2018-03-31 12:49] VITALS: BP 122/78
[2018-03-31] MEDS: OxyCODONE HCL/ACETAMINOPHEN 5-325 MG TABLET PO PRN (12:49)
[2018-03-31 16:08] VITALS: BP 118/73
[2018-03-31] MEDS: MIRTAZAPINE 15 MG TABLET PO SCH (20:15)
[2018-03-31] MEDS: ESZOPICLONE 2 MG TABLET PO PRN (23:05)
[2018-04-01 03:10] VITALS: BP 139/95
[2018-04-01] MEDS: OxyCODONE HCL/ACETAMINOPHEN 5-325 MG TABLET PO PRN ×2 (03:17→18:16)
[2018-04-01 08:11] VITALS: BP 110/66
[2018-04-01] MEDS: CHOLECALCIFEROL (VIT D3) 1,000 UNITS TABLET PO SCH (08:49)
[2018-04-01] MEDS: THIAMINE HCL 100 MG TABLET PO SCH ×2 (08:49→17:06)
[2018-04-01] MEDS: OMEPRAZOLE 20 MG CAPSULE PO SCH (08:49)
[2018-04-01] MEDS: FOLIC ACID 1 MG TABLET PO SCH (08:49)
[2018-04-01] MEDS: DOCUSATE SODIUM 100 MG CAPSULE PO SCH (08:49)
[2018-04-01] MEDS: MULTIVITAMINS WITH MINERALS, THERAPEUTIC TABLET PO SCH (08:49)
[2018-04-01] MEDS: CARISOPRODOL 350 MG TABLET PO SCH ×3 (08:49→20:09)
[2018-04-01] MEDS: GABAPENTIN 300 MG CAPSULE PO SCH ×3 (08:50→17:06)
[2018-04-01] MEDS: FUROSEMIDE 40 MG TABLET PO SCH (08:50)
[2018-04-01] MEDS: TAMSULOSIN HCL 0.4 MG CAPSULE PO SCH (11:43)
[2018-04-01] MEDS: BuPROPion HCL XL 150 MG ER TABLET PO SCH (11:43)
[2018-04-01 16:22] VITALS: BP 119/94
[2018-04-01] MEDS: MIRTAZAPINE 15 MG TABLET PO SCH (20:09)
[2018-04-02 06:37] VITALS: BP 117/60
[2018-04-02 08:11] VITALS: BP 107/66
[2018-04-02] MEDS: GABAPENTIN 300 MG CAPSULE PO SCH ×3 (08:24→16:19)
[2018-04-02] MEDS: FUROSEMIDE 40 MG TABLET PO SCH (08:24)
[2018-04-02] MEDS: THIAMINE HCL 100 MG TABLET PO SCH ×2 (08:24→16:17)
[2018-04-02] MEDS: CARISOPRODOL 350 MG TABLET PO SCH ×3 (08:24→20:18)
[2018-04-02] MEDS: DOCUSATE SODIUM 100 MG CAPSULE PO SCH (08:24)
[2018-04-02] MEDS: TAMSULOSIN HCL 0.4 MG CAPSULE PO SCH (08:24)
[2018-04-02] MEDS: OMEPRAZOLE 20 MG CAPSULE PO SCH (08:24)
[2018-04-02] MEDS: FOLIC ACID 1 MG TABLET PO SCH (08:24)
[2018-04-02] MEDS: MULTIVITAMINS WITH MINERALS, THERAPEUTIC TABLET PO SCH (08:24)
[2018-04-02] MEDS: CHOLECALCIFEROL (VIT D3) 1,000 UNITS TABLET PO SCH (08:24)
[2018-04-02] MEDS: BuPROPion HCL XL 150 MG ER TABLET PO SCH (08:25)
[2018-04-02 12:18] VITALS: BP 119/79
[2018-04-02] MEDS: OxyCODONE HCL/ACETAMINOPHEN 5-325 MG TABLET PO PRN ×2 (12:18→21:15)
[2018-04-02 16:18] VITALS: BP 118/82
[2018-04-02] MEDS: GABAPENTIN 400 MG CAPSULE PO SCH (17:38)
[2018-04-02] MEDS: MIRTAZAPINE 15 MG TABLET PO SCH (20:19)
[2018-04-02] MEDS: ESZOPICLONE 2 MG TABLET PO PRN (21:09)
[2018-04-02 21:15] VITALS: BP 115/78
[2018-04-03 06:00] VITALS: BP 117/82
[2018-04-03 08:14] VITALS: BP 117/64
[2018-04-03] MEDS: OMEPRAZOLE 20 MG CAPSULE PO SCH (08:36)
[2018-04-03] MEDS: FOLIC ACID 1 MG TABLET PO SCH (08:36)
[2018-04-03] MEDS: TAMSULOSIN HCL 0.4 MG CAPSULE PO SCH (08:36)
[2018-04-03] MEDS: DOCUSATE SODIUM 100 MG CAPSULE PO SCH (08:36)
[2018-04-03] MEDS: MULTIVITAMINS WITH MINERALS, THERAPEUTIC TABLET PO SCH (08:36)
[2018-04-03] MEDS: THIAMINE HCL 100 MG TABLET PO SCH ×2 (08:36→16:31)
[2018-04-03] MEDS: GABAPENTIN 400 MG CAPSULE PO SCH ×3 (08:36→16:31)
[2018-04-03] MEDS: CHOLECALCIFEROL (VIT D3) 1,000 UNITS TABLET PO SCH (08:36)
[2018-04-03] MEDS: CARISOPRODOL 350 MG TABLET PO SCH ×3 (08:36→20:24)
[2018-04-03] MEDS: BuPROPion HCL XL 150 MG ER TABLET PO SCH (08:36)
[2018-04-03] MEDS: FUROSEMIDE 40 MG TABLET PO SCH (08:36)
[2018-04-03 12:09] VITALS: BP 126/79
[2018-04-03] MEDS: OxyCODONE HCL/ACETAMINOPHEN 5-325 MG TABLET PO PRN ×2 (12:09→21:09)
[2018-04-03 16:24] VITALS: BP 144/91
[2018-04-03] MEDS: MIRTAZAPINE 15 MG TABLET PO SCH (20:24)
[2018-04-03 21:07] VITALS: BP 122/74
[2018-04-04 01:47] VITALS: BP 119/83
[2018-04-04 08:03] VITALS: BP 101/55
[2018-04-04 08:25] VITALS: BP 112/62
[2018-04-04] MEDS: THIAMINE HCL 100 MG TABLET PO SCH (08:27)
[2018-04-04] MEDS: BuPROPion HCL XL 150 MG ER TABLET PO SCH (08:27)
[2018-04-04] MEDS: CARISOPRODOL 350 MG TABLET PO SCH ×3 (08:27→20:02)
[2018-04-04] MEDS: DOCUSATE SODIUM 100 MG CAPSULE PO SCH (08:27)
[2018-04-04] MEDS: GABAPENTIN 400 MG CAPSULE PO SCH ×3 (08:27→16:56)
[2018-04-04] MEDS: MULTIVITAMINS WITH MINERALS, THERAPEUTIC TABLET PO SCH (08:27)
[2018-04-04] MEDS: FUROSEMIDE 40 MG TABLET PO SCH (08:27)
[2018-04-04] MEDS: FOLIC ACID 1 MG TABLET PO SCH (08:27)
[2018-04-04] MEDS: TAMSULOSIN HCL 0.4 MG CAPSULE PO SCH (08:27)
[2018-04-04] MEDS: CHOLECALCIFEROL (VIT D3) 1,000 UNITS TABLET PO SCH (08:27)
[2018-04-04] MEDS: OMEPRAZOLE 20 MG CAPSULE PO SCH (08:28)
[2018-04-04 12:32] VITALS: BP 118/77
[2018-04-04] MEDS: OxyCODONE HCL/ACETAMINOPHEN 5-325 MG TABLET PO PRN ×2 (12:32→21:38)
[2018-04-04 17:00] VITALS: BP 118/75
[2018-04-04] MEDS: MIRTAZAPINE 15 MG TABLET PO SCH (20:02)
[2018-04-04 21:38] VITALS: BP 127/85
[2018-04-05 04:25] VITALS: BP 133/84
[2018-04-05] MEDS: DOCUSATE SODIUM 100 MG CAPSULE PO SCH (08:19)
[2018-04-05] MEDS: BuPROPion HCL XL 150 MG ER TABLET PO SCH (08:19)
[2018-04-05] MEDS: CHOLECALCIFEROL (VIT D3) 1,000 UNITS TABLET PO SCH (08:19)
[2018-04-05] MEDS: GABAPENTIN 400 MG CAPSULE PO SCH ×3 (08:19→17:02)
[2018-04-05] MEDS: FUROSEMIDE 40 MG TABLET PO SCH (08:19)
[2018-04-05] MEDS: TAMSULOSIN HCL 0.4 MG CAPSULE PO SCH (08:20)
[2018-04-05] MEDS: CARISOPRODOL 350 MG TABLET PO SCH ×3 (08:20→20:38)
[2018-04-05] MEDS: OMEPRAZOLE 20 MG CAPSULE PO SCH (08:20)
[2018-04-05] MEDS: MULTIVITAMINS WITH MINERALS, THERAPEUTIC TABLET PO SCH (08:20)
[2018-04-05 08:25] VITALS: BP 121/63
[2018-04-05 15:28] VITALS: BP 126/78
[2018-04-05] MEDS: OxyCODONE HCL/ACETAMINOPHEN 5-325 MG TABLET PO PRN (15:28)
[2018-04-05 16:15] VITALS: BP 127/76
[2018-04-05] MEDS: MIRTAZAPINE 15 MG TABLET PO SCH (20:38)
[2018-04-06 02:50] VITALS: BP 124/76
[2018-04-06 08:00] VITALS: BP 103/57
[2018-04-06] MEDS: DOCUSATE SODIUM 100 MG CAPSULE PO SCH (08:40)
[2018-04-06] MEDS: GABAPENTIN 400 MG CAPSULE PO SCH ×3 (08:41→16:27)
[2018-04-06] MEDS: BuPROPion HCL XL 150 MG ER TABLET PO SCH (08:42)
[2018-04-06] MEDS: CARISOPRODOL 350 MG TABLET PO SCH ×2 (08:42→16:26)
[2018-04-06] MEDS: MULTIVITAMINS WITH MINERALS, THERAPEUTIC TABLET PO SCH (08:42)
[2018-04-06] MEDS: CHOLECALCIFEROL (VIT D3) 1,000 UNITS TABLET PO SCH (08:42)
[2018-04-06] MEDS: OMEPRAZOLE 20 MG CAPSULE PO SCH (08:43)
[2018-04-06] MEDS: FUROSEMIDE 40 MG TABLET PO SCH (08:43)
[2018-04-06] MEDS: TAMSULOSIN HCL 0.4 MG CAPSULE PO SCH (08:43)
[2018-04-06 13:07] VITALS: BP 134/87
[2018-04-06] MEDS: OxyCODONE HCL/ACETAMINOPHEN 5-325 MG TABLET PO PRN (13:07)
[2018-04-06] MEDS ORDERED: MIRT15 PO (15:17)
[2018-04-06] MEDS ORDERED: BUPR-47 PO (15:17)
[2018-04-06] MEDS ORDERED: ACAM333T7 PO (15:17)
[2018-04-06] MEDS ORDERED: GABA-533 PO (15:17)
[2018-04-06 16:16] VITALS: BP 124/68
== END 2018-04-06 18:30 | disposition home or self-care (01) | DRG 885 ==
LOC: B2X 16:02
PROVIDERS: ADMIT Psychiatry & Neurology Psychiatry; ATTEND Psychiatry & Neurology Psychiatry
DX: F33.2 Major depressive disorder, recurrent severe without psychotic features (principal); B18.2 Chronic viral hepatitis C; F11.20 Opioid dependence, uncomplicated; R45.851 Suicidal ideations; F17.200 Nicotine dependence, unspecified, uncomplicated; G47.00 Insomnia, unspecified; G89.29 Other chronic pain; I10 Essential (primary) hypertension; K21.9 Gastro-esophageal reflux disease without esophagitis; J44.9 Chronic obstructive pulmonary disease, unspecified; N40.0 Benign prostatic hyperplasia without lower urinary tract symptoms; M19.90 Unspecified osteoarthritis, unspecified site; Z59.0 Homelessness; Z76.5 Malingerer [conscious simulation]; Z71.6 Tobacco abuse counseling; Z79.899 Other long term (current) drug therapy; Z82.49 Family history of ischemic heart disease and other diseases of the circulatory system; Z96.653 Presence of artificial knee joint, bilateral; Z99.3 Dependence on wheelchair; Z91.19 Patient's noncompliance with other medical treatment and regimen; Z91.013 Allergy to seafood
CPT/HCPCS: 83036; 84439; 84443